=== PATIENT | female | born 1980 | race Caucasian/White ===

== ENCOUNTER 2019-04-03 08:25 | Emergency (ER) | payer SELFPAY ==
[2019-04-03 08:34] VITALS: BP 124/83; PULSE 99; RESP 18; TEMP 36.5; O2SAT 99; BMI 25.0
--- NOTE | 2019-04-03 08:45 | W.ED.ABDPA2 ---
HPI - Abdominal Pain General: Chief Complaint: Abdominal Pain Stated Complaint: abd pain, tooth pain Time Seen by Provider: 04/03/19 08:35 Source: patient Mode of arrival: ambulatory Limitations: no limitations History of Present Illness: HPI narrative: Patient comes in today for complaints of left lower molar pain for the last 2 to 3 days. And epigastric discomfort for the last 3 to 4 months. Patient appears well. Patient appears in mild pain. Patient states that she has had been recently diagnosed with HPV and needs a biopsy of her cervix. Patient reports that she has had dental problems for the last 4 years with some significant gum deterioration. Patient lacks the funds and insurance to get definitive care. Review of Systems General: Reports: 10 or more systems reviewed and unremarkable except in HPI and below ENMT: Reports: dental pain GI: Reports: abdominal pain PFSH ED PFSH: Statuses (acute, chronic, etc) shown below reflect problem list status as previously entered and may not be historically accurate Social History Smoking and tobacco status: current every day smoker Physical Exam Const: COMMON NORMALS: no apparent distress and oriented x3 GENERAL APPEARANCE: cooperative HENMT: COMMON NORMALS: normocephalic, external ears normal, EAC's normal, TM's normal bilaterally and external nose normal HEAD & SCALP: normal to inspection and normocephalic FACE & SINUS: normal facial exam NOSE: external nose normal GENERAL EAR: hearing not grossly impaired EXTERNAL EAR: Yes external ears normal EXTERNAL AUDITORY CANAL: EAC's normal TYMPANIC MEMBRANE: TM's normal bilaterally MOUTH: oral and palatal mucosa normal THROAT: posterior oropharynx normal Eye: COMMON NORMALS: PERRL and EOMs intact bilaterally PUPIL: Yes PERRL Neck/C-Spine: COMMON NORMALS: full ROM and no lymphadenopathy Lymph: LYMPHATIC: no lymphedema noted Chest: COMMONS NORMALS: inspection of chest normal and palpation of chest normal Resp: COMMON NORMALS: normal respiratory effort and clear to auscultation bilaterally AUSCULTATION: clear to auscultation bilaterally Cardio: COMMON NORMALS: regular rate and regular rhythm RATE: regular rate RHYTHM: regular rhythm GI: COMMON NORMALS: normal to inspection, nondistended, normoactive bowel sounds PALPATION: Yes tender (epigastric, mild, diffuse) : COMMON NORMALS: Yes no CVA tenderness BLADDER/KIDNEY EXAM: Yes no CVA tenderness Back/Pelvis: COMMON NORMALS: no CVA tenderness and thoracic and lumbar spine normal to inspection Extremity: COMMON NORMALS: normal to inspection GENERAL: No edema Neuro: COMMON NORMALS: oriented x3, moves all extremities and no focal motor deficits Psych: COMMON NORMALS: mental status grossly normal and cooperative Skin: COMMON NORMALS: no rashes or lesions noted GENERAL SKIN EXAM: no rashes or lesions noted Course Vital Signs: Vital signs: Vital Signs Temperature 97.7 F 04/03/19 08:34 Pulse Rate 99 04/03/19 08:34 Respiratory Rate 18 04/03/19 08:34 Blood Pressure 124/83 04/03/19 08:34 Pulse Oximetry 99 04/03/19 08:34 MDM - Abdominal Pain MDM Narrative: Medical decision making narrative: Patient comes in today with complaints of abdominal pain and dental pain. On exam patient has a small abscess to the second molar on the left lower jaw. Patient has poor dentition with significant recession of the gingiva. Decay is noted in the front lower teeth. Respirations are even lungs are clear to auscultation. Abdomen is soft no organomegaly and central epigastric tenderness is noted. Vital signs are stable. Differential diagnosis includes pancreatitis, cholecystitis, gastritis, gastroenteritis, dental infection, malingering, gingivitis. Laboratory values were normal. Ruling out cholecystitis and pancreatitis. Blood count was normal with early signs of significant anemia or leukocytosis. Reviewed exam with patient with recommendations for cessation of NSAIDs and treatment of dental infection. Patient reports understanding agreed with plan and need for follow-up. Lab Data: Labs: Lab Results 04/03/19 04/03/19 04/03/19 Range/Units 08:59 09:03 09:03 WBC 6.5 (4.0-10.0) 10^3/ uL RBC 5.14 (4.1-5.3) 10^6/u L Hgb 15.4 H (11.5-15.3) g/dL Hct 45.6 (37.0-47.0) % MCV 88.7 (81-99) fL MCH 30.0 (28.0-34.0) pg MCHC 33.8 (30.0-36.0) g/dL RDW 12.5 (12.1-15.1) % Plt Count 315 (130-400) 10^3/c mm MPV 9.3 (7.4-10.4) fL Neut % (Auto) 46.8 % Lymph % (Auto) 41.6 % Tate % (Auto) 7.1 % Eos % (Auto) 2.8 % Baso % (Auto) 1.4 % Neut # (Auto) 3.1 (1.8-7.7) 10^3/u L Lymph # (Auto) 2.7 (0.8-4.8) 10^3/u L Tate # (Auto) 0.5 (0.2-0.9) 10^3/u L Eos # (Auto) 0.2 (0.0-0.8) 10^3/u L Baso # (Auto) 0.1 (0.0-0.1) 10^3/u L Nucleated RBC % (a uto) 0 % Nucleated RBCs # 0.0 /100WBC Sodium 140 (136-145) mmol/L Potassium 4.0 (3.5-5.1) mmol/L Chloride 101 (98-107) mmol/L Carbon Dioxide 27 (22-29) mmol/L Anion Gap 16.0 (5-19) BUN 8 (6-20) mg/dL Creatinine 0.7 (0.5-0.9) mg/dL GFR Calculation 92.7 (90-130) mL/min Glucose 94 (74-109) mg/dL Calcium 10.7 H (8.6-10.0) mg/Dl Total Bilirubin 0.4 (0.15-1.2) mg/dL AST 12 (0-32) U/L ALT 10 (0-33) U/L Alkaline Phosphata se 87 (35-105) IU/L Total Protein 7.5 (6.6-8.7) g/dL Albumin 5.1 (3.5-5.2) g/dL Globulin 2.4 (1.3-4.6) g/dL Lipase 23 (13-60) U/L Urine Color Yellow (Yellow) Urine Appearance Sl hazy (CLEAR) Urine pH 7.0 (5-7) Ur Specific Gravit y 1.015 (1.005-1.030) Urine Protein Neg (Negative) Urine Glucose (UA) Norm (Normal) Urine Ketones Negative (Negative) Urine Occult Blood Neg (Negative) Urine Nitrate Negative (Negative) Urine Bilirubin 1+ H (NEGATIVE) Urine Urobilinogen Norm (Negative) mg/dL Ur Leukocyte Elba ase Trace H (Negative) Urine RBC None (0-2) /hpf Urine WBC 0-4 H (0-5) /hpf Ur Squamous Epith Cells 5-10 H (0-5) Urine Bacteria 2+ H (NONE) Urine Mucus 1+ Discharge Plan Discharge Patient Disposition: Home, Self-Care Clinical Impression: Abscess, dental, NSAID induced gastritis Condition: Stable Prescriptions: New omeprazole 40 mg capsule,delayed release(DR/EC) 40 mg PO DAILY Qty: 30 RF: 0 clindamycin HCl 150 mg capsule 450 mg PO BID 7 Days Qty: 42 RF: 0 tramadol 50 mg tablet 50 mg PO Q6H PRN (Reason: pain) Qty: 14 RF: 0 No Action ibuprofen 200 mg Tablet 800 mg PO Q4H PRN (Reason: Pain) RF: 0 Trelegy Ellipta 100-62.5-25 mcg Blister With Device 1 inh INHALATION DAILY RF: 0 Discharge Orders: Discharge Order (Routine); Ordered 04/03/19 Ordered By: Narciso Bernabe Referrals: Kathy Hwang MD [Family Provider] - Discharge Diet: Usual diet Discharge Activity: Increase activity as tolerated Patient Instructions: Gastritis (ED) Activity Restrictions/Additional Instructions: Drink plenty of fluids Use acetaminophen for further pain relief Limit the use of NSAIDS like ibuprofen and naproxen Follow-up with primary care Follow-up with Dentist for definitive care Case management for dental referral Coding Level of Care Code ED Sales Representative [employer] for Chg Fwd Exam Problem Focused
[2019-04-03 09:09] LABS: Basophils # 0.1 10^3/uL (0.0-0.1); Basophils % 1.4 %; Eosinophils # 0.2 10^3/uL (0.0-0.8); Eosinophils % 2.8 %; Hematocrit 45.6 % (37.0-47.0); Hemoglobin 15.4 g/dL (11.5-15.3); Lymphocytes # 2.7 10^3/uL (0.8-4.8); Lymphocytes % 41.6 %; Mean Corpuscular HGB Conc 33.8 g/dL (30.0-36.0); Mean Corpuscular Volume 88.7 fL (81-99); Mean Platelet Volume 9.3 fL (7.4-10.4); Monocytes # 0.5 10^3/uL (0.2-0.9); Monocytes % 7.1 %; Neutrophils # 3.1 10^3/uL (1.8-7.7); Neutrophils % 46.8 %; Nucleated Red Blood Cells % 0 %; Platelet Count 315 10^3/cmm (130-400); Red Blood Count 5.14 10^6/uL (4.1-5.3); Red Cell Distribution Width 12.5 % (12.1-15.1); White Blood Count 6.5 10^3/uL (4.0-10.0)
[2019-04-03 09:16] LABS: Bilirubin Urine 1+ (NEGATIVE); Blood Urine Neg (Negative); Glucose Urine UA Norm (Normal); Ketones Urine Negative (Negative); Leukocyte Esterase Urine Trace (Negative); Nitrate Urine Negative (Negative); Protein Urine Neg (Negative); Specific Gravity, Urine 1.015 (1.005-1.030); Urine Appearance SL Hazy (CLEAR); Urine Color Yellow (Yellow); Urobilinogen Urine Norm (Negative)
[2019-04-03 09:23] LABS: Add Urine Culture? No; Bacteria Urine 2+; Mucus Urine 1+; WBC Urine 0-4 /hpf (0-5)
[2019-04-03 09:28] LABS: Alanine Aminotransferase 10 U/L (0-33); Albumin Level 5.1 g/dL (3.5-5.2); Alkaline Phosphatase 87 IU/L (35-105); Aspartate Amino Transferase 12 U/L (0-32); Blood Urea Nitrogen 8 mg/dL (6-20); Calcium 10.7 mg/Dl (8.6-10.0); Carbon Dioxide 27 mmol/L (22-29); Chloride 101 mmol/L (98-107); Globulin 2.4 g/dL (1.3-4.6); Glomerular Filtration Rate 92.7 mL/min (90-130); Glucose 94 mg/dL (74-109); Lipase 23 U/L (13-60); Sodium 140 mmol/L (136-145); Total Bilirubin 0.4 mg/dL (0.15-1.2); Total Protein 7.5 g/dL (6.6-8.7)
[2019-04-03 09:51] VITALS: BP 120/80; PULSE 80; O2SAT 96
--- NOTE | 2019-04-04 11:35 | DCPLANNER ---
manager heart failure had message to speak with patient about a dental referral. manager heart failure called patient, unable to speak with patient at this time, a voicemail was left for patient to return welfare case worker phone call.
== END 2019-04-03 09:42 | disposition home or self-care (01) ==
PROVIDERS: Emergency Provider Nurse Practitioner Family; Family Provider Family Medicine
DX: K04.7 Periapical abscess without sinus (principal); K29.60 Other gastritis without bleeding; F17.210 Nicotine dependence, cigarettes, uncomplicated
CPT/HCPCS: 36415; 80053; 81001; 83690; 85025; 99282; A9270

== ENCOUNTER 2019-05-25 15:13 | Emergency (ER) | payer SELFPAY ==
[2019-05-25 15:21] VITALS: BP 121/75; PULSE 99; RESP 17; TEMP 36.6; O2SAT 97; BMI 25.6
--- NOTE | 2019-05-25 15:23 | ED_ITS ---
Entered by Donna Ramesh, acting as scribe for Trinity Hudson DO HPI - Fever General: Chief Complaint: Fever Stated Complaint: freezing, odd temps Time Seen by Provider: 05/25/19 15:22 Source: patient Mode of arrival: ambulatory Limitations: no limitations History of Present Illness: HPI Narrative: 38 yo f came to the er for freezing and odd temps. Onset was today. Pt states that she had a pap done and it came back positive so they have done a biopsy and that came back negative, pt was told not to have sex. Pt went out and had a lot to drink and had protected sex and she has been cramping since then. So pt would like to get stuff checked out. MD elicited complaint: other (freezing and low temps) Onset (ago): day(s) (last night) Exacerbating factors: nothing Relieving factors: nothing Associated symptoms: Reports no associated symptoms; Deny chills, chest pain or headache(s) Treatments prior to arrival fever: none Review of Systems General: Reports: other (negative unless marked) Const: Denies: fever, chills or fatigue ENMT: Denies: throat pain Card: Denies: chest pain or swelling of feet/ankles Resp: Denies: shortness of breath or productive cough GI: Reports: cramping : Denies: difficulty urinating Musc: Denies: back pain or extremity swelling Skin/Breast: Denies: rash Neuro: Denies: headache, numbness in extremities or weakness in extremities PFSH ED PFSH: Social History Smoking and tobacco status: former smoker Physical Exam Const: COMMON NORMALS: no apparent distress and oriented x3 GENERAL APPEARANCE: cooperative; not in distress HENMT: COMMON NORMALS: normocephalic HEAD & SCALP: normal to inspection and normocephalic MOUTH: oral and palatal mucosa normal and lip normal THROAT: posterior oropharynx normal and tonsils normal Neck/C-Spine: COMMON NORMALS: full ROM, no lymphadenopathy, supple and no meningeal signs GENERAL: Yes normal visual inspection and Yes trachea midline Chest: COMMONS NORMALS: inspection of chest normal Resp: COMMON NORMALS: normal respiratory effort and clear to auscultation bilaterally EFFORT & INSPECTION: Yes able to speak in complete sentences and No respiratory distress AUSCULTATION: clear to auscultation bilaterally, no rales, no rhonchi and no wheezes Cardio: COMMON NORMALS: regular rate, regular rhythm, S1 normal heart sound, S2 normal heart sound and no murmurs RATE: regular rate RHYTHM: regular rhythm HEART SOUNDS: S1 normal and S2 normal PERIPHERAL PULSES: radial pulses present and dorsalis pedis pulses present GI: COMMON NORMALS: normal to inspection, nondistended, normoactive bowel sounds, soft to palpation and non-tender INSPECTION: Yes normal to inspection AUSCULTATION: Yes normoactive bowel sounds PALPATION: Yes soft, No tender, No guarding and No rigid RECTAL EXAM: deferred : COMMON NORMALS: Yes no CVA tenderness, Yes external appearance normal, Yes appearance of the vagina normal, Yes appearance of the cervix normal, Yes bimanual exam normal and Yes adnexae non-tender BLADDER/KIDNEY EXAM: Yes no CVA tenderness SPECULUM EXAM - VAGINA: No foreign body in vagina, No vaginal bleeding and No tissue present in vagina BIMANUAL EXAM - VAGINA & UTERUS: Yes normal bimanual exam OB/EXTERNAL & SPECULUM: external exam normal and vaginal discharge (mild white); no foreign bodies, no herpetic lesions, no tissue noted in vagina, no vulvar tenderness and vaginal bleeding UTERUS PALPATION: No uterus tender Back/Pelvis: COMMON NORMALS: no CVA tenderness Extremity: COMMON NORMALS: normal to inspection, full ROM, normal capillary refill, no calf tenderness and no pedal edema Neuro: COMMON NORMALS: oriented x3, CN's II-XII intact bilaterally, moves all extremities and no focal motor deficits MENINGEAL SIGNS: Yes no meningeal signs Skin: COMMON NORMALS: no rashes or lesions noted GENERAL SKIN EXAM: no rashes or lesions noted Course Vital Signs: Vital signs: Vital Signs Temperature 97.8 F 05/25/19 15:21 Pulse Rate 99 05/25/19 15:21 Respiratory Rate 17 05/25/19 15:21 Blood Pressure 121/75 05/25/19 15:21 Pulse Oximetry 97 05/25/19 15:21 MDM - Fever MDM Narrative: Medical decision making narrative: pt may have had exposure to std's, pts pelvic exam is normal, except for mild white vaginal discharge, labs pending, Dr Fung states he will d/u and send her home Lab Data: Attestation: I reviewed the patient's lab results. Labs: Lab Results 05/25/19 05/25/19 Range/Units 15:37 15:37 HCG, Qual Negative (Negative) Urine Color Yellow (Yellow) Urine Appearance Clear (CLEAR) Urine pH 7 (5-7) Ur Specific Gravit y 1.005 (1.005-1.030) Urine Protein Neg (Negative) Urine Glucose (UA) Norm (Normal) Urine Ketones Negative (Negative) Urine Blood Neg (Negative) Urine Nitrate Negative (Negative) Urine Bilirubin Neg (NEGATIVE) Urine Urobilinogen Norm (Negative) mg/dL Ur Leukocyte Elba ase Negative (Negative) Discharge Plan Discharge Patient Disposition: Home, Self-Care Clinical Impression: Concern about STD in female without diagnosis Condition: Stable Prescriptions: No Action ibuprofen 200 mg Tablet 800 mg PO Q4H PRN (Reason: Pain) RF: 0 Trelegy Ellipta 100-62.5-25 mcg Blister With Device 1 inh INHALATION DAILY RF: 0 omeprazole 40 mg capsule,delayed release(DR/EC) 40 mg PO DAILY Qty: 30 RF: 0 tramadol 50 mg tablet 50 mg PO Q6H PRN (Reason: pain) Qty: 14 RF: 0 Referrals: Kathy Hwang MD [Family Provider] - 1-3 days Discharge Diet: Advance as tolerated Patient Instructions: Sexually Transmitted Diseases (ED), Safe Sex (ED) Activity Restrictions/Additional Instructions: return if worse, any problem, any change Coding Level of Care Code ED Hvac Commercial Salesperson for g Fwd Exam Comprehensive The documentation recorded by the Gadiel knutson Stephanie Lyn, accurately reflects the service I personally performed and the decisions made by Becca pickett Sonia M, DO May 25, 2019 15:13
[2019-05-25 15:59] LABS: Add Urine Microscopic? NO
[2019-05-25 16:09] LABS: Bilirubin Urine Neg (NEGATIVE); Blood Urine Neg (Negative); Glucose Urine UA Norm (Normal); Ketones Urine Negative (Negative); Leukocyte Esterase Urine Negative (Negative); Nitrate Urine Negative (Negative); Protein Urine Neg (Negative); Specific Gravity, Urine 1.005 (1.005-1.030); Urine Appearance Clear (CLEAR); Urine Color Yellow (Yellow); Urobilinogen Urine Norm (Negative); pH Urine 7 (5-7)
[2019-05-25 16:10] LABS: HCG Qualitative Urine. Negative (Negative)
[2019-05-25] MEDS: azithromycin 250 mg Tablet 1000 MG PO (16:42)
[2019-05-25] MEDS: cefTRIAXone 250 mg SDV 125 MG IM (16:43)
[2019-05-25] MEDS: metroNIDAZOLE 500 MG Tablet 2000 MG PO (16:43)
[2019-05-25 16:45] VITALS: BP 108/87; PULSE 87; RESP 18; TEMP 36.6; O2SAT 99
== END 2019-05-25 16:49 | disposition home or self-care (01) ==
PROVIDERS: Emergency Provider Emergency Medicine; Family Provider Family Medicine
DX: N89.8 Other specified noninflammatory disorders of vagina (principal); Z87.891 Personal history of nicotine dependence
CPT/HCPCS: 12345; 81003; 81025; 87210; 87491; 87591; 96372; 99283; 99284; A9270; J0696; Q0144

== ENCOUNTER 2019-05-30 14:31 | Outpatient (CLI) | payer SELFPAY ==
--- NOTE | 2019-05-30 14:15 | US_ITS ---
WS: [id number] PELVIC ULTRASOUND REASON FOR VISIT: ABNORMAL UTERINE BLEEDING TECHNIQUE: Grayscale and Doppler transabdominal and transvaginal pelvic ultrasound. FINDINGS: Transabdominal transvaginal ultrasound. Uterus measures 7.4 cm x 4.4 cm x 4.0 cm, right ovary measures 2.1 cm x 2.6 cm x 1.8 cm, and left ova ry measures 3.6 cm x 1.8 cm x 1.7 cm. Both ovaries show normal blood flow. The tubes were normal. US/US pelvic with transvaginal IMPRESSION: Normal-appearing pelvis and ovaries.
== END 2019-05-30 14:32 | disposition home or self-care (01) ==
LOC: US 14:34
PROVIDERS: Family Provider Family Medicine; PCP Family Medicine; Visit Provider Family Medicine
DX: N93.9 Abnormal uterine and vaginal bleeding, unspecified (principal)
CPT/HCPCS: 76830; 76856

== ENCOUNTER 2019-08-04 18:49 | Emergency (ER) | payer SELFPAY ==
[2019-08-04 19:06] VITALS: BP 121/84; PULSE 73; RESP 14; TEMP 36.5; O2SAT 98; BMI 25.7
--- NOTE | 2019-08-04 20:15 | ED_ITS ---
HPI - Dental/Oral General: Chief complaint: Dental/Oral Stated complaint: oral pain Time Seen by Provider: 08/04/19 20:09 History of Present Illness: HPI Narrative: Candace is a very nice 38-year-old female who comes in complaining of pain on the left lower side of her mouth. Her second to last molar has an obvious dental carry and the tooth is partially broken. She denies any facial swelling, fever, vomiting, difficulty talking, difficulty swallowing, or any other complaint. She has been trying Tylenol and Motrin [id number] but this is not helped her pain. She did take someone else's amoxicillin but has only taken 2 doses. Teeth map: 1. Dental luis Review of Systems General: Reports: 10 or more systems reviewed and unremarkable except in HPI and below PFSH ED PFSH: Medical History Asthma Surgical History H/O tubal ligation Social History Smoking and tobacco status: current every day smoker Female Reproductive History: Date of last menstrual period: 08/02/19 Physical Exam Const: COMMON NORMALS: no acute distress, patient oriented x3, no limitations, healthy appearing and well nourished EXAM LIMITATIONS: no altered mental status GENERAL APPEARANCE: cooperative, well kempt and well developed HENMT: COMMON NORMALS: normocephalic, atraumatic, hearing grossly normal bilaterally, external ears normal, EAC's normal, Normal external nose present and moist oral mucous membranes HEAD & SCALP: normal to inspection, normocephalic and atraumatic FACE & SINUS: normal facial exam and face symmetric NOSE: Normal external nose present and Normal nares present EXT ERNAL EAR: Yes external ears normal EXTERNAL AUDITORY CANAL: EAC's normal MOUTH: Normal oral and palatal mucosa present, lip normal and tongue normal TEETH & GINGIVA IMAGES: 1. Extensive dental carry with fractured tooth down to the root. No obvious associated dental abscess. Eye: COMMON NORMALS: Equal, round and reactive pupils present, EOMs intact bilaterally, conjunctivae normal and no scleral icterus GENERAL EYE: appearance normal, both eyes and all related structures ALIGNMENT: Yes alignment normal PERIORBITAL: periorbital findings normal EYELID: eyelids normal CONJUNCTIVA: Yes conjunctivae normal SCLERA: sclerae normal PUPIL: Yes Equal, round and reactive pupils present Neck/C-Spine: COMMON NORMALS: full ROM, no lymphadenopathy, supple, no meningeal signs and no JVD GENERAL: Yes normal visual inspection and Yes trachea midline CERVICAL SPINE: Yes cervical ROM normal Chest: COMMONS NORMALS: normal inspection of the chest and normal palpation of entire chest wall Resp: COMMON NORMALS: normal respiratory effort, No retractions, No use of accessory muscles and clear to auscultation bilaterally EFFORT & INSPECTION: Yes able to speak in complete sentences AUSCULTATION: clear to auscultation bilaterally, no crackles, no rales, no rhonchi and no wheezes Cardio: COMMON NORMALS: no JVD, regular rate, regular rhythm, S1 normal heart sound present, S2 normal heart sound present, No gallops present (Cardio), No clicks present (Cardio), No murmurs present (Cardio) and No rub (Cardio) RATE: regular rate RHYTHM: regular rhythm HEART SOUNDS: S1 normal heart sound present, S2 normal heart sound present, no click, no gallops, no murmurs and no rubs GI: COMMON NORMALS: Soft to palpation, non-tender, No hepatosplenomegaly present and no masses PALPATION: Yes Soft to palpation, No Tenderness to palpation present (GI), No Guarding due to palpation present (GI), No Rigid due to palpation, Yes No hepatosplenomegaly present, No Hernia present, No Palpable mass present and No Pulsatile mass present : COMMON NORMALS: Yes no CVA tenderness BLADDER/KIDNEY EXAM: Yes no CVA tenderness EXTERNAL FEMALE EXAM: No Hernia present Back/Pelvis: COMMON NORMALS: no CVA tenderness, thoracic and lumbar spine normal to inspection, no thoracic nor lumbar tenderness and thoraco-lumbar ROM normal Extremity: COMMON NORMALS: normal to inspection, full ROM, capillary refill normal, no joint enlargement, no clubbing, cyanosis or edema and no calf tenderness Neuro: COMMON NORMALS: patient oriented x3, CN's II-XII intact bilaterally, moves all extremities, no focal motor deficits and no sensory deficits noted MENINGEAL SIGNS: Yes no meningeal signs SPEECH: speech normal Psych: COMMON NORMALS: mental status grossly normal, Normal thought process present, cooperative, normal affect, speech normal and activity/motor behavior normal APPEARANCE: Yes well kempt SPEECH: Yes normal speech THOUGHT PROCESS: Normal thought process present Skin: COMMON NORMALS: no rashes or lesions noted, turgor normal, no jaundice, no petechiae and no mottling GENERAL SKIN EXAM: no rashes or lesions noted and turgor normal Course Vital Signs: Vital signs: Vital Signs Temperature 97.7 F 08/04/19 19:06 Pulse Rate 58 L 08/04/19 20:35 Respiratory Rate 14 08/04/19 20:35 Blood Pressure 122/88 08/04/19 20:35 Pulse Oximetry 98 08/04/19 20:35 MDM - Dental/Oral MDM Narrative: Medical decision making narrative: Candace is a nice 38-year-old female who comes in complaining of pain from cavity. There is no associated abscess at this time. There is no sign of Yeison's angina, airway compromise, swelling of the floor of the mouth or airway issue. Patient unders tands she will need to see a dentist definitively. I will start her on clindamycin and give her a dose of something here for pain. She understands the reasons to return including worsening infection, swelling of her face or she has any other concerns. Discharge Plan Discharge Patient Disposition: Home, Self-Care Clinical Impression: Toothache, Dental caries Condition: Stable Prescriptions: New Cleocin HCl 150 mg capsule 300 mg PO Q6H 10 Days Qty: 80 RF: 0 No Action ibuprofen 200 mg Tablet 800 mg PO BID PRN (Reason: Pain) RF: 0 Trelegy Ellipta 100-62.5-25 mcg Blister With Device 1 inh INHALATION DAILY RF: 0 Discharge Orders: Discharge Order (Routine); Ordered 08/04/19 Ordered By: Norma Johnson Referrals: Kathy Hwang MD [Primary Care Provider] - 1-3 days Discharge Diet: Advance as tolerated Discharge Activity: Increase activity as tolerated Patient Instructions: Dental Caries (ED), Toothache (ED) Activity Restrictions/Additional Instructions: Please return to the ER immediately for any of the signs or symptoms listed on your discharge instruction sheets, worsening/changing of your symptoms, you are not getting better as quickly as expected, or for ANY other cause or concerns. Be certain to follow-up with a dentist as soon as possible for definitive management of your cavity. Discharge Date/Time: 08/04/19 20:36 Coding Level of Care Code ED Electrical Engineering Technologist for Chg Fwd Exam Comprehensive
[2019-08-04] MEDS: HYDROcodone-acetaminophen 5-325 mg Tablet 1 TAB PO (20:32)
[2019-08-04] MEDS: clindamycin 150 mg Capsule 300 MG PO (20:32)
[2019-08-04 20:35] VITALS: BP 122/88; PULSE 58; RESP 14; O2SAT 98
== END 2019-08-04 20:36 | disposition home or self-care (01) ==
PROVIDERS: Emergency Provider Emergency Medicine; PCP Family Medicine
DX: K02.9 Dental caries, unspecified (principal); J45.909 Unspecified asthma, uncomplicated; F17.210 Nicotine dependence, cigarettes, uncomplicated
CPT/HCPCS: 12345; 99281; 99283

== ENCOUNTER 2019-08-23 17:35 | Emergency (ER) | payer OTHER, SELFPAY ==
[2019-08-23 17:44] VITALS: BP 118/81; PULSE 86; RESP 18; TEMP 37.7; O2SAT 97; BMI 24.6
--- NOTE | 2019-08-23 17:59 | ED_ITS ---
HPI - General Adult General: Chief complaint: General Medical Stated complaint: POSS COVID SYMPTOMS Time Seen by Provider: 08/23/19 17:49 Source: patient Mode of arrival: ambulatory Limitations: no limitations History of Present Illness: HPI narrative: Patient presents to be tested for COVID-19. The patient is asymptomatic but states that her daughter tested positive and she spends a lot of time with her daughter. The patient is a smoker and has chronic cough, her cough is unchanged. She denies a fever, denies change in taste or smell, denies any GI symptoms. She is here only to get tested Associated symptoms: Deny dyspnea, headache(s), nausea, rash, palpitations or vomiting Review of Systems General: Reports: 10 or more systems reviewed and unremarkable except in HPI and below Const: Denies: fever(s), chills or body aches Card: Denies: palpitations, irregular heart rhythm, edema or swelling of f eet/ankles Resp: Denies: dyspnea, productive cough or non-productive cough GI: Denies: abdominal pain, nausea or vomiting : Denies: flank pain, difficulty voiding, dysuria, urinary frequency, urinary urgency or urinary hesitancy Musc: Denies: neck pain, back pain or extremity swelling Skin/Breast: Denies: rash, pruritus or erythema Neuro: Denies: headache(s), numbness in extremities or weakness in extremities Endo: Denies: polyuria, polydipsia or tired all the time [facility] ED PFSH: Medical History (Updated 08/23/19 @ 18:51 by Jose Garza MD, [facility] – [place], [place]) Asthma Surgical History H/O tubal ligation Social History Smoking and tobacco status: current every day smoker Current gender identity: Female Female Reproductive History: Date of last menstrual period: 08/02/19 Physical Exam Const: COMMON NORMALS: no acute distress, average body habitus, patient oriented x3, no limitations, healthy appearing, alert and well nourished Neck/C-Spine: COMMON NORMALS: no meningeal signs and no JVD Resp: COMMON NORMALS: normal respiratory effort, No retractions, No use of accessory muscles, clear to auscultation bilaterally and percussion normal AUSCULTATION: clear to auscultation bilaterally PERCUSSION: percussion normal Cardio: COMMON NORMALS: no JVD, regular rate, regular rhythm, S1 normal heart sound present, S2 normal heart sound present, No gallops present (Cardio), No clicks present (Cardio), No murmurs present (Cardio), No rub (Cardio) and Peripheral pulses 2+ throughout RATE: regular rate RHYTHM: regular rhythm HEART SOUNDS: S1 normal heart sound present and S2 normal heart sound present PERIPHERAL PULSES: Peripheral pulses 2+ throughout GI: COMMON NORMALS: Normal to inspection, nondistended, normoactive bowel adrian nds present, Soft to palpation, non-tender, No hepatosplenomegaly present, no masses and no bruits PALPATION: Yes Soft to palpation and Yes No hepatosplenomegaly present : COMMON NORMALS: Yes no CVA tenderness BLADDER/KIDNEY EXAM: Yes no CVA tenderness Back/Pelvis: COMMON NORMALS: no CVA tenderness Extremity: COMMON NORMALS: normal to inspection, full ROM, capillary refill normal, no calf tenderness and no pedal edema Neuro: COMMON NORMALS: patient oriented x3 SENSORIUM/ORIENTATION: Yes alert MENINGEAL SIGNS: Yes no meningeal signs Course Vital Signs: Vital signs: Vital Signs Temperature 99.9 F H 08/23/19 17:44 Pulse Rate 77 08/23/19 19:05 Respiratory Rate 16 08/23/19 19:05 Blood Pressure 166/78 08/23/19 19:05 Pulse Oximetry 99 08/23/19 19:05 MDM - General Adult MDM Narrative: Medical decision making narrative: Patient who presented to get tested for COVID-19. She is asymptomatic. She was tested on discharged home, she will be contacted with the results. Medical Records: Attestation: I reviewed the patient's medical records. Discharge Plan Discharge Patient Disposition: Home, Self-Care Clinical Impression: Physically well but worried Condition: Stable Prescriptions: Continued buspirone 10 mg tablet 5 mg PO TID MDD 60 mg Qty: 60 RF: 1 escitalopram oxalate [Lexapro] 20 mg tablet 20 mg PO DAILY MDD 40 Qty: 30 RF: 1 clonazepam [Klonopin] 0.5 mg tablet 0.5 mg PO QID PRN (Reason: anxiety) Qty: 60 RF: 1 ibuprofen 200 mg Tablet 800 mg PO BID PRN (Reason: Pain) RF: 0 Trelegy Ellipta 100-62.5-25 mcg Blister With Device 1 inh INHALATION DAILY RF: 0 Discharge Orders: Discharge Order (Routine); Ordered 08/23/19 Ordered By: Jose Garza Referrals: Kathy Hwang MD [Primary Care Provider] - 4-7 days Activity Restrictions/Additional Instructions: You will be contacted with the results of the COVID-19 testing. Return for any new or worsening symptoms. Until you receive the results of your test, please self isolate. Discharge Date/Time: 08/23/19 19:08 Coding Level of Care Code ED [employer] for Cristobal Pickett
[2019-08-23 18:00] VITALS: RESP 18
--- NOTE | 2019-08-23 18:05 | PC.NURSE ---
Patient swabbed for COVID-19,swab sent to lab immediately after for testing.
[2019-08-23 19:05] VITALS: BP 166/78; PULSE 77; RESP 16; O2SAT 99
[2019-08-26 11:27] LABS: Quest SARS-CoV-2 RNA NOT DETECTED (NOT DETECTED)
--- NOTE | 2019-08-26 18:28 | PC.NURSE ---
1630 Pt was called and notified of negative COVID results
== END 2019-08-23 19:08 | disposition home or self-care (01) ==
PROVIDERS: Emergency Provider Family Medicine; PCP Family Medicine
DX: Z20.828 Contact with and (suspected) exposure to other viral communicable diseases (principal); J45.909 Unspecified asthma, uncomplicated; F17.210 Nicotine dependence, cigarettes, uncomplicated
CPT/HCPCS: 12345; 87635; 99281; 99283

== ENCOUNTER → 2019-11-19 12:22 | Outpatient (BNVA) | payer OTHER, SELFPAY | PROVIDERS: PCP Family Medicine; Visit Provider Nurse Practitioner Family | DX: Z20.828 Contact with and (suspected) exposure to other viral communicable diseases (principal); J06.9 Acute upper respiratory infection, unspecified | CPT/HCPCS: 87635 ==

== ENCOUNTER 2020-01-25 10:38 | Emergency (ER) | payer SELFPAY ==
[2020-01-25] VITALS (7 sets, daily range): BP systolic 101–138; BP diastolic 69–89; PULSE 60–91; RESP 18–22; TEMP 36.6; O2SAT 94–100; BMI 25.0
--- NOTE | 2020-01-25 10:39 | ECG_ITS ---
[facility] Test Date: 2020-01-25 Pat Name: Candace Gresham Department: Room: Gender: Female Nurse Head: : 1980 Requested By: Marquez Ramos Order Number: [id number] David MD: Jacinto Salas M.D. Measurements Intervals [place] Rate: 78 P: 59 [place]: 171 QRS: 73 QRSD: 88 T: 59 QT: 361 QTc: 414 Interpretive Statements SINUS RHYTHM POSSIBLE LEFT ATRIAL ENLARGEMENT [-0.1mV P WAVE IN V1/V2] No previous ECG available for comparison Electronically Signed On 01-25-2020 21:12:50 DATA MANAGEMENT ENGINEER by Jacinto Salas M.D. [id number]
--- NOTE | 2020-01-25 10:39 | XRR_ITS ---
PROCEDURE INFORMATION: Exam: XR Chest, 1 View Exam date and time: 01/25/2020 10:40 AM Age: 39 years old Clinical indication: Sternal or substernal pain; Patient HX: Pain x3 wks. ; Additional info: Cp TECHNIQUE: Imaging protocol: XR of the chest Views: 1 view. COMPARISON: CR Chest 2 views* [id number] 11/12/2018 12:39 PM FINDINGS: Lungs: Emphysematous change and interstitial prominence. Pleural space: No pleural effusion. Heart/Mediastinum: No cardiomegaly. Bones/joints: Unremarkable. XR/XR chest 1V portable [id number] IMPRESSION: Emphysematous change and interstitial prominence.
--- NOTE | 2020-01-25 10:51 | CTR_ITS ---
PROCEDURE INFORMATION: Exam: CT Neck With Contrast Exam date and time: 01/25/2020 11:11 AM Age: 39 years old Clinical indication: Neck pain; Additional info: Possible abscess TECHNIQUE: Imaging protocol: Computed tomography images of the neck with intravenous contrast. Radiation optimization: All CT scans at this facility use at least one of these dose optimization techniques: automated exposure control; mA and/or kV adjustment per patient size (includes targeted exams where dose is matched to clinical indication); or iterative reconstruction. Contrast material: OMNIPAQUE 300; Contrast volume: 75 ml; Contrast route: INTRAVENOUS (IV); COMPARISON: CT neck w con* [id number] 07/16/2014 4:22 PM RADIATION DOSE METRICS: Total DLP (mGy-cm): 664.47 FINDINGS: Paranasal sinuses: A cyst/polyp is present in the right maxillary sinus. Nasopharynx: Unremarkable. Dental: Left mandibular 1st molar 5 mm periapical abscess (series 602, image 39) with lateral cortical breakthrough (series 601, image 74). Oropharynx: Unremarkable. No significant tonsillar enlargement. Hypopharynx: Unremarkable. Larynx: Unremarkable. Normal epiglottis. Retropharyngeal space: Unremarkable. Submandibular/Parotid glands: Normal. Glands are normal in size. Thyroid: Normal. No enlarged or calcified nodules. Lymph nodes: 4.3 mm short axis lymph node superficial to the right parotid gland, stable. Right level 2 lymph node measuring 8.1 mm short axis, previously 7.2 mm. Left level 2 lymph node measuring 7.7 mm short axis, previously 9.1 mm. Right level 3 lymph node measuring 4.5 mm short axis, previously 3.5 mm. Trachea: Visualized trachea is unremarkable. Lungs: Unremarkable as visualized. Bones/joints: C5-6 degenerative disc disease with moderate spondylosis. Soft tissues: Mild paraseptal/centrilobular emphysema bilaterally. CT/CT neck w con* [id number] IMPRESSION: 1. Mild nonspecific lymphadenopathy. No soft tissue neck abscess identified. 2. Left mandibular 1st molar periapical abscess. 3. C5-6 spondylosis. Possible anterior cord impingement. Clinical correlation with the patient's specific symptomatology is recommended. 4. Pulmonary emphysema. Radiation Dose CTDIVOL = (mGy): DLP = 664.47 (mGy-cm)
[2020-01-25 11:18] LABS: Basophils # 0.1 10^3/uL (0.0-0.1); Basophils % 0.9 %; Eosinophils # 0.2 10^3/uL (0.0-0.8); Eosinophils % 2.1 %; Hematocrit 46.5 % (37.0-47.0); Hemoglobin 15.4 g/dL (11.5-15.3); Lymphocytes # 3.1 10^3/uL (0.8-4.8); Lymphocytes % 41.5 %; Mean Corpuscular HGB Conc 33.1 g/dL (30.0-36.0); Mean Corpuscular Hemoglobin 30.6 pg (28.0-34.0); Mean Corpuscular Volume 92.4 fL (81-99); Mean Platelet Volume 9.5 fL (7.4-10.4); Monocytes # 0.5 10^3/uL (0.2-0.9); Neutrophils # 3.65 10^3/uL (1.8-7.7); Neutrophils % 48.4 %; Nucleated Red Blood Cells % 0 %; Platelet Count 317 10^3/cmm (130-400); Red Blood Count 5.03 10^6/uL (4.1-5.3); Red Cell Distribution Width 12.8 % (12.1-15.1); White Blood Count 7.6 10^3/uL (4.0-10.0)
[2020-01-25 11:33] LABS: Alanine Aminotransferase 12 U/L (0-33); Albumin Level 4.8 g/dL (3.5-5.2); Alkaline Phosphatase 81 IU/L (35-105); Anion Gap 13.8 (5-19); Aspartate Amino Transferase 12 U/L (0-32); Blood Urea Nitrogen 9 mg/dL (6-20); Calcium 9.5 mg/dL (8.5-10.5); Carbon Dioxide 27 mmol/L (22-29); Chloride 103 mmol/L (98-107); Globulin 2.5 g/dL (1.3-4.6); Glomerular Filtration Rate 110.2 mL/min (90-130); Glucose 85 mg/dL (65-115); Osmolality Calculated 288 mOsm/kg (285-295); Potassium 3.8 mmol/L (3.5-5.1); Sodium 140 mmol/L (136-145); Total Bilirubin 0.3 mg/dL (0.15-1.2); Total Protein 7.3 g/dL (6.6-8.7)
[2020-01-25 11:35] LABS: Troponin(5th) Baseline 6 ng/L (0-10)
[2020-01-25] MEDS: iohexol 300 mg/mL 100 mL Btl IV (12:09)
--- NOTE | 2020-01-25 12:39 | ECG_ITS ---
[facility] Test Date: 2020-01-25 Pat Name: Candace Gresham Department: Room: Gender: Female [employer] Pump Operator: : 1980 Requested By: Marquez Ramos Order Number: [id number] David MD: Jacinto Salas M.D. Measurements Intervals [place] Rate: 56 P: 42 MD: 186 QRS: 70 QRSD: 83 T: 49 QT: 419 QTc: 406 Interpretive Statements SINUS BRADYCARDIA Compared to ECG 01/25/2020 10:45:16 Sinus rhythm no longer present Electronically Signed On 01-25-2020 21:23:21 ROLL FILLER by Jacinto Salas M.D. [id number]
[2020-01-25] MEDS: morphine 4 mg/mL SDV 1 mL IVP (12:59)
--- NOTE | 2020-01-25 13:27 | ED_ITS ---
HPI - Chest Pain General: Chief Complaint: Chest Pain Stated Complaint: LEFT CHEST PAIN Time Seen by Provider: 01/25/20 10:41 Source: patient Mode of arrival: ambulatory Limitations: no limitations History of Present Illness: HPI narrative: 39 yo female patient presents to ER with left sided chest pain that started this am. Pt states she pulled an infected toother herself about 3 weeks ago and has had mouth pain and neck pain and now has gone into her chest. Pt denies any fever. Pt denies any SOB. Pt denies any abd pain n/v/d. Associated symptoms: Deny abdominal pain, diaphoresis, dyspnea, fever(s), nausea, palpitations, syncope or vomiting Review of Systems Const: Denies: fever(s), chills, body aches, change in appetite, change in weight, fatigue, malaise or diaphoresis Eyes: Denies: change in vision, blurry vision, blind spots, photophobia, eye discomfort, eye discharge, eye redness, floaters or seeing flashes ENMT: Reports: mouth pain and dental pain; Denies: throat pain, uvular edema, enlarged tonsils, odynophagia, hoarseness, swelling of lips/tongue, oral sores, bleeding gums, dry mouth, ear or mastoid pain, ear discharge, change in hearing, tinnitus, disequilibrium, nasal discharge, nasal congestion, post nasal drip or sinus pain Card: Reports: chest pain; Denies: palpitations, irregular heart rhythm, edema, swelling of feet/ankles, lightheadedness, syncope, pre-syncope, dyspnea on exertion, orthopnea, leg pain with exertion or acrocyanosis Resp: Denies: dyspnea, productive cough, non-productive cough, wheezing, str idor, pain on inspiration, change in phlegm color, hemoptysis or chest congestion GI: Denies: abdominal pain, nausea, vomiting, hematemesis, dysphagia, diarrhea, constipation, GI cramping, change in bowel habits or rectal pain : Denies: flank pain, difficulty voiding, dysuria, urinary frequency, urinary urgency, urinary hesitancy or hematuria Musc: Denies: neck pain, back pain, extremity pain, extremity swelling, joint pain, joint swelling, joint redness, joint warmth or deformity Skin/Breast: Denies: rash, pruritus, erythema, sores, new lesions, changes in skin color or dry skin Neuro: Denies: headache(s), numbness in extremities, weakness in extremities, sensory changes, lack of coordination, difficulty walking, frequent falls, dizziness, vertigo, confusion, behavioral changes, Slurred speech present, difficulty communicating thoughts or seizure-like activity Psych: Denies: anxiety, depression, suicidal ideation or homicidal ideation Endo: Denies: polyuria, polydipsia, tired all the time, cold intolerance, excessive sweating, flushing, hot flashes or heat intolerance Mil/Lymph: Denies: easy bruising, easy bleeding, petechiae, purpura, enlarged lymph nodes or tender lymph nodes All/Imm: Denies: urticaria, throat swelling, tongue swelling, facial swelling, acute wheezing or itchy eyes PFSH ED PFSH: Medical History (Updated 01/25/20 @ 14:14 by Aretha Rodríguez) Asthma Surgical History H/O tubal ligation Social History Smoking and tobacco status: current every day smoker Current gender identity: Female Female Reproductive History: Date of last menstrual period: 08/02/19 Physical Exam Const: COMMON NORMALS: no acute distress, patient oriented x3, healthy appearing, alert and well nourished GENERAL APPEARANCE: cooperative, comfortable, well kempt and well developed; not ill appearing ORIENTATION/CONSCIOUSNESS: Yes awake, Yes oriented to pe rson, Yes oriented to place and Yes oriented to time HENMT: COMMON NORMALS: normocephalic, atraumatic, hearing grossly normal bilaterally, external ears normal, EAC's normal, TM's normal bilaterally, Normal external nose present, Normal nasal mucous membranes and turbinates present and moist oral mucous membranes HEAD & SCALP: normal to inspection, normocephalic and atraumatic FACE & SINUS: normal facial exam, sinuses nontender, face symmetric and Facial tenderness on exam of face and sinuses on the left; no edema NOSE: Normal external nose present, Normal nares present, Normal nasal mucous membranes and turbinates present, No nasal discharge present and Abnormal external nose present EXTERNAL EAR: Yes external ears normal and Yes mastoids normal EXTERNAL AUDITORY CANAL: EAC's normal TYMPANIC MEMBRANE: TM's normal bilaterally MOUTH: Normal oral and palatal mucosa present, lip normal, tongue normal and Normal salivary glands and ducts present TEETH & GINGIVA: Yes abnormal tooth and associated gingiva THROAT: posterior oropharynx normal; no uvular edema Eye: COMMON NORMALS: Equal, round and reactive pupils present, EOMs intact bilaterally, conjunctivae normal, no scleral icterus and no papilledema GENERAL EYE: appearance normal, both eyes and all related structures EYELID: eyelids normal CONJUNCTIVA: Yes conjunctivae normal SCLERA: sclerae normal CORNEA: Yes corneas normal PUPIL: Yes Equal, round and reactive pupils present DIRECT OPHTHALMOSCOPY: Yes no papilledema Neck/C-Spine: COMMON NORMALS: full ROM, no lymphadenopathy, supple, no meningeal signs, no JVD and Thyroid normal GENERAL: Yes normal visual inspection and Yes trachea midline THYROID: Thyroid normal CERVICAL SPINE: Yes cervical ROM normal Lymph: LYMPHATIC: no lymphadenopathy noted and no lymphedema noted Chest: COMMONS NORMALS: normal inspection of the chest and normal palpation of entire chest wall Resp: COMMON NORMALS: normal respiratory effort, No retractions, No use of accessory muscles and clear to auscultation bilaterally EFFORT & INSPECTION: Yes able to speak in complete sentences and Yes symmetric chest movement AUSCULTATION: clear to auscultation bilaterally Cardio: COMMON NORMALS: no JVD, regular rate and regular rhythm RATE: regular rate RHYTHM: regular rhythm GI: COMMON NORMALS: Normal to inspection, nondistended, normoactive bowel sounds present, Soft to palpation, non-tender, No hepatosplenomegaly present, no masses and no bruits INSPECTION: Yes normal to inspection AUSCULTATION: Yes normoactive bowel sounds PALPATION: Yes Soft to palpation and Yes No hepatosplenomegaly present PERCUSSION: normal to percussion RECTAL EXAM: deferred : COMMON NORMALS: Yes no CVA tenderness, Yes normal external appearance, Yes normal appearance of the vagina, Yes normal appearance of the cervix, Yes normal bimanual exam, Yes No adnexal tenderness and Yes no masses BLADDER/KIDNEY EXAM: Yes no CVA tenderness BIMANUAL EXAM - VAGINA & UTERUS: Yes normal bimanual exam Back/Pelvis: COMMON NORMALS: no CVA tenderness, thoracic and lumbar spine normal to inspection, no thoracic nor lumbar tenderness, thoraco-lumbar ROM normal and straight leg raise negative bilaterally THORACIC SPINE/UPPER BACK: Yes normal to inspection LUMBAR SPINE/LOWER BACK: Yes normal to inspection Extremity: COMMON NORMALS: normal to inspection, full ROM and capillary refill normal GENERAL: Yes normal exam except as noted Neuro: COMMON NORMALS: patient oriented x3, CN's II-XII intact bilaterally, moves all extremities, no focal motor deficits, no sensory deficits noted, deep tendon reflexes 2+ bilaterally and gait normal SENSORIUM/ORIENTATION: Yes alert, Yes oriented to person, Yes oriented to place and Yes oriented to time MENINGEAL SIGNS: Yes no meningeal signs CRANIAL NERVES: Yes CN normal except as noted SPEECH: speech normal GAIT: Yes Normal gait present SENSORY EXAM: Yes extremities MOTOR EXAM: 5/5 motor strength present throughout Psych: COMMON NORMALS: mental status grossly normal, Normal thought process present, cooperative, normal affect, speech normal, activity/motor behavior normal, denies hallucinations, denies homicidal ideation and denies suicidal ideation APPEARANCE: Yes grossly normal and Yes well kempt ATTITUDE: Yes calm ACTIVITY/MOTOR BEHAVIOR: Yes appropriate eye contact SPEECH: Yes normal speech THOUGHT PROCESS: Normal thought process present THOUGHT CONTENT: Yes Normal thought content present ATTENTION/CONCENTRATION: Yes attention grossly intact MEMORY/COGNITION: Yes memory grossly intact INSIGHT: Good insight present (Psych) JUDGEMENT: Good judgement present (Psych) Skin: COMMON NORMALS: no rashes or lesions noted, no wounds, turgor normal, no jaundice, no petechiae and no mottling GENERAL SKIN EXAM: no rashes or lesions noted and turgor normal Course Vital Signs: Vital signs: Vital Signs Temperature 97.9 F 01/25/20 10:40 Pulse Rate 91 01/25/20 10:48 Respiratory Rate 18 01/25/20 12:59 Blood Pressure 114/89 01/25/20 10:48 Pulse Oximetry 94 01/25/20 12:59 MDM - Chest Pain MDM Narrative: Medical decision making narrative: Pt is well appearing non toxic and in no acute distress. Pts EKG shows sinus vickey rate of [address] elevation or depression noted. Trop is negative this making cardiac ischemia unlikely. Pts pain is reproducible. 39 yo female patient presents to ER with left sided chest pain that started this am. Pt states she pulled an infected toother herself about 3 weeks ago and has had mouth pain and neck pain and now has gone into her chest. Pt denies any fever. Pt denies any SOB. Pt denies any abd pain n/v/d. Given patients physical exam findings, I did CT neck with contrast [facility] reveals Ordering Provider/Ordering MD: Aretha Rodríguez NP Date of Service: 01/25/20 Procedure(s): CT neck w con* [id number] Accession Number(s): [id number] Report Number: [id number] PROCEDURE INFORMATION: Exam: CT Neck With Contrast Exam date and time: 01/25/2020 11:11 AM Age: 39 years old Clinical indication: Neck pain; Additional info: Possible abscess TECHNIQUE: Imaging protocol: Computed tomography images of the neck with intravenous contrast. Radiation optimization: All CT scans at this facility use at least one of these dose optimization techniques: automated exposure control; mA and/or kV adjustment per patient size (includes targeted exams where dose is matched to clinical indication); or iterative reconstruction. Contrast material: OMNIPAQUE 300; Contrast volume: 75 ml; Contrast route: INTRAVENOUS (IV); COMPARISON: CT neck w con* [id number] 07/16/2014 4:22 PM RADIATION DOSE METRICS: Total DLP (mGy-cm): 664.47 FINDINGS: Paranasal sinuses: A cyst/polyp is present in the right maxillary sinus. Nasopharynx: Unremarkable. Dental: Left mandibular 1st molar 5 mm periapical abscess (series 602, image 39) with lateral cortical breakthrough (series 601, image 74). Oropharynx: Unremarkable. No significant tonsillar enlargement. Hypopharynx: Unremarkable. Larynx: Unremarkable. Normal epiglottis. Retropharyngeal space: Unremarkable. Submandibular/Parotid glands: Normal. Glands are normal in size. Thyroid: Normal. No enlarged or calcified nodules. Lymph nodes: 4.3 mm short axis lymph node superficial to the right parotid gland, stable. Right level 2 lymph node measuring 8.1 mm short axis, previously 7.2 mm. Left level 2 lymph node measuring 7.7 mm short axis, previously 9.1 mm. Right level 3 lymph node measuring 4.5 mm short axis, previously 3.5 mm. Trachea: Visualized trachea is unremarkable. Lungs: Unremarkable as visualized. Bones/joints: C5-6 degenerative disc disease with moderate spondylosis. Soft tissues: Mild paraseptal/centrilobular emphysema bilaterally. CT/CT neck w con* [id number] IMPRESSION: 1. Mild nonspecific lymphadenopathy. No soft tissue neck abscess identified. 2. Left mandibular 1st molar periapical abscess. 3. C5-6 spondylosis. Possible anterior cord impingement. Clinical correlation with the patient's specific symptomatology is recommended. 4. Pulmonary emphysema. Pt did not have any mastoid tenderness. There was no evidence of Ludwigs angina. There is no obvious observable abscess that I can see to attempt incision and drainage. I will place patient on antibiotics and have her follow up with [facility] for possible drainage of abscess Lab Data: Labs: Lab Results 01/25/20 01/25/20 01/25/20 Range/Units 10:55 10:55 10:55 WBC 7.6 (4.0-10.0) 10^3/ uL RBC 5.03 (4.1-5.3) 10^6/u L Hgb 15.4 H (11.5-15.3) g/dL Hct 46.5 (37.0-47.0) % MCV 92.4 (81-99) fL MCH 30.6 (28.0-34.0) pg MCHC 33.1 (30.0-36.0) g/dL RDW 12.8 (12.1-15.1) % Plt Count 317 (130-400) 10^3/c mm MPV 9.5 (7.4-10.4) fL Neut % (Auto) 48.4 % Lymph % (Auto) 41.5 % [place] % (Auto) 7.0 % Eos % (Auto) 2.1 % Baso % (Auto) 0.9 % Neut # (Auto) 3.65 (1.8-7.7) 10^3/u L Lymph # (Auto) 3.1 (0.8-4.8) 10^3/u L [place] # (Auto) 0.5 (0.2-0.9) 10^3/u L Eos # (Auto) 0.2 (0.0-0.8) 10^3/u L Baso # (Auto) 0.1 (0.0-0.1) 10^3/u L Nucleated RBC % (a uto) 0 % Nucleated RBCs # 0.0 /100WBC Sodium 140 (136-145) mmol/L Potassium 3.8 (3.5-5.1) mmol/L Chloride 103 (98-107) mmol/L Carbon Dioxide 27 (22-29) mmol/L Anion Gap 13.8 (5-19) BUN 9 (6-20) mg/dL Creatinine 0.6 (0.5-0.9) mg/dL GFR Calculation 110.2 (90-130) mL/min Glucose 85 (65-115) mg/dL Calculated Osmolal ity 288 (285-295) mOsm/k g Calcium 9.5 (8.5-10.5) mg/dL Total Bilirubin 0.3 (0.15-1.2) mg/dL AST 12 (0-32) U/L ALT 12 (0-33) U/L Alkaline Phosphata se 81 (35-105) IU/L Troponin T Baselin e 6 (0-10) ng/L Troponin T 120 Min [place] (0-10) ng/L Delta Troponin T (0-10) ABS# Total Protein 7.3 (6.6-8.7) g/dL Albumin 4.8 (3.5-5.2) g/dL Globulin 2.5 (1.3-4.6) g/dL Urine Color (Yellow) Urine Appearance (CLEAR) Urine pH (5-7) Ur Specific Gravit y (1.005-1.030) Urine Protein (Negative) Urine Glucose (UA) (Normal) Urine Ketones (Negative) Urine Blood (Negative) Urine Nitrate (Negative) Urine Bilirubin (Negative) Urine Urobilinogen (Negative) mg/dL Ur Leukocyte [place] a[place] (Negative) Urine Opiates Scre en (Negative) ng/mL Ur Barbiturates Sc reen (Negative) ng/mL Ur Phencyclidine S crn (Negative) ng/mL Ur Amphetamines Sc reen (Negative) ng/mL U Benzodiazepines Scrn (Negative) ng/mL Urine Cocaine Scre en (Negative) ng/mL U Marijuana (THC) Screen (Negative) ng/mL 01/25/20 01/25/20 01/25/20 Range/Units 12:10 12:37 13:00 WBC (4.0-10.0) 10^3/ uL RBC (4.1-5.3) 10^6/u L Hgb (11.5-15.3) g/dL Hct (37.0-47.0) % MCV (81-99) fL MCH (28.0-34.0) pg MCHC (30.0-36.0) g/dL RDW (12.1-15.1) % Plt Count (130-400) 10^3/c mm MPV (7.4-10.4) fL Neut % (Auto) % Lymph % (Auto) % [place] % (Auto) % Eos % (Auto) % Baso % (Auto) % Neut # (Auto) (1.8-7.7) 10^3/u L Lymph # (Auto) (0.8-4.8) 10^3/u L [place] # (Auto) (0.2-0.9) 10^3/u L Eos # (Auto) (0.0-0.8) 10^3/u L Baso # (Auto) (0.0-0.1) 10^3/u L Nucleated RBC % (a uto) % Nucleated RBCs # /100WBC Sodium (136-145) mmol/L Potassium (3.5-5.1) mmol/L Chloride (98-107) mmol/L Carbon Dioxide (22-29) mmol/L Anion Gap (5-19) BUN (6-20) mg/dL Creatinine (0.5-0.9) mg/dL GFR Calculation (90-130) mL/min Glucose (65-115) mg/dL Calculated Osmolal ity (285-295) mOsm/k g Calcium (8.5-10.5) mg/dL Total Bilirubin (0.15-1.2) mg/dL AST (0-32) U/L ALT (0-33) U/L Alkaline Phosphata se (35-105) IU/L Troponin T Baselin e (0-10) ng/L Troponin T 120 Min [place] 6.00 (0-10) ng/L Delta Troponin T 0 (0-10) ABS# Total Protein (6.6-8.7) g/dL Albumin (3.5-5.2) g/dL Globulin (1.3-4.6) g/dL Urine Color Straw (Yellow) Urine Appearance Clear (CLEAR) Urine pH 7 (5-7) Ur Specific Gravit y 1.010 (1.005-1.030) Urine Protein Neg (Negative) Urine Glucose (UA) Norm (Normal) Urine Ketones Negative (Negative) Urine Blood Neg (Negative) Urine Nitrate Negative (Negative) Urine Bilirubin Neg (Negative) Urine Urobilinogen Norm (Negative) mg/dL Ur Leukocyte [place] Negative (Negative) Urine Opiates Scre en Negative (Negative) ng/mL Ur Barbiturates Sc reen Negative (Negative) ng/mL Ur Phencyclidine S crn Negative (Negative) ng/mL Ur Amphetamines Sc reen Negative (Negative) ng/mL U Benzodiazepines Scrn Negative (Negative) ng/mL Urine Cocaine Scre en Negative (Negative) ng/mL U Marijuana (THC) Screen Positive H (Negative) ng/mL Discharge Plan Discharge Patient Disposition: Home Clinical Impression: Abscess Condition: Stable Prescriptions: New penicillin V potassium 500 mg tablet 500 mg PO Q8H 10 Days Qty: 30 RF: 0 No Action Trelegy Ellipta 100-62.5-25 mcg Blister With Device 1 inh INHALATION DAILY RF: 0 Discharge Orders: Discharge Order (Routine); Ordered 01/25/20 Ordered By: Aretha Rodríguez Discharge Diet: Advance as tolerated Discharge Activity: Resume usual activity Activity Restrictions/Additional Instructions: Please take antibiotics as prescribed Please follow up with [facility] - Fruit Canner will call you with referral Please follow home care instructions Please return to ER with any worsening of symtoms. Coding Level of Care Code ED [employer] Chemist for Cristobal Fwtyrone Exam Comprehensive
[2020-01-25 13:28] LABS: Add Urine Microscopic? NO; Bilirubin Urine Neg (Negative); Blood Urine Neg (Negative); Glucose Urine UA Norm (Normal); Ketones Urine Negative (Negative); Leukocyte Esterase Urine Negative (Negative); Nitrate Urine Negative (Negative); Protein Urine Neg (Negative); Urine Appearance Clear (CLEAR); Urine Color Straw (Yellow); Urobilinogen Urine Norm (Negative); pH Urine 7 (5-7)
[2020-01-25 13:30] LABS: Amphetamines Screen Urine Negative (Negative); Barbiturates Screen Urine Negative (Negative); Benzodiazepines Screen Urine Negative (Negative); Cocaine Screen Urine Negative (Negative); Opiate Screen Urine Negative (Negative); PCP Screen Urine Negative (Negative); THC Screen Urine Positive (Negative)
[2020-01-25 13:34] LABS: Troponin 5 2HR Delta 0 ABS# (0-10)
--- NOTE | 2020-01-25 14:34 | W.ED.CHESTPA ---
HPI - Chest Pain General: Chief Complaint: Chest Pain Stated Complaint: LEFT CHEST PAIN Time Seen by Provider: 01/25/20 10:41 Source: patient Mode of arrival: ambulatory Limitations: no limitations PFSH ED PFSH: Medical History (Updated 01/25/20 @ 14:14 by Aretha Rodríguez) Asthma Surgical History H/O tubal ligation Social History Smoking and tobacco status: current every day smoker Current gender identity: Female Female Reproductive History: Date of last menstrual period: 08/02/19 Course Vital Signs: Vital signs: Vital Signs Temperature 97.9 F 01/25/20 10:40 Pulse Rate 60 01/25/20 14:51 Respiratory Rate 20 H 01/25/20 14:51 Blood Pressure 101/69 01/25/20 14:51 Pulse Oximetry 97 01/25/20 14:51 MDM - Chest Pain Lab Data: Labs: Lab Results 01/25/20 01/25/20 01/25/20 Range/Units 10:55 10:55 10:55 WBC 7.6 (4.0-10.0) 10^3/ uL RBC 5.03 (4.1-5.3) 10^6/u L Hgb 15.4 H (11.5-15.3) g/dL Hct 46.5 (37.0-47.0) % MCV 92.4 (81-99) fL MCH 30.6 (28.0-34.0) pg MCHC 33.1 (30.0-36.0) g/dL RDW 12.8 (12.1-15.1) % Plt Count 317 (130-400) 10^3/c mm MPV 9.5 (7.4-10.4) fL Neut % (Auto) 48.4 % Lymph % (Auto) 41.5 % [place] % (Auto) 7.0 % Eos % (Auto) 2.1 % Baso % (Auto) 0.9 % Neut # (Auto) 3.65 (1.8-7.7) 10^3/u L Lymph # (Auto) 3.1 (0.8-4.8) 10^3/u L [place] # (Auto) 0.5 (0.2-0.9) 10^3/u L Eos # (Auto) 0.2 (0.0-0.8) 10^3/u L Baso # (Auto) 0.1 (0.0-0.1) 10^3/u L Nucleated RBC % (a uto) 0 % Nucleated RBCs # 0.0 /100WBC Sodium 140 (136-145) mmol/L Potassium 3.8 (3.5-5.1) mmol/L Chloride 103 (98-107) mmol/L Carbon Dioxide 27 (22-29) mmol/L Anion Gap 13.8 (5-19) BUN 9 (6-20) mg/dL Creatinine 0.6 (0.5-0.9) mg/dL GFR Calculation 110.2 (90-130) mL/min Glucose 85 (65-115) mg/dL Calculated Osmolal ity 288 (285-295) mOsm/k g Calcium 9.5 (8.5-10.5) mg/dL Total Bilirubin 0.3 (0.15-1.2) mg/dL AST 12 (0-32) U/L ALT 12 (0-33) U/L Alkaline Phosphata se 81 (35-105) IU/L Troponin T Baselin e 6 (0-10) ng/L Troponin T 120 Min [place] (0-10) ng/L Delta Troponin T (0-10) ABS# Total Protein 7.3 (6.6-8.7) g/dL Albumin 4.8 (3.5-5.2) g/dL Globulin 2.5 (1.3-4.6) g/dL Urine Color (Yellow) Urine Appearance (CLEAR) Urine pH (5-7) Ur Specific Gravit y (1.005-1.030) Urine Protein (Negative) Urine Glucose (UA) (Normal) Urine Ketones (Negative) Urine Blood (Negative) Urine Nitrate (Negative) Urine Bilirubin (Negative) Urine Urobilinogen (Negative) mg/dL Ur Leukocyte [place]ba ase (Negative) Urine Opiates Scre en (Negative) ng/mL Ur Barbiturates Sc reen (Negative) ng/mL Ur Phencyclidine S crn (Negative) ng/mL Ur Amphetamines Sc reen (Negative) ng/mL U Benzodiazepines Scrn (Negative) ng/mL Urine Cocaine Scre en (Negative) ng/mL U Marijuana (THC) Screen (Negative) ng/mL 01/25/20 01/25/20 01/25/20 Range/Units 12:10 12:37 13:00 WBC (4.0-10.0) 10^3/ uL RBC (4.1-5.3) 10^6/u L Hgb (11.5-15.3) g/dL Hct (37.0-47.0) % MCV (81-99) fL MCH (28.0-34.0) pg MCHC (30.0-36.0) g/dL RDW (12.1-15.1) % Plt Count (130-400) 10^3/c mm MPV (7.4-10.4) fL Neut % (Auto) % Lymph % (Auto) % [place] % (Auto) % Eos % (Auto) % Baso % (Auto) % Neut # (Auto) (1.8-7.7) 10^3/u L Lymph # (Auto) (0.8-4.8) 10^3/u L [place] # (Auto) (0.2-0.9) 10^3/u L Eos # (Auto) (0.0-0.8) 10^3/u L Baso # (Auto) (0.0-0.1) 10^3/u L Nucleated RBC % (a uto) % Nucleated RBCs # /100WBC Sodium (136-145) mmol/L Potassium (3.5-5.1) mmol/L Chloride (98-107) mmol/L Carbon Dioxide (22-29) mmol/L Anion Gap (5-19) BUN (6-20) mg/dL Creatinine (0.5-0.9) mg/dL GFR Calculation (90-130) mL/min Glucose (65-115) mg/dL Calculated Osmolal ity (285-295) mOsm/k g Calcium (8.5-10.5) mg/dL Total Bilirubin (0.15-1.2) mg/dL AST (0-32) U/L ALT (0-33) U/L Alkaline Phosphata se (35-105) IU/L Troponin T Baselin e (0-10) ng/L Troponin T 120 Min [place] 6.00 (0-10) ng/L Delta Troponin T 0 (0-10) ABS# Total Protein (6.6-8.7) g/dL Albumin (3.5-5.2) g/dL Globulin (1.3-4.6) g/dL Urine Color Straw (Yellow) Urine Appearance Clear (CLEAR) Urine pH 7 (5-7) Ur Specific Gravit y 1.010 (1.005-1.030) Urine Protein Neg (Negative) Urine Glucose (UA) Norm (Normal) Urine Ketones Negative (Negative) Urine Blood Neg (Negative) Urine Nitrate Negative (Negative) Urine Bilirubin Neg (Negative) Urine Urobilinogen Norm (Negative) mg/dL Ur Leukocyte [place] Negative (Negative) Urine Opiates Scre en Negative (Negative) ng/mL Ur Barbiturates Sc reen Negative (Negative) ng/mL Ur Phencyclidine S crn Negative (Negative) ng/mL Ur Amphetamines Sc reen Negative (Negative) ng/mL U Benzodiazepines Scrn Negative (Negative) ng/mL Urine Cocaine Scre en Negative (Negative) ng/mL U Marijuana (THC) Screen Positive H (Negative) ng/mL Discharge Plan Discharge Patient Disposition: Home Clinical Impression: Abscess Condition: Stable Prescriptions: New penicillin V potassium 500 mg tablet 500 mg PO Q8H 10 Days Qty: 30 RF: 0 No Action Trelegy Ellipta 100-62.5-25 mcg Blister With Device 1 inh INHALATION DAILY RF: 0 Discharge Orders: Discharge Order (Routine); Ordered 01/25/20 Ordered By: Aretha Rodríguez Discharge Diet: Advance as tolerated Discharge Activity: Resume usual activity Activity Restrictions/Additional Instructions: Please take antibiotics as prescribed Please follow up with [facility] - Sheet Metal Duct Worker Supervisor will call you with referral Please follow home care instructions Please return to ER with any worsening of symtoms. Coding Level of Care Code ED Charter Boat Operator for Cristobal Pickett
--- NOTE | 2020-01-26 14:14 | DCPLANNER ---
manager fire had message to schedule a follow up appointment for patient with [facility] for a dental abscess. manager fire called [facility] in [place], faxed patients information to the clinic. Clinic will call patient with appointment information.
--- NOTE | 2020-02-12 12:10 | DCPLANNER ---
cardroom manager called [facility] to confirm if a follow up appointment had been scheduled for patient. cardroom manager was told that the clinic did receive the referral, clinic has reached out to patient and left a message for patient to call clinic to schedule a follow up appointment. Patient has not called clinic to schedule a follow up appointment at this time.
== END 2020-01-25 14:45 | disposition home or self-care (01) ==
PROVIDERS: Emergency Medicine; Emergency Provider Registered Nurse
DX: K04.7 Periapical abscess without sinus (principal); F17.210 Nicotine dependence, cigarettes, uncomplicated
CPT/HCPCS: 12345; 70491; 71045; 80053; 80306; 81003; 84484; 85025; 93005; 96374; 96375; 99282; 99283; J2270; Q9967

== ENCOUNTER 2020-09-28 15:40 | Emergency (ER) | payer MEDICAID, SELFPAY ==
[2020-09-28 15:47] VITALS: BP 111/65; PULSE 90; RESP 18; TEMP 36.9; O2SAT 98; BMI 25.9
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
[2020-09-28] MEDS: HYDROcodone-acetaminophen 7.5-325 mg Tablet 1 TAB PO (16:12)
--- NOTE | 2020-09-28 16:58 | PC.NURSE ---
4 inch sona wrap applied to right forearm
[2020-09-28 16:59] VITALS: BP 113/74; PULSE 68; RESP 16; O2SAT 97
== END 2020-09-28 17:00 | disposition home or self-care (01) ==
PROVIDERS: Emergency Provider Physician Assistant
DX: S53.401A Unspecified sprain of right elbow, initial encounter (principal); S63.501A Unspecified sprain of right wrist, initial encounter; K08.89 Other specified disorders of teeth and supporting structures; F17.200 Nicotine dependence, unspecified, uncomplicated; X58.XXXA Exposure to other specified factors, initial encounter
CPT/HCPCS: 73080; 73110; 99283

== ENCOUNTER 2021-01-24 06:16 | Emergency (ER) | payer MEDICAID, SELFPAY ==
[2021-01-24 06:23] VITALS: BP 124/86; PULSE 89; RESP 16; TEMP 36.2; O2SAT 95; BMI 26.6
--- NOTE | 2021-01-24 07:13 | W.ED.DENTAL ---
Documented by User: MARCO Olivares 01/24/21 08:38 HPI - Dental/Oral General: Chief complaint: Dental/Oral Stated complaint: TOOTHACHE ON L SIDE Time Seen by Provider: 01/24/21 06:26 Source: patient Mode of arrival: ambulatory Limitations: no limitations History of Present Illness: HPI Narrative: Patient is a 40-year-old female who presents to ED today with two separate complaints. First of all she is complaining of left lower dental pain. She states she has had pain over the past week or so. No recent dental trauma. She reportedly has poor dentition. She states she has not seen a dentist in years. She is reporting some mild swelling to the left mandibular region. No trouble swallowing or controlling secretions. No fevers or neck pain. Patient also has a separate complaint of abdominal pain that is been present over the past 3 weeks. She states pain is intermittent. She is concerned because she has not had a menstrual cycle in 3 months. Concerned that maybe she is going through perimenopause. Patient is status post tubal ligation. She denies any urinary symptoms. Normal bowel habits. MD Complaint: tooth pain Context: history of dental caries Associated symptoms: Denies ear or mastoid pain, fever(s) or odynophagia Treatment prior to arrival: none Review of Systems Const: Denies: fever(s), chills, body aches, fatigue or malaise Eyes: Denies: change in vision ENMT: Reports: dental pain; Denies: throat pain, odynophagia, ear or mastoid pain, nasal discharge, nasal congestion or epistaxis Card: Denies: chest pain or palpitations Resp: Denies: dyspnea GI: Reports: abdominal pain; Denies: nausea, vomiting, diarrhea, change in bowel habits or change in stool character : Denies: flank pain or dysuria Musc: Denies: neck pain, back pain, extremity pain or joint pain Skin/Breast: Denies: rash Neuro: Denies: headache(s) or dizziness [facility] ED PFSH: Medical History (Updated 01/24/21 @ 08:12 by MARCO Olivares) Asthma Surgical History H/O tubal ligation Social History Smoking and tobacco status: current every day smoker Current gender identity: Female Female Reproductive History: Date of last menstrual period: 08/02/19 Physical Exam Const: COMMON NORMALS: no acute distress, patient oriented x3, no limitations and alert GENERAL APPEARANCE: cooperative ORIENTATION/CONSCIOUSNESS: Yes awake, Yes oriented to person, Yes oriented to place and Yes oriented to time HENMT: COMMON NORMALS: normocephalic and atraumatic HEAD & SCALP: normal to inspection, normocephalic and atraumatic TEETH & GINGIVA: Yes caries and Yes poor dentition THROAT: posterior oropharynx normal, tonsils normal and uvula midline Neck/C-Spine: COMMON NORMALS: full ROM, no lymphadenopathy and no meningeal signs Resp: COMMON NORMALS: normal respiratory effort and clear to auscultation bilaterally AUSCULTATION: clear to auscultation bilaterally Cardio: COMMON NORMALS: regular rate and regular rhythm RATE: regular rate RHYTHM: regular rhythm GI: COMMON NORMALS: Normal to inspection, nondistended, normoactive bowel sounds present, Soft to palpation, No hepatosplenomegaly present and no masses INSPECTION: Yes normal to inspection PALPATION: Yes Soft to palpation, Yes Tenderness to palpation present (GI) (mild tenderness to mid/lower abdomen; non-surgical exam) and Yes No hepatosplenomegaly present Extremity: COMMON NORMALS: normal to inspection Neuro: COMMON NORMALS: patient oriented x3 SENSORIUM/ORIENTATION: Yes alert, Yes oriented to person, Yes oriented to place and Yes oriented to time MENINGEAL SIGNS: Yes no meningeal signs Skin: COMMON NORMALS: no rashes or lesions noted GENERAL SKIN EXAM: no rashes or lesions noted Course Vital Signs: Vital signs: Vital Signs Temperature 97.1 F L 01/24/21 06:23 Pulse Rate 74 01/24/21 07:33 Respiratory Rate 14 01/24/21 07:33 Blood Pressure 109/79 01/24/21 07:33 Pulse Oximetry 98 01/24/21 07:33 MDM - Dental/Oral MDM Narrative: Medical decision making narrative: Patient here with complaints of dental pain and intermittent abdominal pains as well as amenorrhea for the past 3 months. She clinically appears no acute distress. Her vital signs are stable. Labs are unremarkable. UA contaminated with 15-25 squamous cells. She has no complaints of dysuria, urgency, or frequency. negative. We will go ahead and place on Keflex which should cover her dental infection as well as a possible UTI although I have a low suspicion for this. We will have case management speak to her about financial institution branch manager paperwork and getting her set up with the women's health appointment to further evaluate primary versus secondary causes for her amenorrhea. Return to ED precautions given. Lab Data: Labs: Lab Results 01/24/21 01/24/21 01/24/21 07:31 07:31 07:31 WBC 9.6 10^3/uL 10^3/ uL (4.0-10.0) RBC 5.29 10^6/uL 10^6 /uL (4.1-5.3) Hgb 16.3 g/dL H g/dL (11.5-15.3) Hct 48.8 % H % (37.0-47.0) MCV 92.2 fl fl (81-99) MCH 30.8 pg pg (28.0-34.0) MCHC 33.4 g/dL g/dL (30.0-36.0) RDW 12.9 % % (12.1-15.1) Plt Count 307 10^3/cmm 10^3 /cmm (130-400) MPV 9.6 fL fL (7.4-10.4) Neut % (Auto) 67.1 % % Lymph % (Auto) 26.6 % % Cameron % (Auto) 4.2 % % Eos % (Auto) 1.1 % % Baso % (Auto) 0.7 % % Neut # (Auto) 6.46 10^3/uL 10^3 /uL (1.8-7.7) Lymph # (Auto) 2.6 10^3/uL 10^3/ uL (0.8-4.8) Cameron # (Auto) 0.4 10^3/uL 10^3/ uL (0.2-0.9) Eos # (Auto) 0.1 10^3/uL 10^3/ uL (0.0-0.8) Baso # (Auto) 0.1 10^3/uL 10^3/ uL (0.0-0.1) Nucleated RBC % (a uto) 0 % % Nucleated RBCs # 0.0 /100WBC /100W BC Sodium 138 mmol/L mmol/L (136-145) Potassium 4.0 mmol/L mmol/L (3.5-5.1) Chloride 102 mmol/L mmol/L (98-107) Carbon Dioxide 26 mmol/L mmol/L (22-29) Anion Gap 14.0 (5-19) BUN 7 mg/dL mg/dL (6-20) Creatinine 0.6 mg/dL mg/dL (0.5-0.9) GFR Calculation 109.6 mL/min mL/m in (90-130) Glucose 92 mg/dL mg/dL (65-115) Calculated Osmolal ity 284 mOsm/kg L mOs m/kg (285-295) Calcium 8.9 mg/dL mg/dL (8.5-10.5) Total Bilirubin 0.3 mg/dL mg/dL (0.15-1.2) AST 12 U/L U/L (0-32) ALT 9 U/L U/L (0-33) Alkaline Phosphata se 90 IU/L IU/L (35-105) Total Protein 7.3 g/dL g/dL (6.6-8.7) Albumin 4.4 g/dL g/dL (3.5-5.2) Globulin 2.9 g/dL g/dL (1.3-4.6) HCG, Qual Negative (Negative) Urine Color Urine Appearance Urine pH Ur Specific Gravit y Urine Protein Urine Glucose (UA) Urine Ketones Urine Blood Urine Nitrate Urine Bilirubin Urine Urobilinogen Ur Leukocyte Elba ase Urine RBC Urine WBC Ur Squamous Epith Cells Amorphous Sediment Urine Bacteria 01/24/21 07:31 WBC RBC Hgb Hct MCV MCH MCHC RDW Plt Count MPV Neut % (Auto) Lymph % (Auto) Cameron % (Auto) Eos % (Auto) Baso % (Auto) Neut # (Auto) Lymph # (Auto) Cameron # (Auto) Eos # (Auto) Baso # (Auto) Nucleated RBC % (a uto) Nucleated RBCs # Sodium Potassium Chloride Carbon Dioxide Anion Gap BUN Creatinine GFR Calculation Glucose Calculated Osmolal ity Calcium Total Bilirubin AST ALT Alkaline Phosphata se Total Protein Albumin Globulin HCG, Qual Urine Color Yellow (Yellow) Urine Appearance Sl hazy (CLEAR) Urine pH 8 H (5-7) Ur Specific Gravit y 1.010 (1.005-1.030) Urine Protein Neg (Negative) Urine Glucose (UA) Norm (Normal) Urine Ketones Negative (Negative) Urine Blood Neg (Negative) Urine Nitrate Negative (Negative) Urine Bilirubin Neg (Negative) Urine Urobilinogen Norm mg/dL mg/dL (Negative) Ur Leukocyte Elba ase 2+ H (Negative) Urine RBC None /hpf /hpf (0-2) Urine WBC 5-10 /hpf H /hpf (0-5) Ur Squamous Epith Cells 15-25 /hpf H /hpf (0-5) Amorphous Sediment Not Reportable Urine Bacteria 1+ /hpf H /hpf (NONE) Discharge Plan Discharge Patient Disposition: Home Clinical Impression: Pain, dental, Amenorrhea Condition: Stable Prescriptions: New cephalexin 500 mg capsule 500 mg PO Q6H 7 Days Qty: 28 RF: 0 No Action Celebrex 100 mg capsule 100 mg PO BID PRN (Reason: pain) Qty: 20 RF: 0 Trelegy Ellipta 100-62.5-25 mcg Blister With Device 1 inh INHALATION DAILY RF: 0 Discharge Orders: Discharge ED (Routine); Ordered 01/24/21 Ordered By: Latoya Rangel Patient Instructions: Dental Caries (Cavities), Toothache (ED) Stand Alone Forms: Work/School Release Coding Level of Care Code ED Windshield Repair Technician for Chg Fwd Exam Comprehensive Documented by User: Desmond Fung DO 01/24/21 08:55 HPI - Dental/Oral General: Chief complaint: Dental/Oral Stated complaint: TOOTHACHE ON L SIDE Time Seen by Provider: 01/24/21 06:26 PFSH ED PFSH: Medical History (Updated 01/24/21 @ 08:12 by MARCO Olivares) Asthma Surgical History H/O tubal ligation Social History Smoking and tobacco status: current every day smoker Current gender identity: Female Course Vital Signs: Vital signs: Vital Signs Temperature 97.1 F L 01/24/21 06:23 Pulse Rate 74 01/24/21 07:33 Respiratory Rate 14 01/24/21 07:33 Blood Pressure 109/79 01/24/21 07:33 Pulse Oximetry 98 01/24/21 07:33 MDM - Dental/Oral MDM Narrative: Medical decision making narrative: Chart reviewed and patient discussed with midlevel. Agree with assessment and plan. Lab Data: Labs: Lab Results 01/24/21 01/24/21 01/24/21 07:31 07:31 07:31 WBC 9.6 10^3/uL 10^3/ uL (4.0-10.0) RBC 5.29 10^6/uL 10^6 /uL (4.1-5.3) Hgb 16.3 g/dL H g/dL (11.5-15.3) Hct 48.8 % H % (37.0-47.0) MCV 92.2 fl fl (81-99) MCH 30.8 pg pg (28.0-34.0) MCHC 33.4 g/dL g/dL (30.0-36.0) RDW 12.9 % % (12.1-15.1) Plt Count 307 10^3/cmm 10^3 /cmm (130-400) MPV 9.6 fL fL (7.4-10.4) Neut % (Auto) 67.1 % % Lymph % (Auto) 26.6 % % Cameron % (Auto) 4.2 % % Eos % (Auto) 1.1 % % Baso % (Auto) 0.7 % % Neut # (Auto) 6.46 10^3/uL 10^3 /uL (1.8-7.7) Lymph # (Auto) 2.6 10^3/uL 10^3/ uL (0.8-4.8) Cameron # (Auto) 0.4 10^3/uL 10^3/ uL (0.2-0.9) Eos # (Auto) 0.1 10^3/uL 10^3/ uL (0.0-0.8) Baso # (Auto) 0.1 10^3/uL 10^3/ uL (0.0-0.1) Nucleated RBC % (a uto) 0 % % Nucleated RBCs # 0.0 /100WBC /100W BC Sodium 138 mmol/L mmol/L (136-145) Potassium 4.0 mmol/L mmol/L (3.5-5.1) Chloride 102 mmol/L mmol/L (98-107) Carbon Dioxide 26 mmol/L mmol/L (22-29) Anion Gap 14.0 (5-19) BUN 7 mg/dL mg/dL (6-20) Creatinine 0.6 mg/dL mg/dL (0.5-0.9) GFR Calculation 109.6 mL/min mL/m in (90-130) Glucose 92 mg/dL mg/dL (65-115) Calculated Osmolal ity 284 mOsm/kg L mOs m/kg (285-295) Calcium 8.9 mg/dL mg/dL (8.5-10.5) Total Bilirubin 0.3 mg/dL mg/dL (0.15-1.2) AST 12 U/L U/L (0-32) ALT 9 U/L U/L (0-33) Alkaline Phosphata se 90 IU/L IU/L (35-105) Total Protein 7.3 g/dL g/dL (6.6-8.7) Albumin 4.4 g/dL g/dL (3.5-5.2) Globulin 2.9 g/dL g/dL (1.3-4.6) HCG, Qual Negative (Negative) Urine Color Urine Appearance Urine pH Ur Specific Gravit y Urine Protein Urine Glucose (UA) Urine Ketones Urine Blood Urine Nitrate Urine Bilirubin Urine Urobilinogen Ur Leukocyte Elba ase Urine RBC Urine WBC Ur Squamous Epith Cells Amorphous Sediment Urine Bacteria 01/24/21 07:31 WBC RBC Hgb Hct MCV MCH MCHC RDW Plt Count MPV Neut % (Auto) Lymph % (Auto) Cameron % (Auto) Eos % (Auto) Baso % (Auto) Neut # (Auto) Lymph # (Auto) Cameron # (Auto) Eos # (Auto) Baso # (Auto) Nucleated RBC % (a uto) Nucleated RBCs # Sodium Potassium Chloride Carbon Dioxide Anion Gap BUN Creatinine GFR Calculation Glucose Calculated Osmolal ity Calcium Total Bilirubin AST ALT Alkaline Phosphata se Total Protein Albumin Globulin HCG, Qual Urine Color Yellow (Yellow) Urine Appearance Sl hazy (CLEAR) Urine pH 8 H (5-7) Ur Specific Gravit y 1.010 (1.005-1.030) Urine Protein Neg (Negative) Urine Glucose (UA) Norm (Normal) Urine Ketones Negative (Negative) Urine Blood Neg (Negative) Urine Nitrate Negative (Negative) Urine Bilirubin Neg (Negative) Urine Urobilinogen Norm mg/dL mg/dL (Negative) Ur Leukocyte Elba ase 2+ H (Negative) Urine RBC None /hpf /hpf (0-2) Urine WBC 5-10 /hpf H /hpf (0-5) Ur Squamous Epith Cells 15-25 /hpf H /hpf (0-5) Amorphous Sediment Not Reportable Urine Bacteria 1+ /hpf H /hpf (NONE) Discharge Plan Discharge Patient Disposition: Home Clinical Impression: Pain, dental, Amenorrhea Condition: Stable Prescriptions: New cephalexin 500 mg capsule 500 mg PO Q6H 7 Days Qty: 28 RF: 0 No Action Celebrex 100 mg capsule 100 mg PO BID PRN (Reason: pain) Qty: 20 RF: 0 Trelegy Ellipta 100-62.5-25 mcg Blister With Device 1 inh INHALATION DAILY RF: 0 Discharge Orders: Discharge ED (Routine); Ordered 01/24/21 Ordered By: Latoya Rangel Patient Instructions: Dental Caries (Cavities), Toothache (ED) Stand Alone Forms: Work/School Release Coding Level of Care Code ED Windshield Repair Technician for Kirtg Fwd Exam Comprehensive
[2021-01-24 07:33] VITALS: BP 109/79; PULSE 74; RESP 14; O2SAT 98
[2021-01-24 07:50] LABS: Basophils # 0.1 10^3/uL (0.0-0.1); Basophils % 0.7 %; Eosinophils # 0.1 10^3/uL (0.0-0.8); Eosinophils % 1.1 %; Hematocrit 48.8 % (37.0-47.0); Hemoglobin 16.3 g/dL (11.5-15.3); Lymphocytes # 2.6 10^3/uL (0.8-4.8); Lymphocytes % 26.6 %; Mean Corpuscular HGB Conc 33.4 g/dL (30.0-36.0); Mean Corpuscular Hemoglobin 30.8 pg (28.0-34.0); Mean Corpuscular Volume 92.2 fl (81-99); Mean Platelet Volume 9.6 fL (7.4-10.4); Monocytes # 0.4 10^3/uL (0.2-0.9); Monocytes % 4.2 %; Neutrophils # 6.46 10^3/uL (1.8-7.7); Neutrophils % 67.1 %; Nucleated Red Blood Cells % 0 %; Platelet Count 307 10^3/cmm (130-400); Red Blood Count 5.29 10^6/uL (4.1-5.3); Red Cell Distribution Width 12.9 % (12.1-15.1); White Blood Count 9.6 10^3/uL (4.0-10.0)
[2021-01-24 08:00] LABS: Add Urine Culture? No; Add Urine Microscopic? YES; Bacteria Urine 1+ /hpf; Bilirubin Urine Neg (Negative); Blood Urine Neg (Negative); Glucose Urine UA Norm (Normal); Ketones Urine Negative (Negative); Leukocyte Esterase Urine 2+ (Negative); Nitrate Urine Negative (Negative); Protein Urine Neg (Negative); Squamous Epithelial Cell Urine 15-25 /hpf (0-5); Urine Appearance SL Hazy (CLEAR); Urine Color Yellow (Yellow); Urobilinogen Urine Norm (Negative); pH Urine 8 (5-7)
[2021-01-24 08:02] LABS: Alanine Aminotransferase 9 U/L (0-33); Albumin Level 4.4 g/dL (3.5-5.2); Aspartate Amino Transferase 12 U/L (0-32); Blood Urea Nitrogen 7 mg/dL (6-20); Calcium 8.9 mg/dL (8.5-10.5); Carbon Dioxide 26 mmol/L (22-29); Chloride 102 mmol/L (98-107); Glomerular Filtration Rate 109.6 mL/min (90-130); Glucose 92 mg/dL (65-115); Osmolality Calculated 284 mOsm/kg (285-295); Sodium 138 mmol/L (136-145); Total Bilirubin 0.3 mg/dL (0.15-1.2); Total Protein 7.3 g/dL (6.6-8.7)
[2021-01-24 08:03] LABS: Alkaline Phosphatase 90 IU/L (35-105); Globulin 2.9 g/dL (1.3-4.6)
[2021-01-24 08:05] LABS: HCG, Serum Qual Negative (Negative)
--- NOTE | 2021-01-24 11:57 | DCPLANNER ---
manager commercial had message to schedule a follow up appointment for patient with [facility]. manager commercial called the [facility], spoke with Elisha, gave clinic patients information. manager commercial was told that patients information would be printed and reviewed. Clinic will call patient with appointment information.
--- NOTE | 2021-02-24 13:43 | DCPLANNER ---
manager package called Renaldo at [facility] to confirm that an appointment had been scheduled for patient. manager package was told that clinic was unable to reach patient by phone to schedule an appointment. Clinic sent a letter to patient asking patient to call clinic to schedule a follow up appointment.
== END 2021-01-24 08:31 | disposition home or self-care (01) ==
PROVIDERS: Emergency Provider Physician Assistant
DX: K08.89 Other specified disorders of teeth and supporting structures (principal); N91.2 Amenorrhea, unspecified; F17.210 Nicotine dependence, cigarettes, uncomplicated
CPT/HCPCS: 80053; 81001; 84703; 85025; 99281

== ENCOUNTER 2021-06-01 05:51 | Emergency (ER) | payer BC, MEDICAID, SELFPAY ==
[2021-06-01 05:59] VITALS: BP 125/88; PULSE 76; RESP 16; TEMP 36.7; O2SAT 99; BMI 26.8
--- NOTE | 2021-06-01 06:07 | W.ED.FEMALGU ---
HPI - Female Genitourinary General: Chief complaint: Urogenital-Female Stated complaint: UTI, toothpain Time Seen by Provider: 06/01/21 06:06 Source: patient Mode of arrival: ambulatory Limitations: no limitations History of Present Illness: 40-year-old female who presents to the emergency room with complaint of dysuria urgency and frequency for the last several days she took a home UA test which tested positive for cystitis. Additionally she has a tender painful left mandibular first molar. Is not had any drainage she has significant dental caries. She denies a fever sweats or chills she does have a little bit of left flank pain. No vomiting or diarrhea. MD elicited complaint: dysuria, UTI and other (Dental carry) Onset (ago): day(s) Location of symptoms: flank (Left) Severity: mild Female Urogenital Radiation: L Flank Quality of pain: cramping Consistency: intermittent Vaginal discharge: none Vaginal bleeding: none Urinary symptoms: Dysuria, Flank Pain, Frequency and Urgency Exacerbating factors: urination Relieving factors: none Associated symptoms: Deny abdominal pain, short of breath, fevers/chills, headache(s), nausea, rash, seizures, syncope, vaginal bleeding, vaginal discharge or weakness Treatment prior to arrival: OTC urinary analgesics Possible : postmenopausal Date of Last Menstrual Period: 08/02/19 Review of Systems Const: Denies: fever(s), chills, body aches, change in appetite, fatigue or malaise ENMT: Reports: dental pain; Denies: throat pain, ear or mastoid pain, nasal discharge or nasal congestion Card: Denies: syncope Resp: Denies: dyspnea, productive cough or non-productive cough GI: Denies: abdominal pain or nausea : Reports: flank pain, difficulty voiding, dysuria, urinary frequency and urinary urgency; Denies: vaginal discharge Skin/Breast: Denies: rash or pruritus Neuro: Denies: headache(s) PFSH ED PFSH: Medical History Asthma Surgical History H/O tubal ligation Social History Smoking and tobacco status: current every day smoker Current gender identity: Female Female Reproductive History: Date of last menstrual period: 08/02/19 Physical Exam Const: COMMON NORMALS: no acute distress GENERAL APPEARANCE: cooperative and comfortable ORIENTATION/CONSCIOUSNESS: Yes awake, Yes oriented to person, Yes oriented to place and Yes oriented to time HENMT: COMMON NORMALS: normocephalic, atraumatic and hearing grossly normal bilaterally HEAD & SCALP: normocephalic and atraumatic MOUTH: Normal oral and palatal mucosa present and tongue normal TEETH & GINGIVA: Yes abnormal tooth and associated gingiva lower left first molar tender, with associated gingival edema and other (Dental carry) and Yes poor dentition Neck/C-Spine: COMMON NORMALS: no JVD Resp: COMMON NORMALS: normal respiratory effort, No retractions, No use of accessory muscles and clear to auscultation bilaterally AUSCULTATION: clear to auscultation bilaterally Cardio: COMMON NORMALS: no JVD, regular rate, regular rhythm and No murmurs present (Cardio) RATE: regular rate RHYTHM: regular rhythm GI: COMMON NORMALS: Soft to palpation and No hepatosplenomegaly present AUSCULTATION: Yes normoactive bowel sounds PALPATION: Yes Soft to palpation, No Tenderness to palpation present (GI), No Guarding due to palpation present (GI) and Yes No hepatosplenomegaly present : SPECULUM EXAM - VAGINA: No vaginal bleeding OB/EXTERNAL & SPECULUM: No vaginal bleeding Extremity: COMMON NORMALS: normal to inspection, capillary refill normal, no clubbing, cyanosis or edema, no calf tenderness and no pedal edema Neuro: SENSORIUM/ORIENTATION: Yes oriented to person, Yes oriented to place and Yes oriented to time Skin: COMMON NORMALS: no rashes or lesions noted GENERAL SKIN EXAM: no rashes or lesions noted Course Vital Signs: Vital signs: Vital Signs Temperature 98.1 F 06/01/21 05:59 Pulse Rate 76 06/01/21 05:59 Respiratory Rate 16 06/01/21 05:59 Blood Pressure 125/88 06/01/21 05:59 Pulse Oximetry 99 06/01/21 05:59 MDM - Female Medical Decision Making Based on her symptoms and UA we will go and start on Augmentin that should cover the cystitis as well as her dental carry. Encourage her to follow-up with her dentist as soon as she is able. Medical Records I reviewed the patient's medical records. Lab Data I reviewed the patient's lab results. : 06/01/21 06:45 06/01/21 06:45 Laboratory Results WBC 8.4 10^3/uL (4.0-10.0) 06/01/21 06:45 RBC 4.63 10^6/uL (4.1-5.3) 06/01/21 06:45 Hgb 14.2 g/dL (11.5-15.3) 06/01/21 06:45 Hct 42.9 % (37.0-47.0) 06/01/21 06:45 MCV 92.7 fl (81-99) 06/01/21 06:45 MCH 30.7 pg (28.0-34.0) 06/01/21 06:45 MCHC 33.1 g/dL (30.0-36.0) 06/01/21 06:45 RDW 13.2 % (12.1-15.1) 06/01/21 06:45 Plt Count 306 10^3/cmm (130-400) 06/01/21 06:45 MPV 9.2 fL (7.4-10.4) 06/01/21 06:45 Neut % (Auto) 48.7 % 06/01/21 06:45 Lymph % (Auto) 40.5 % 06/01/21 06:45 [place] % (Auto) 6.5 % 06/01/21 06:45 Eos % (Auto) 3.0 % 06/01/21 06:45 Baso % (Auto) 1.1 % 06/01/21 06:45 Neut # (Auto) 4.10 10^3/uL (1.8-7.7) 06/01/21 06:45 Lymph # (Auto) 3.4 10^3/uL (0.8-4.8) 06/01/21 06:45 [place] # (Auto) 0.6 10^3/uL (0.2-0.9) 06/01/21 06:45 Eos # (Auto) 0.3 10^3/uL (0.0-0.8) 06/01/21 06:45 Baso # (Auto) 0.1 10^3/uL (0.0-0.1) 06/01/21 06:45 Nucleated RBC % (auto) 0 % 06/01/21 06:45 Nucleated RBCs # 0.0 /100WBC 06/01/21 06:45 Sodium 137 mmol/L (136-145) 06/01/21 06:45 Potassium 4.0 mmol/L (3.5-5.1) 06/01/21 06:45 Chloride 104 mmol/L (98-107) 06/01/21 06:45 Carbon Dioxide 24 mmol/L (22-29) 06/01/21 06:45 Anion Gap 13.0 (5-19) 06/01/21 06:45 BUN 8 mg/dL (6-20) 06/01/21 06:45 Creatinine 0.5 mg/dL (0.5-0.9) 06/01/21 06:45 GFR Calculation 135.3 mL/min (90-130) H 06/01/21 06:45 Glucose 95 mg/dL (65-115) 06/01/21 06:45 Calculated Osmolality 282 mOsm/kg (285-295) L 06/01/21 06:45 Calcium 8.9 mg/dL (8.5-10.5) 06/01/21 06:45 Total Bilirubin 0.2 mg/dL (0.15-1.2) 06/01/21 06:45 AST 9 U/L (0-32) 06/01/21 06:45 ALT 8 U/L (0-33) 06/01/21 06:45 Alkaline Phosphatase 83 IU/L (35-105) 06/01/21 06:45 Total Protein 6.7 g/dL (6.6-8.7) 06/01/21 06:45 Albumin 3.8 g/dL (3.5-5.2) 06/01/21 06:45 Globulin 2.9 g/dL (1.3-4.6) 06/01/21 06:45 Urine Color Yellow (Yellow) 06/01/21 06:05 Urine Appearance Cloudy (CLEAR) 06/01/21 06:05 Urine pH 5 (5-7) 06/01/21 06:05 Ur Specific [place] 1.025 (1.005-1.030) 06/01/21 06:05 Urine Protein Neg (Negative) 06/01/21 06:05 Urine Glucose (UA) Norm (Normal) 06/01/21 06:05 Urine Ketones 1+ (Negative) H 06/01/21 06:05 Urine Blood Neg (Negative) 06/01/21 06:05 Urine Nitrate Negative (Negative) 06/01/21 06:05 Urine Bilirubin Neg (Negative) 06/01/21 06:05 Urine Urobilinogen Norm mg/dL (Negative) 06/01/21 06:05 Ur Leukocyte Esterase 2+ (Negative) H 06/01/21 06:05 Urine RBC None /hpf (0-2) 06/01/21 06:05 Urine WBC 10-15 /hpf (0-5) H 06/01/21 06:05 Ur Squamous Epith Cells 40-55 /hpf (0-5) H 06/01/21 06:05 Calcium Oxalate Crystal 15-25 /hpf H 06/01/21 06:05 Amorphous Sediment Not Reportable 06/01/21 06:05 Urine Bacteria 2+ /hpf (NONE) H 06/01/21 06:05 Urine Mucus 1+ /hpf 06/01/21 06:05 Urine Trichomonas 2+ /hpf H 06/01/21 06:05 Discharge Plan Discharge Patient Disposition: Home Clinical Impression: Urinary tract infection, Dental caries Condition: Stable Prescriptions: New Augmentin 875-125 mg tablet 1 tab PO BID Qty: 20 0RF No Action Celebrex 100 mg capsule 100 mg PO BID PRN (Reason: pain) Qty: 20 0RF Trelegy Ellipta 100-62.5-25 mcg Blister With Device 1 inh INHALATION DAILY 0RF Discharge Orders: Discharge ED (Routine); Ordered 06/01/21 Ordered By: Desmond Fung Discharge Diet: Usual diet Discharge Activity: Resume usual activity Patient Instructions: Opioid Safety Activity Restrictions/Additional Instructions: Follow-up with a dentist as soon as you are able. Stand Alone Forms: Work/School Release Coding Level of Care Code ED Psychology Intern for Cristobal Pickett
[2021-06-01 06:57] LABS: Add Urine Microscopic? YES; Bilirubin Urine Neg (Negative); Blood Urine Neg (Negative); Glucose Urine UA Norm (Normal); Ketones Urine 1+ (Negative); Leukocyte Esterase Urine 2+ (Negative); Nitrate Urine Negative (Negative); Protein Urine Neg (Negative); Specific Gravity, Urine 1.025 (1.005-1.030); Urine Appearance Cloudy (CLEAR); Urine Color Yellow (Yellow); Urobilinogen Urine Norm (Negative); pH Urine 5 (5-7)
[2021-06-01 06:57] LABS: Basophils # 0.1 10^3/uL (0.0-0.1); Basophils % 1.1 %; Eosinophils # 0.3 10^3/uL (0.0-0.8); Hematocrit 42.9 % (37.0-47.0); Hemoglobin 14.2 g/dL (11.5-15.3); Lymphocytes # 3.4 10^3/uL (0.8-4.8); Lymphocytes % 40.5 %; Mean Corpuscular HGB Conc 33.1 g/dL (30.0-36.0); Mean Corpuscular Hemoglobin 30.7 pg (28.0-34.0); Mean Corpuscular Volume 92.7 fl (81-99); Mean Platelet Volume 9.2 fL (7.4-10.4); Monocytes # 0.6 10^3/uL (0.2-0.9); Monocytes % 6.5 %; Neutrophils % 48.7 %; Nucleated Red Blood Cells % 0 %; Platelet Count 306 10^3/cmm (130-400); Red Blood Count 4.63 10^6/uL (4.1-5.3); Red Cell Distribution Width 13.2 % (12.1-15.1); White Blood Count 8.4 10^3/uL (4.0-10.0)
[2021-06-01 07:17] LABS: Alanine Aminotransferase 8 U/L (0-33); Albumin Level 3.8 g/dL (3.5-5.2); Alkaline Phosphatase 83 IU/L (35-105); Aspartate Amino Transferase 9 U/L (0-32); Blood Urea Nitrogen 8 mg/dL (6-20); Calcium 8.9 mg/dL (8.5-10.5); Carbon Dioxide 24 mmol/L (22-29); Chloride 104 mmol/L (98-107); Creatinine Clr Calc Pharmacy 146.7265; Globulin 2.9 g/dL (1.3-4.6); Glomerular Filtration Rate 135.3 mL/min (90-130); Glucose 95 mg/dL (65-115); Osmolality Calculated 282 mOsm/kg (285-295); Sodium 137 mmol/L (136-145); Total Bilirubin 0.2 mg/dL (0.15-1.2); Total Protein 6.7 g/dL (6.6-8.7)
[2021-06-01 07:34] LABS: Bacteria Urine 2+ /hpf; Calcium Oxalate Crystals Urine 15-25 /hpf; Mucus Urine 1+ /hpf; Squamous Epithelial Cell Urine 40-55 /hpf (0-5)
[2021-06-01 07:35] LABS: Add Urine Culture? No; Trichomonas Urine 2+ /hpf
== END 2021-06-01 07:58 | disposition home or self-care (01) ==
PROVIDERS: Emergency Provider Family Medicine
DX: N39.0 Urinary tract infection, site not specified (principal); K02.9 Dental caries, unspecified; F17.210 Nicotine dependence, cigarettes, uncomplicated
CPT/HCPCS: 80053; 81001; 85025; 99282

== ENCOUNTER 2021-10-07 20:14 | Emergency (ER) | payer BC, MEDICAID, SELFPAY ==
[2021-10-07 20:41] VITALS: BP 126/85; PULSE 65; RESP 18; TEMP 36.6; O2SAT 98; BMI 24.9
--- NOTE | 2021-10-07 22:10 | ED_ITS ---
HPI - General Adult General: Chief complaint: General Medical Stated complaint: numbness in bilateral legs and arms Time Seen by Provider: 10/07/21 21:28 Source: patient Mode of arrival: ambulatory Limitations: no limitations History of Present Illness: Patient is a 40-year-old female who presents to ED today with multiple medical complaints. First of all she is complaining of bilateral intermittent hand paresthesias x weeks. She does admit these seem to be worse at night when her hands are bent . 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 She also has a complaint of muscle cramps mainly affecting her bilateral lower extremities but will sometimes affect muscles in her arms. She again attributes this to factory work and possibly being dehydrated. Patient has a complaint of amenorrhea over the past 12 months. She states she has been evaluated by women's health for this and told she was going through menopause . She is not sure when her mother entered menopause. She is having some intermittent pelvic pains that have been present for several months. She does not believe she has had any form of evaluation for these discomforts or any form of imaging. No vaginal lesions, discharge, or odor. Onset (ago): week(s) (various chronicity based on complaint) Associated symptoms: Deny chest pain, dyspnea, headache(s), malaise, nausea, rash, palpitations, syncope or vomiting Review of Systems Const: Denies: fever(s), chills, body aches, fatigue or malaise Eyes: Denies: change in vision or blurry vision Card: Denies: chest pain, palpitations, irregular heart rhythm, edema, lightheadedness, syncope, pre-syncope or dyspnea on exertion Resp: Denies: dyspnea, productive cough or pain on inspiration GI: Denies: abdominal pain, nausea, vomiting, heartburn or diarrhea : Reports: amenorrhea (x 12 months) and pelvic pain; Denies: flank pain, difficulty voiding, dysuria, urinary frequency, genital lesions, vaginal odor, vaginal bleeding or vaginal discharge Musc: Reports: muscle cramps; Denies: neck pain, back pain, extremity pain, extremity swelling, joint pain, joint swelling, joint redness or joint warmth Skin/Breast: Denies: rash Neuro: Reports: numbness in extremities (bilateral hands); Denies: headache(s), lack of coordination, difficulty walking or dizziness [facility] ED PFSH: Medical History Asthma Surgical History H/O tubal ligation Social History Smoking and tobacco status: current every day smoker Current gender identity: Female Female Reproductive History: Date of last menstrual period: 08/02/19 Physical Exam Const: COMMON NORMALS: no acute distress, patient oriented x3, no limitations, alert and well nourished ORIENTATION/CONSCIOUSNESS: Yes awake, Yes oriented to person, Yes oriented to place and Yes oriented to time HENMT: COMMON NORMALS: normocephalic and atraumatic HEAD & SCALP: normal to inspection, normocephalic and atraumatic FACE & SINUS: normal facial exam Neck/C-Spine: COMMON NORMALS: full ROM, no lymphadenopathy and no meningeal signs Resp: COMMON NORMALS: normal respiratory effort and clear to auscultation bilaterally AUSCULTATION: clear to auscultation bilaterally Cardio: COMMON NORMALS: regular rate and regular rhythm RATE: regular rate RHYTHM: regular rhythm GI: COMMON NORMALS: Normal to inspection, nondistended, normoactive bowel sounds present, Soft to palpation, No hepatosplenomegaly present and no masses INSPECTION: Yes normal to inspection AUSCULTATION: Yes normoactive bowel sounds PALPATION: Yes Soft to palpation, Yes Tenderness to palpation present (GI) (mild; lower pelvis), No Guarding due to palpation present (GI), No Rigid due to palpation and Yes No hepatosplenomegaly present : COMMON NORMALS: Yes no CVA tenderness BLADDER/KIDNEY EXAM: Yes no CVA tenderness Back/Pelvis: COMMON NORMALS: no CVA tenderness, thoracic and lumbar spine normal to inspection, no thoracic nor lumbar tenderness and thoraco-lumbar ROM normal Extremity: COMMON NORMALS: normal to inspection, full ROM, capillary refill normal, no joint enlargement, no clubbing, cyanosis or edema and no pedal edema GENERAL: Yes normal exam except as noted RIGHT UPPER EXTREMITY: Yes hand & digits LEFT UPPER EXTREMITY: Yes hand & digits OTHER: bilateral UE extremity exam benign apart from positive Phalen's testing; she had negative Tinel's; no swelling, color/temp changes noted; strength 5/5 bilaterally Neuro: ULICES COMA SCALE: document [facility] findings [place] coma scale eye opening: Spontaneous [place] coma scale verbal response: Orientated [place] coma scale motor response: Obey commands [place] coma scale total score: 15 COMMON NORMALS: patient oriented x3, moves all extremities, no focal motor deficits, no sensory deficits noted and gait normal SENSORIUM/ORIENTATION: Yes alert, Yes oriented to person, Yes oriented to place and Yes oriented to time MENINGEAL SIGNS: Yes no meningeal signs Skin: COMMON NORMALS: no rashes or lesions noted GENERAL SKIN EXAM: no rashes or lesions noted Course Vital Signs: Vital signs: Vital Signs Temperature 97.9 F 10/07/21 20:41 Pulse Rate 55 L 10/07/21 23:54 Respiratory Rate 17 10/07/21 23:54 Blood Pressure 108/71 10/07/21 23:54 Pulse Oximetry 97 10/07/21 23:54 Oxygen Delivery Me thod 10/07/21 20:41 MDM - General Adult Medical Decision Making Patient here for multiple medical complaints. The paresthesias to her hands certainly sound like this could be related to some carpal tunnel. She does have a positive Phalen's test here. She states symptoms seem to be worse at night when her hands are bent . Patient's lab work is benign. I do not have any explanation regarding her muscle cramps. Discussed hydration if she is going to be working long hours in a factory. We also discussed possible magnesium supplementation to help with cramps. She can follow-up with PCP in regards to this. Patient states she is now went 12 months without a period she technically is menopausal. She did complain of some hot and cold flashes. She is also having some intermittent lower pelvic pains. These do not seem to be acute in nature and I think she could follow-up with PCP regarding this. They can follow-up with women's health if they felt necessary. I told her at some point I would like her to have a pelvic ultrasound for further evaluation of her pain. Patient agrees to this plan. She is stable from an ED standpoint. Return to ED precautions given. Lab Data : 10/07/21 22:20 10/07/21 22:50 Laboratory Results WBC 9.8 10^3/uL (4.0-10.0) 10/07/21 22:20 RBC 4.67 10^6/uL (4.1-5.3) 10/07/21 22:20 Hgb 14.7 g/dL (11.5-15.3) 10/07/21 22:20 Hct 43.7 % (37.0-47.0) 10/07/21 22:20 MCV 93.6 fl (81-99) 10/07/21 22:20 MCH 31.5 pg (28.0-34.0) 10/07/21 22:20 MCHC 33.6 g/dL (30.0-36.0) 10/07/21 22:20 RDW 14.8 % (12.1-15.1) 10/07/21 22:20 Plt Count 304 10^3/cmm (130-400) 10/07/21 22:20 MPV 9.9 fL (7.4-10.4) 10/07/21 22:20 Neut % (Auto) 43.7 % 10/07/21 22:20 Lymph % (Auto) 45.5 % 10/07/21 22:20 [place] % (Auto) 6.9 % 10/07/21 22:20 Eos % (Auto) 2.7 % 10/07/21 22:20 Baso % (Auto) 1.1 % 10/07/21 22:20 Neut # (Auto) 4.27 10^3/uL (1.8-7.7) 10/07/21 22:20 Lymph # (Auto) 4.4 10^3/uL (0.8-4.8) 10/07/21 22:20 [place] # (Auto) 0.7 10^3/uL (0.2-0.9) 10/07/21 22:20 Eos # (Auto) 0.3 10^3/uL (0.0-0.8) 10/07/21 22:20 Baso # (Auto) 0.1 10^3/uL (0.0-0.1) 10/07/21 22:20 Nucleated RBC % (auto) 0 % 10/07/21 22:20 Nucleated RBCs # 0.0 /100WBC 10/07/21 22:20 Sodium 138 mmol/L (136-145) 10/07/21 22:50 Potassium 3.8 mmol/L (3.5-5.1) 10/07/21 22:50 Chloride 103 mmol/L (98-107) 10/07/21 22:50 Carbon Dioxide 25 mmol/L (22-29) 10/07/21 22:50 Anion Gap 13.8 (5-19) 10/07/21 22:50 BUN 8 mg/dL (6-20) 10/07/21 22:50 Creatinine 0.5 mg/dL (0.5-0.9) 10/07/21 22:50 GFR Calculation 135.3 mL/min (90-130) H 10/07/21 22:50 Glucose 100 mg/dL (65-115) 10/07/21 22:50 Calculated Osmolality 284 mOsm/kg (285-295) L 10/07/21 22:50 Calcium 9.1 mg/dL (8.5-10.5) 10/07/21 22:50 Total Bilirubin 0.3 mg/dL (0.15-1.2) 10/07/21 22:50 AST 10 U/L (0-32) 10/07/21 22:50 ALT 9 U/L (0-33) 10/07/21 22:50 Alkaline Phosphatase 83 IU/L (35-105) 10/07/21 22:50 Total Protein 6.7 g/dL (6.6-8.7) 10/07/21 22:50 Albumin 4.1 g/dL (3.5-5.2) 10/07/21 22:50 Globulin 2.6 g/dL (1.3-4.6) 10/07/21 22:50 TSH 2.88 uIU/mL (0.27-4.20) 10/07/21 22:50 HCG, Qual Negative (Negative) 10/07/21 22:50 Urine Color Yellow (Yellow) 10/07/21 22:20 Urine Appearance Clear (CLEAR) 10/07/21 22:20 Urine pH 7 (5-7) 10/07/21 22:20 Ur Specific [place] 1.010 (1.005-1.030) 10/07/21 22:20 Urine Protein Neg (Negative) 10/07/21 22:20 Urine Glucose (UA) Norm (Normal) 10/07/21 22:20 Urine Ketones Negative (Negative) 10/07/21 22:20 Urine Blood Neg (Negative) 10/07/21 22:20 Urine Nitrate Negative (Negative) 10/07/21 22:20 Urine Bilirubin Neg (Negative) 10/07/21 22:20 Urine Urobilinogen Neg mg/dL (Negative) 10/07/21 22:20 Ur Leukocyte Esterase Negative (Negative) 10/07/21 22:20 Discharge Plan Discharge Patient Disposition: Home Clinical Impression: Menopause, Muscle cramps, Paresthesia of both hands Condition: Stable Prescriptions: No Action Celebrex 100 mg capsule 100 mg PO BID PRN (Reason: pain) Qty: 20 0RF Trelegy Ellipta 100-62.5-25 mcg Blister With Device 1 inh INHALATION DAILY Augmentin 875-125 mg tablet 1 tab PO BID Qty: 20 0RF Discharge Orders: Discharge ED (Routine); Ordered 10/07/21 Ordered By: Latoya Rangel Coding Level of Care Code ED Editor Publications for Chg Fwd Exam Comprehensive
[2021-10-07 22:30] LABS: Basophils # 0.1 10^3/uL (0.0-0.1); Basophils % 1.1 %; Eosinophils # 0.3 10^3/uL (0.0-0.8); Eosinophils % 2.7 %; Hematocrit 43.7 % (37.0-47.0); Hemoglobin 14.7 g/dL (11.5-15.3); Lymphocytes # 4.4 10^3/uL (0.8-4.8); Lymphocytes % 45.5 %; Mean Corpuscular HGB Conc 33.6 g/dL (30.0-36.0); Mean Corpuscular Hemoglobin 31.5 pg (28.0-34.0); Mean Corpuscular Volume 93.6 fl (81-99); Mean Platelet Volume 9.9 fL (7.4-10.4); Monocytes # 0.7 10^3/uL (0.2-0.9); Monocytes % 6.9 %; Neutrophils # 4.27 10^3/uL (1.8-7.7); Neutrophils % 43.7 %; Nucleated Red Blood Cells % 0 %; Platelet Count 304 10^3/cmm (130-400); Red Blood Count 4.67 10^6/uL (4.1-5.3); Red Cell Distribution Width 14.8 % (12.1-15.1); White Blood Count 9.8 10^3/uL (4.0-10.0)
[2021-10-07 22:44] LABS: Add Urine Microscopic? NO; Charge for UA Resulting for Rev
[2021-10-07 22:54] LABS: Bilirubin Urine Neg (Negative); Blood Urine Neg (Negative); Glucose Urine UA Norm (Normal); Ketones Urine Negative (Negative); Leukocyte Esterase Urine Negative (Negative); Nitrate Urine Negative (Negative); Protein Urine Neg (Negative); Urine Appearance Clear (CLEAR); Urine Color Yellow (Yellow); Urobilinogen Urine Neg (Negative); pH Urine 7 (5-7)
[2021-10-07 23:15] LABS: HCG, Serum Qual Negative (Negative)
[2021-10-07 23:30] LABS: Alanine Aminotransferase 9 U/L (0-33); Albumin Level 4.1 g/dL (3.5-5.2); Alkaline Phosphatase 83 IU/L (35-105); Anion Gap 13.8 (5-19); Aspartate Amino Transferase 10 U/L (0-32); Blood Urea Nitrogen 8 mg/dL (6-20); Calcium 9.1 mg/dL (8.5-10.5); Carbon Dioxide 25 mmol/L (22-29); Chloride 103 mmol/L (98-107); Globulin 2.6 g/dL (1.3-4.6); Glomerular Filtration Rate 135.3 mL/min (90-130); Glucose 100 mg/dL (65-115); Osmolality Calculated 284 mOsm/kg (285-295); Potassium 3.8 mmol/L (3.5-5.1); Sodium 138 mmol/L (136-145); Thyroid Stimulating Hormone 2.88 uIU/mL (0.27-4.20); Total Bilirubin 0.3 mg/dL (0.15-1.2); Total Protein 6.7 g/dL (6.6-8.7)
[2021-10-07 23:54] VITALS: BP 108/71; PULSE 55; RESP 17; O2SAT 97
--- NOTE | 2021-10-11 10:49 | DCPLANNER ---
assistant property manager had message to speak with patient about getting established with a primary care physician. assistant property manager called the two numbers that case management coordinator had [phone] and [phone] - unable to speak with patient and unable to leave a voicemail due to phone no longer being in service.
== END 2021-10-07 23:55 | disposition home or self-care (01) ==
PROVIDERS: Emergency Provider Physician Assistant
DX: R20.2 Paresthesia of skin (principal); R25.2 Cramp and spasm; Z78.0 Asymptomatic menopausal state; F17.210 Nicotine dependence, cigarettes, uncomplicated
CPT/HCPCS: 80053; 81003; 84443; 84703; 85025; 99283

== ENCOUNTER 2021-10-19 06:43 | Emergency (ER) | payer OTHER, BC, MEDICAID, SELFPAY ==
[2021-10-19 07:00] VITALS: BP 98/69; PULSE 76; RESP 14; TEMP 36.8; O2SAT 97; BMI 25.0
--- NOTE | 2021-10-19 07:11 | PC.NURSE ---
6 days ago pt fell about 5 ft landing on her back, she thought it would get better but it has gotten worse, she lifts alot at work and says everytime she bends over to lift something it hurts, any movement of her back makes it hurt worse, rates pain at 9 now
--- NOTE | 2021-10-19 07:18 | XRR_ITS ---
PROCEDURE INFORMATION: Exam: XR Lumbosacral Spine Exam date and time: 10/19/2021 7:35 AM Age: 40 years old Clinical indication: Pain and injury or trauma; Fall; Blunt trauma (contusions or hematomas); Low back pain; Additional info: Fall with back pain TECHNIQUE: Imaging protocol: Radiologic exam of the lumbosacral spine. Views: 2 or 3 views. Total images: 29 COMPARISON: US pelvic with transvaginal 05/30/2019 2:55 PM FINDINGS: Bones/joints: Vertebral body heights are maintained. Mild disc space height loss at L5/S1. No acute fracture nor subluxation. No osseous erosion nor periosteal reaction. No evidence of spondylolysis nor spondylolisthesis. Soft tissues: Postsurgical changes noted in the right pelvis. XR/XR lumbar spine 2-3V* [id number] IMPRESSION: 1. Mild disc space height loss at L5/S1. 2. No acute osseous pathology.
--- NOTE | 2021-10-19 07:19 | W.ED.BACK ---
HPI - Back Pain/Injury General: Chief Complaint: Back Pain/Injury Stated Complaint: Lower back injury Time Seen by Provider: 10/19/21 07:09 History of Present Illness: Patient is a 40-year-old female comes in the ED with back pain. Patient says approximately 5 days ago she was on a porch that was approximately 5 feet in the air and fell off landing on grass. She denies any loss of consciousness or head injury. Since that fall she has had lower back pain. She rates the back pain at 10 out of 10. If she is at rest or sitting in certain positions her pain improves. Certain movements of her torso and core can cause worsening pain. Pain starts in the lower back and radiates into her hips bilaterally. Denies any pain radiating into the legs. Denies any bladder or bowel incontinence, pelvic anesthesia or weakness in the legs. She has been taking ibuprofen and Aleve to help with pain. Associated symptoms: Deny abdominal pain, chills, dysuria, fatigue, fever(s), hematuria, nausea or vomiting Review of Systems Const: Denies: fever(s), chills or fatigue Eyes: Denies: change in vision or eye discomfort ENMT: Denies: throat pain, odynophagia, nasal discharge or nasal congestion Card: Denies: chest pain, palpitations, edema, swelling of feet/ankles, dyspnea on exertion or orthopnea Resp: Denies: dyspnea, productive cough or non-productive cough GI: Denies: abdominal pain, nausea, vomiting, diarrhea, constipation or hematochezia : Denies: flank pain, dysuria or hematuria Musc: Reports: back pain; Denies: neck pain or extremity swelling Skin/Breast: Denies: rash or new lesions Neuro: Denies: headache(s), numbness in extremities or weakness in extremities [facility] ED PFSH: Medical History (Updated 10/19/21 @ 08:56 by MARCO Augustin) Asthma Surgical History H/O tubal ligation Social History Smoking and tobacco status: current every day smoker Current gender identity: Female Female Reproductive History: Date of last menstrual period: 08/02/19 Physical Exam Const: COMMON NORMALS: patient oriented x3 and alert GENERAL APPEARANCE: cooperative HENMT: COMMON NORMALS: normocephalic HEAD & SCALP: normocephalic MOUTH: Normal oral and palatal mucosa present THROAT: posterior oropharynx normal and uvula midline Neck/C-Spine: COMMON NORMALS: supple GENERAL: Yes normal visual inspection Resp: COMMON NORMALS: normal respiratory effort, No retractions, No use of accessory muscles and clear to auscultation bilaterally AUSCULTATION: clear to auscultation bilaterally Cardio: COMMON NORMALS: regular rate, regular rhythm, S1 normal heart sound present, S2 normal heart sound present, No gallops present (Cardio), No clicks present (Cardio), No murmurs present (Cardio) and Peripheral pulses 2+ throughout RATE: regular rate RHYTHM: regular rhythm HEART SOUNDS: S1 normal heart sound present and S2 normal heart sound present PERIPHERAL PULSES: Peripheral pulses 2+ throughout GI: COMMON NORMALS: Normal to inspection, nondistended, normoactive bowel sounds present, Soft to palpation, non-tender and no masses PALPATION: Yes Soft to palpation : COMMON NORMALS: Yes no CVA tenderness BLADDER/KIDNEY EXAM: Yes no CVA tenderness Back/Pelvis: COMMON NORMALS: no CVA tenderness LUMBAR SPINE/LOWER BACK: Yes normal to inspection, No lumbar spinal tenderness and Yes paraspinal muscle tenderness Lumbar paraspinal muscle tenderness: bilateral Extremity: COMMON NORMALS: normal to inspection Neuro: COMMON NORMALS: patient oriented x3 SENSORIUM/ORIENTATION: Yes alert GAIT: Yes Normal gait present Skin: GENERAL SKIN EXAM: dry skin Course Vital Signs: Vital signs: Vital Signs Temperature 98.3 F 10/19/21 07:00 Pulse Rate 72 10/19/21 09:09 Respiratory Rate 14 10/19/21 09:09 Blood Pressure 106/71 10/19/21 09:09 Pulse Oximetry 98 10/19/21 09:09 Oxygen Delivery Me thod 10/19/21 08:50 MDM - Back Pain/Injury Medical Decision Making Patient is a 40-year-old female comes to the ED with back pain. Patient had a fall approximately 4 days ago that started her back pain. Denies any cauda equina symptoms. Pain is located in the lumbar region of back bilaterally. Pain does not radiate down into the legs. Vitals are stable. Exam shows some bilateral paraspinal muscle tenderness of the lumbar spine. No lumbar spinal tenderness noted. Rest of exam is benign. X-ray of lumbar spine showed no acute findings. Patient was given dose of Toradol, Decadron and Norflex while here in the ED. She is then given a tablet of hydrocodone to help with pain as well. Patient discharged home with a prescription for Celebrex, muscle relaxer and steroid. Told to follow-up with PCP in the next week for reevaluation. Return to ED precautions given. Patient understood and agreed with plan. Labs Radiology Impressions Lumbar Spine X-Ray 10/19/21 07:18 IMPRESSION: 1. Mild disc space height loss at L5/S1. 2. No acute osseous pathology. Discharge Plan Discharge Patient Disposition: Home Clinical Impression: Lumbar back pain Condition: Stable Prescriptions: New Celebrex 100 mg capsule 100 mg PO BID PRN (Reason: pain) Qty: 30 0RF cyclobenzaprine 7.5 mg tablet 7.5 mg PO BID PRN (Reason: muscle spasm) Qty: 20 0RF Medrol (Theo) 4 mg tablets,dose pack See Rx Instructions .ROUTE .COMPLEX Qty: 21 0RF Rx Instructions: orally per package directions No Action Celebrex 100 mg capsule 100 mg PO BID PRN (Reason: pain) Qty: 20 0RF Trelegy Ellipta 100-62.5-25 mcg Blister With Device 1 inh INHALATION DAILY Augmentin 875-125 mg tablet 1 tab PO BID Qty: 20 0RF Discharge Orders: Discharge ED (Routine); Ordered 10/19/21 Ordered By: Gera Adame Discharge Diet: Regular Discharge Activity: Increase activity as tolerated Patient Instructions: Acute Low Back Pain (ED), Back Pain (ED) Activity Restrictions/Additional Instructions: Follow-up with medical provider as directed in the next 5 to 7 days reevaluation. Take medications as prescribed. Return to the ER or your medical provider if condition worsens. Please read and understand discharge instructions. Thank you for choosing [facility] for your healthcare needs today. Please realize this is an emergency room and that we are providing you with a medical screening exam and this may not be complete and all inclusive of all the testing and or work up that you may need to determine your ailment or severity of your illness. It is very important that you follow up as instructed or that you return to the Emergency Department should you have concerns or if your condition changes or worsens in any way. Stand Alone Forms: Work/School Release Coding Level of Care Code ED Copy Room Technician for Chg Fwd Exam Comprehensive
[2021-10-19] MEDS: ketorolac 60 mg/2 mL INJ IM (07:29)
[2021-10-19] MEDS: dexamethasone 10 mg/mL INJ IM (07:29)
[2021-10-19] MEDS: orphenadrine 30 mg/mL Inj 2 mL 60 MG IM (07:30)
[2021-10-19 08:50] VITALS: BP 106/71; PULSE 72; RESP 14; O2SAT 98
[2021-10-19] MEDS: HYDROcodone-acetaminophen 7.5-325 mg Tablet 1 TAB PO (09:02)
[2021-10-19 09:09] VITALS: BP 106/71; PULSE 72; RESP 14; O2SAT 98
== END 2021-10-19 09:12 | disposition home or self-care (01) ==
PROVIDERS: Emergency Provider Physician Assistant
DX: M54.50 Low back pain, unspecified (principal); F17.210 Nicotine dependence, cigarettes, uncomplicated
CPT/HCPCS: 72100; 96372; 99284; J1100; J1885; J2360

== ENCOUNTER 2022-05-02 01:49 | Emergency (ER) | payer BC, MEDICAID, SELFPAY ==
[2022-05-02 01:53] VITALS: BP 113/83; PULSE 79; RESP 18; TEMP 36.6; O2SAT 98; BMI 25.0
--- NOTE | 2022-05-02 02:10 | XRR_ITS ---
PROCEDURE INFORMATION: Exam: XR Left Foot Exam date and time: 05/02/2022 2:18 AM Age: 41 years old Clinical indication: Injury or trauma; Other: Blunt trauma; Toes; Patient HX: Stubbed left great toe against a shelf at home. Redness to toe. ; Additional info: Hit big toe on shelf TECHNIQUE: Imaging protocol: Radiologic exam of the Left foot. Views: 3 or more views. COMPARISON: No relevant prior studies available. FINDINGS: Bones/joints: No acute fracture or malalignment. Mild 1st MTP joint degenerative changes. Soft tissues: Normal. XR/XR foot LT min 3V* [id number] IMPRESSION: No acute fracture or malalignment.
--- NOTE | 2022-05-02 02:21 | W.ED.EXTPRO ---
HPI - Extremity Problem General: Chief complaint: Extremity Injury, Lower Stated complaint: Left Foot Injury Time Seen by Provider: 05/02/22 02:10 History of Present Illness: Patient is a 41-year-old female who comes to the ED with left foot injury. Injury occurred just prior to arrival. She states that she got out of bed and took a couple steps in her left great toe hit one of her shelves. She now has pain, erythema and some swelling of left great toe. She rates the pain currently 8 out of 10 and says it is a throbbing type pain. Denies any other injuries. Associated symptoms: Deny chest pain, fever(s) or rash Review of Systems Const: Denies: fever(s), chills or fatigue Eyes: Denies: change in vision or eye discomfort ENMT: Denies: throat pain, odynophagia, nasal discharge or nasal congestion Card: Denies: chest pain, palpitations, edema, swelling of feet/ankles, dyspnea on exertion or orthopnea Resp: Denies: dyspnea, productive cough or non-productive cough GI: Denies: abdominal pain, nausea, vomiting, diarrhea, constipation or hematochezia : Denies: flank pain, dysuria or hematuria Musc: Reports: extremity pain (Left great toe pain ) and extremity swelling (Left great toe swelling); Denies: neck pain or back pain Skin/Breast: Denies: rash or new lesions Neuro: Denies: headache(s), numbness in extremities or weakness in extremities PFS ED PFSH: Medical History Asthma Surgical History H/O tubal ligation Social History Smoking and tobacco status: current every day smoker Current gender identity: Female Physical Exam Const: COMMON NORMALS: no acute distress, patient oriented x3, healthy appearing and alert GENERAL APPEARANCE: cooperative and comfortable HENMT: COMMON NORMALS: normocephalic HEAD & SCALP: normocephalic MOUTH: Normal oral and palatal mucosa present THROAT: posterior oropharynx normal and uvula midline Neck/C-Spine: COMMON NORMALS: supple GENERAL: Yes normal visual inspection Resp: COMMON NORMALS: normal respiratory effort, No retractions, No use of accessory muscles and clear to auscultation bilaterally AUSCULTATION: clear to auscultation bilaterally Cardio: COMMON NORMALS: regular rate, regular rhythm, S1 normal heart sound present, S2 normal heart sound present, No gallops present (Cardio), No clicks present (Cardio), No murmurs present (Cardio) and Peripheral pulses 2+ throughout RATE: regular rate RHYTHM: regular rhythm HEART SOUNDS: S1 normal heart sound present and S2 normal heart sound present PERIPHERAL PULSES: Peripheral pulses 2+ throughout GI: COMMON NORMALS: Normal to inspection, nondistended, normoactive bowel sounds present, Soft to palpation, non-tender and no masses PALPATION: Yes Soft to palpation : COMMON NORMALS: Yes no CVA tenderness BLADDER/KIDNEY EXAM: Yes no CVA tenderness Back/Pelvis: COMMON NORMALS: no CVA tenderness Extremity: NARRATIVE EXTREMITY EXAM: Left foot?great toe erythema, swelling and tenderness noted. No bleeding or wounds seen. Neurovascular intact distally. No subungual hematoma noted. Neuro: COMMON NORMALS: patient oriented x3 SENSORIUM/ORIENTATION: Yes alert GAIT: Yes Normal gait present Skin: GENERAL SKIN EXAM: dry skin Course Vital Signs: Vital signs: Vital Signs Temperature 98 F 05/02/22 01:53 Pulse Rate 79 05/02/22 01:53 Respiratory Rate 18 05/02/22 01:53 Blood Pressure 113/83 05/02/22 01:53 Pulse Oximetry 98 05/02/22 01:53 Oxygen Delivery Me thod 05/02/22 01:53 MDM - Extremity (Nontraumatic) Medical Decision Making Patient is a 41-year-old female comes to the ED with left great toe injury. Patient stubbed left foot/great toe on shelf in room. Vitals are stable. Patient appears nontoxic and in no acute distress. Left foot?great toe erythema, swelling and tenderness noted. No bleeding or wounds seen. Neurovascular intact distally. No subungual hematoma noted. X-ray of left great toe shows possible hairline fracture of distal phalanx. Patient was diagnosed with left distal phalanx great toe fracture. She was put in a stiff soled postsurgical shoe and toe was sharon taped. She is discharged home with a prescription for couple hydrocodone for acute pain. Told to rest, ice and elevate foot. Follow-up with PCP within the next 10 days for reevaluation. Patient understood and agreed with plan. Discharge Plan Discharge Patient Disposition: Home Clinical Impression: Fracture of distal phalanx of great toe Qualifiers: Encounter type: initial encounter Fracture type: closed Fracture alignment: nondisplaced Laterality: left Qualified Code(s): S92.425A - Nondisplaced fracture of distal phalanx of left great toe, initial encounter for closed fracture Condition: Stable Prescriptions: No Action Celebrex 100 mg capsule 100 mg PO BID PRN (Reason: pain) Qty: 20 0RF Trelegy Ellipta 100-62.5-25 mcg Blister With Device 1 inh INHALATION DAILY Augmentin 875-125 mg tablet 1 tab PO BID Qty: 20 0RF Celebrex 100 mg capsule 100 mg PO BID PRN (Reason: pain) Qty: 30 0RF cyclobenzaprine 7.5 mg tablet 7.5 mg PO BID PRN (Reason: muscle spasm) Qty: 20 0RF Medrol (Theo) 4 mg tablets,dose pack See Rx Instructions .ROUTE .COMPLEX Qty: 21 0RF Rx Instructions: orally per package directions Discharge Orders: Discharge ED (Routine); Ordered 05/02/22 Ordered By: Gera Adame Discharge Diet: Regular Discharge Activity: Increase activity as tolerated Patient Instructions: Toe Fracture (ED), Opioid Safety Activity Restrictions/Additional Instructions: Follow-up with medical provider as directed in the next 7 to 10 days for reevaluation. Sharon tape toe and wear stiff sole shoe. Can rest ice and elevate as well to help with symptoms. Take medications as prescribed. Return to the ER or your medical provider if condition worsens. Please read and understand discharge instructions. Thank you for choosing [facility] for your healthcare needs today. Please realize this is an emergency room and that we are providing you with a medical screening exam and this may not be complete and all inclusive of all the testing and or work up that you may need to determine your ailment or severity of your illness. It is very important that you follow up as instructed or that you return to the Emergency Department should you have concerns or if your condition changes or worsens in any way. Coding Level of Care Code ED Division Order Technician for Cristobal Pickett
[2022-05-02] MEDS: HYDROcodone-acetaminophen 7.5-325 mg Tablet 1 TAB PO (02:26)
== END 2022-05-02 02:52 | disposition home or self-care (01) ==
PROVIDERS: Emergency Provider Physician Assistant
DX: S92.425A Nondisplaced fracture of distal phalanx of left great toe, initial encounter for closed fracture (principal); F17.210 Nicotine dependence, cigarettes, uncomplicated; W22.03XA Walked into furniture, initial encounter
CPT/HCPCS: 73630; 99283

== ENCOUNTER 2022-06-09 14:01 | Emergency (ER) | payer BC, MEDICAID, SELFPAY ==
[2022-06-09 14:15] VITALS: BP 113/72; PULSE 90; RESP 18; TEMP 36.4; O2SAT 98; BMI 25.7
--- NOTE | 2022-06-09 15:04 | ED_ITS ---
HPI - Back Pain/Injury General: Chief Complaint: Back Pain/Injury Stated Complaint: abd pain Time Seen by Provider: 06/09/22 14:58 History of Present Illness: Patient is a 41-year-old female comes to the ED with back pain. Symptoms started approximately 5 to 6 months ago. 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 Mid back pain was more manageable months ago but over the past 2 weeks its becoming more constant. Pain is localized right in the mid back region. She rates the pain currently an 8 out of 10. Lifting, bending or movement of torso makes mid back pain worse. Denies any dysuria, hematuria or vaginal bleeding. Patient states that she has not had a menstrual period in approximately 2 years. Endorses having a little bit of nausea when the pain is bad but denies any episodes of emesis. Denies any fevers, abdominal pain, bowel symptoms. Associated symptoms: Deny abdominal pain, chills, dysuria, fatigue, fever(s), hematuria, nausea or vomiting Review of Systems Const: Denies: fever(s), chills or fatigue Eyes: Denies: change in vision or eye discomfort ENMT: Denies: throat pain, odynophagia, nasal discharge or nasal congestion Card: Denies: chest pain, palpitations, edema, swelling of feet/ankles, dyspnea on exertion or orthopnea Resp: Denies: dyspnea, productive cough or non-productive cough GI: Denies: abdominal pain, nausea, vomiting, diarrhea, constipation or hematochezia : Denies: flank pain, dysuria or hematuria Musc: Reports: back pain; Denies: neck pain or extremity swelling Skin/Breast: Denies: rash or new lesions Neuro: Denies: headache(s), numbness in extremities or weakness in extremities PFSH ED PFSH: Medical History Asthma Surgical History H/O tubal ligation Social History Smoking and tobacco status: current every day smoker Current gender identity: Female Physical Exam Const: COMMON NORMALS: no acute distress, patient oriented x3 and alert HENMT: COMMON NORMALS: normocephalic HEAD & SCALP: normocephalic MOUTH: Normal oral and palatal mucosa present THROAT: posterior oropharynx normal and uvula midline Neck/C-Spine: COMMON NORMALS: supple GENERAL: Yes normal visual inspection Resp: COMMON NORMALS: normal respiratory effort, No retractions, No use of accessory muscles and clear to auscultation bilaterally AUSCULTATION: clear to auscultation bilaterally Cardio: COMMON NORMALS: regular rate, regular rhythm, S1 normal heart sound present, S2 normal heart sound present, No gallops present (Cardio), No clicks present (Cardio), No murmurs present (Cardio) and Peripheral pulses 2+ th roughout RATE: regular rate RHYTHM: regular rhythm HEART SOUNDS: S1 normal heart sound present and S2 normal heart sound present PERIPHERAL PULSES: Peripheral pulses 2+ throughout GI: COMMON NORMALS: Normal to inspection, nondistended, normoactive bowel sounds present, Soft to palpation, non-tender and no masses PALPATION: Yes Soft to palpation : COMMON NORMALS: Yes no CVA tenderness BLADDER/KIDNEY EXAM: Yes no CVA tenderness Back/Pelvis: COMMON NORMALS: no CVA tenderness THORACIC SPINE/UPPER BACK: Yes pain with ROM and Yes paraspinal muscle tenderness Thoracic paraspinal muscle tenderness: bilateral Extremity: COMMON NORMALS: normal to inspection Neuro: COMMON NORMALS: patient oriented x3 SENSORIUM/ORIENTATION: Yes alert GAIT: Yes Normal gait present Skin: GENERAL SKIN EXAM: dry skin Course Vital Signs: Vital signs: Vital Signs Temperature 97.6 F 06/09/22 14:15 Pulse Rate 90 06/09/22 14:15 Respiratory Rate 18 06/09/22 14:15 Blood Pressure 113/72 06/09/22 14:15 Pulse Oximetry 98 06/09/22 14:15 Oxygen Delivery Me thod 06/09/22 14:15 MDM - Back Pain/Injury Medical Decision Making Patient is a 41-year-old female comes to the ED with mid back pain. Symptoms been going on for several months now and have progressed and got worse. Pain w orsens with movement. Vitals are stable. Exam of patient shows thoracic paraspinal muscle tenderness bilaterally and rest of exam is benign. She appears nontoxic in no acute distress. All blood work and UA were unremarkable. Patient was given dose of Toradol and muscle relaxer here in the ED. She was diagnosed with back pain and discharged home with a prescription for an NSAID and a muscle relaxer. Told to follow-up with PCP in the next week for reevaluation. Return to ED precautions given. Patient understood agree with plan Labs I reviewed the patient's lab results. 06/09/22 14:54 06/09/22 14:54 Laboratory Results WBC 9.2 10^3/uL (4.0-10.0) 06/09/22 14:54 RBC 4.84 10^6/uL (4.1-5.3) 06/09/22 14:54 Hgb 15.1 g/dL (11.5-15.3) 06/09/22 14:54 Hct 44.9 % (37.0-47.0) 06/09/22 14:54 MCV 92.8 fl (81-99) 06/09/22 14:54 MCH 31.2 pg (28.0-34.0) 06/09/22 14:54 MCHC 33.6 g/dL (30.0-36.0) 06/09/22 14:54 RDW 13.2 % (12.1-15.1) 06/09/22 14:54 Plt Count 318 10^3/cmm (130-400) 06/09/22 14:54 MPV 9.2 fL (7.4-10.4) 06/09/22 14:54 Neut % (Auto) 48.0 % 06/09/22 14:54 Lymph % (Auto) 43.0 % 06/09/22 14:54 [place] % (Auto) 6.0 % 06/09/22 14:54 Eos % (Auto) 1.6 % 06/09/22 14:54 Baso % (Auto) 1.2 % 06/09/22 14:54 Neut # (Auto) 4.42 10^3/uL (1.8-7.7) 06/09/22 14:54 Lymph # (Auto) 4.0 10^3/uL (0.8-4.8) 06/09/22 14:54 [place] # (Auto) 0.6 10^3/uL (0.2-0.9) 06/09/22 14:54 Eos # (Auto) 0.2 10^3/uL (0.0-0.8) 06/09/22 14:54 Baso # (Auto) 0.1 10^3/uL (0.0-0.1) 06/09/22 14:54 Nucleated RBC % (auto) 0 % 06/09/22 14:54 Nucleated RBCs # 0.0 /100WBC 06/09/22 14:54 Sodium 138 mmol/L (136-145) 06/09/22 14:54 Potassium 3.9 mmol/L (3.5-5.1) 06/09/22 14:54 Chloride 102 mmol/L (98-107) 06/09/22 14:54 Carbon Dioxide 25 mmol/L (22-29) 06/09/22 14:54 Anion Gap 14.9 (5-19) 06/09/22 14:54 BUN 10 mg/dL (6-20) 06/09/22 14:54 Creatinine 0.6 mg/dL (0.5-0.9) 06/09/22 14:54 GFR Calculation 109.1 mL/min (90-130) 06/09/22 14:54 Glucose 79 mg/dL (65-115) 06/09/22 14:54 Calculated Osmolality 284 mOsm/kg (285-295) L 06/09/22 14:54 Calcium 9.5 mg/dL (8.5-10.5) 06/09/22 14:54 Total Bilirubin 0.4 mg/dL (0.15-1.2) 06/09/22 14:54 AST 16 U/L (0-32) 06/09/22 14:54 ALT 12 U/L (0-33) 06/09/22 14:54 Alkaline Phosphatase 85 U/L (35-105) 06/09/22 14:54 Total Protein 7.5 g/dL (6.6-8.7) 06/09/22 14:54 Albumin 4.4 g/dL (3.5-5.2) 06/09/22 14:54 Globulin 3.1 g/dL (1.3-4.6) 06/09/22 14:54 Lipase 46 U/L (13-60) 06/09/22 14:54 HCG, Qual Negative (Negative) 06/09/22 14:54 Urine Color Yellow (Yellow) 06/09/22 14:57 Urine Appearance Hazy (CLEAR) A 06/09/22 14:57 Urine pH 8 (5-7) H 06/09/22 14:57 Ur Specific [place] 1.020 (1.005-1.030) 06/09/22 14:57 Urine Protein Neg (Negative) 06/09/22 14:57 Urine Glucose (UA) Norm (Normal) 06/09/22 14:57 Urine Ketones Negative (Negative) 06/09/22 14:57 Urine Blood Neg (Negative) 06/09/22 14:57 Urine Nitrate Negative (Negative) 06/09/22 14:57 Urine Bilirubin Neg (Negative) 06/09/22 14:57 Prot Sulfosalicylic Acd Negative (Negative) 06/09/22 14:57 Urine Urobilinogen Norm mg/dL (Negative) 06/09/22 14:57 Ur Leukocyte Esterase Negative (Negative) 06/09/22 14:57 Urine RBC Rare /hpf (0-2) 06/09/22 14:57 Urine WBC Rare /hpf (0-5) 06/09/22 14:57 Ur Squamous Epith Cells 0-4 /hpf (0-5) H 06/09/22 14:57 Amorphous Sediment 1+ /hpf 06/09/22 14:57 Urine Bacteria Trace /hpf (NONE) 06/09/22 14:57 Discharge Plan Discharge Patient Disposition: Home Clinical Impression: Back pain Qualifiers: Back pain location: thoracic back pain Chronicity: unspecified Back pain laterality: bilateral Qualified Code(s): M54.6 - Pain in thoracic spine Condition: Stable Prescriptions: New cyclobenzaprine 10 mg tablet 10 mg PO BID PRN (Reason: muscle spasm) Qty: 20 0RF ibuprofen 800 mg tablet 800 mg PO Q8H PRN (Reason: pain) Qty: 30 0RF No Action Celebrex 100 mg capsule 100 mg PO BID PRN (Reason: pain) Qty: 20 0RF Trelegy Ellipta 100-62.5-25 mcg Blister With Device 1 inh INHALATION DAILY Augmentin 875-125 mg tablet 1 tab PO BID Qty: 20 0RF Celebrex 100 mg capsule 100 mg PO BID PRN (Reason: pain) Qty: 30 0RF cyclobenzaprine 7.5 mg tablet 7.5 mg PO BID PRN (Reason: muscle spasm) Qty: 20 0RF Medrol (Theo) 4 mg tablets,dose pack See Rx Instructions .ROUTE .COMPLEX Qty: 21 0RF Rx Instructions: orally per package directions Discharge Orders: Discharge ED (Routine); Ordered 06/09/22 Ordered By: Gera Adame Discharge Diet: Regular Discharge Activity: Increase activity as tolerated Patient Instructions: Back Pain (ED) Activity Restrictions/Additional Instructions: Follow-up with medical provider as directed in the next 5 to 7 days for reevaluation. Take medications as prescribed. Return to the ER or your medical provider if condition worsens. Please read and understand discharge instructions. Thank you for choosing [facility] for your healthcare needs today. Please realize this is an emergency room and that we are providing you with a medical screening exam and this may not be complete and all inclusive of all the testing and or work up that you may need to determine your ailment or severity of your illness. It is very important that you follow up as instructed or that you return to the Emergency Department should you have concerns or if your condition changes or worsens in any way. Stand Alone Forms: Work/School Release Coding Level of Care Code ED Police Communications Dispatcher for Cristobal Pickett
[2022-06-09 15:16] LABS: Basophils # 0.1 10^3/uL (0.0-0.1); Basophils % 1.2 %; Eosinophils # 0.2 10^3/uL (0.0-0.8); Eosinophils % 1.6 %; Hematocrit 44.9 % (37.0-47.0); Hemoglobin 15.1 g/dL (11.5-15.3); Mean Corpuscular HGB Conc 33.6 g/dL (30.0-36.0); Mean Corpuscular Hemoglobin 31.2 pg (28.0-34.0); Mean Corpuscular Volume 92.8 fl (81-99); Mean Platelet Volume 9.2 fL (7.4-10.4); Monocytes # 0.6 10^3/uL (0.2-0.9); Neutrophils # 4.42 10^3/uL (1.8-7.7); Nucleated Red Blood Cells % 0 %; Platelet Count 318 10^3/cmm (130-400); Red Blood Count 4.84 10^6/uL (4.1-5.3); Red Cell Distribution Width 13.2 % (12.1-15.1); White Blood Count 9.2 10^3/uL (4.0-10.0)
[2022-06-09 15:28] LABS: Add Urine Microscopic? YES; Amorphous Sediment Urine 1+ /hpf; Bacteria Urine TRACE /hpf; Bilirubin Urine Neg (Negative); Blood Urine Neg (Negative); Glucose Urine UA Norm (Normal); Ketones Urine Negative (Negative); Leukocyte Esterase Urine Negative (Negative); Nitrate Urine Negative (Negative); Protein Urine Neg (Negative); RBC Urine RARE /hpf (0-2); Squamous Epithelial Cell Urine 0-4 /hpf (0-5); Sulfosalicylic Acid Urine Negative (Negative); Urine Appearance Hazy (CLEAR); Urine Color Yellow (Yellow); Urobilinogen Urine Norm (Negative); WBC Urine RARE /hpf (0-5); pH Urine 8 (5-7)
[2022-06-09 15:41] LABS: Alanine Aminotransferase 12 U/L (0-33); Albumin Level 4.4 g/dL (3.5-5.2); Alkaline Phosphatase 85 U/L (35-105); Anion Gap 14.9 (5-19); Aspartate Amino Transferase 16 U/L (0-32); Blood Urea Nitrogen 10 mg/dL (6-20); Calcium 9.5 mg/dL (8.5-10.5); Carbon Dioxide 25 mmol/L (22-29); Chloride 102 mmol/L (98-107); Creatinine Clr Calc Pharmacy 118.9471; Globulin 3.1 g/dL (1.3-4.6); Glomerular Filtration Rate 109.1 mL/min (90-130); Glucose 79 mg/dL (65-115); Lipase 46 U/L (13-60); Osmolality Calculated 284 mOsm/kg (285-295); Potassium 3.9 mmol/L (3.5-5.1); Sodium 138 mmol/L (136-145); Total Bilirubin 0.4 mg/dL (0.15-1.2); Total Protein 7.5 g/dL (6.6-8.7)
[2022-06-09 15:46] LABS: HCG, Serum Qual Negative (Negative)
[2022-06-09] MEDS: orphenadrine 30 mg/mL Inj 2 mL 60 MG IM (15:57)
[2022-06-09] MEDS: ketorolac 60 mg/2 mL INJ IM (15:58)
--- NOTE | 2022-06-20 14:02 | DCPLANNER ---
digital marketing project manager called patient due to no primary care physician - no answer at this time
== END 2022-06-09 16:35 | disposition home or self-care (01) ==
PROVIDERS: Emergency Medicine; Emergency Provider Physician Assistant
DX: M54.6 Pain in thoracic spine (principal); F17.210 Nicotine dependence, cigarettes, uncomplicated
CPT/HCPCS: 36415; 80053; 81001; 83690; 84703; 85025; 96372; 99284; J1885; J2360

== ENCOUNTER 2022-09-01 14:38 | Emergency (ER) | payer BC, MEDICAID, SELFPAY ==
--- NOTE | 2022-09-01 14:42 | XRR_ITS ---
PROCEDURE INFORMATION: Exam: XR Right Hand Exam date and time: 09/01/2022 3:47 PM Age: 41 years old Clinical indication: Injury or trauma; Blunt trauma (contusions or hematomas); Hand; Right; Patient HX: PT has pain at R 1st mcp joint after fall; Additional info: Fall with pain TECHNIQUE: Imaging protocol: Radiologic exam of the right hand. Views: 3 or more views. COMPARISON: No relevant prior studies available. FINDINGS: Bones/joints: Normal. Soft tissues: Normal. XR/XR hand RT min 3V* [id number] IMPRESSION: No acute findings.
[2022-09-01 14:50] VITALS: BP 121/84; PULSE 86; RESP 18; TEMP 36.7; O2SAT 98; BMI 25.0
--- NOTE | 2022-09-01 16:15 | ED_ITS ---
HPI - Extremity Problem General: Chief complaint: Extremity Injury, Upper Stated complaint: fall, right hand thumb pain Time Seen by Provider: 09/01/22 15:47 History of Present Illness: Patient presents ER complaining of left hand pain. Patient said she fell last night try to cut herself. Is unsure if she had pain immediately but definitely when she woke up this morning she had pain. 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 Patient said the pain is 7 out of 10 with movement and is better with not movement but is still there. Patient not have this pain before the fall. Review of Systems General: Reports: 10 or more systems reviewed and unremarkable except in HPI and below PFSH ED PFSH: Medical History (Updated 09/01/22 @ 16:59 by Johan Manzanares DO) Asthma Surgical History H/O tubal ligation Social History Smoking and tobacco status: current every day smoker Current gender identity: Female Physical Exam Const: COMMON NORMALS: no acute distress, average body habitus, patient oriented x3, no limitations, healthy appearing, alert and well nourished Neck/C-Spine: COMMON NORMALS: full ROM, no lymphadenopathy, supple, no meningeal signs, no JVD and Thyroid normal THYROID: Thyroid normal Chest: COMMONS NORMALS: normal inspection of the chest and normal palpation of entire chest wall Resp: COMMON NORMALS: normal respiratory effort, No retractions, No use of accessory muscles and clear to auscultation bilaterally AUSCULTATION: clear to auscultation bilaterally Cardio: COMMON NORMALS: no JVD, regular rate, regular rhythm, S1 normal heart sound present, S2 normal heart sound present, No gallops present (Cardio), No clicks present (Cardio), No murmurs present (Cardio) and No rub (Cardio) RATE: regular rate RHYTHM: regular rhythm HEART SOUNDS: S1 normal heart sound present and S2 normal heart sound present GI: COMMON NORMALS: Normal to inspection, nondistended, normoactive bowel sounds present, Soft to palpation, non-tender, No hepatosplenomegaly present and no masses PALPATION: Yes Soft to palpation and Yes No hepatosplenomegaly present Extremity: NARRATIVE EXTREMITY EXAM: Tenderness with palpation limited range of motion and swelling over left thumb region. No obvious crepitus. Neuro: COMMON NORMALS: patient oriented x3 SENSORIUM/ORIENTATION: Yes alert MENINGEAL SIGNS: Yes no meningeal signs Course Vital Signs: Vital signs: Vital Signs Temperature 98.0 F 09/01/22 14:50 Pulse Rate 86 09/01/22 14:50 Respiratory Rate 18 09/01/22 14:50 Blood Pressure 121/84 09/01/22 14:50 Pulse Oximetry 98 09/01/22 14:50 Oxygen Delivery Me thod Room Air 09/01/22 14:50 MDM - Extremity (Nontraumatic) Medical Decision Making Patient presents to the ER with complaints of hand pain status post fall last night. Patient's right hand is swollen in the thumb region tender to palpate. X-ray was obtained which showed no acute findings. Patient be discharged home with diagnosis of hand pain and instructed to follow-up with her PCP in approximately 1 week as needed. Patient can continue to take [id number] Tylenol and Motrin as needed for pain. Medical Records I reviewed the patient's medical records. Lab Data I reviewed the patient's lab results. Radiology Impressions Hand X-Ray 09/01/22 14:42 IMPRESSION: No acute findings. Discharge Plan Discharge Patient Disposition: Home Clinical Impression: Hand pain Qualifiers: Laterality: unspecified laterality Qualified Code(s): M79.643 - Pain in unspecified hand Condition: Stable Prescriptions: No Action ibuprofen 200 mg Capsule 400 mg PO Q6H PRN (Reason: Pain) Discharge Orders: Discharge ED (Routine); Ordered 09/01/22 Ordered By: Johan Manzanares Patient Instructions: Hand Sprain (ED) Activity Restrictions/Additional Instructions: Please continue to take [id number] Tylenol ibuprofen as directed as needed for pain. Please follow-up with your family practice doctor within next 1 week or sooner as needed. Coding Level of Care Code ED Student Driving Instructor for Cristobal Pickett
== END 2022-09-01 17:27 | disposition home or self-care (01) ==
PROVIDERS: Emergency Provider Emergency Medicine
DX: M79.641 Pain in right hand (principal)
CPT/HCPCS: 73130; 99283

== ENCOUNTER 2022-11-16 15:20 | Emergency (ER) | payer BC, MEDICAID, SELFPAY ==
[2022-11-16 15:35] VITALS: BP 112/79; PULSE 84; RESP 15; TEMP 36.6; O2SAT 98; BMI 25.7
--- NOTE | 2022-11-16 16:54 | ED_ITS ---
HPI - Dental/Oral General: Chief complaint: Dental/Oral Stated complaint: dental pain Time Seen by Provider: 11/16/22 16:38 Source: patient Mode of arrival: ambulatory History of Present Illness: 42-year-old female who presents emergency room with a complaint of dental pain and swelling. No drainage no fevers sweats or chills. MD Complaint: tooth pain Onset (ago): day(s) Duration: constant Severity: moderate Relieving factors: nothing Exacerbating factors: chewing and cold Context: history of dental caries Associated symptoms: Reports ear or mastoid pain; Denies fever(s), gum swelling, odynophagia, sore throat or tongue swelling Treatment prior to arrival: topical analgesic Review of Systems Const: Denies: fever(s) ENMT: Reports: ear or mastoid pain; Denies: odynophagia Card: Denies: chest pain, edema, dyspnea on exertion or orthopnea Resp: Denies: dyspnea, productive cough or non-productive cough GI: Denies: abdominal pain, nausea, vomiting, hematemesis, coffee ground emesis, diarrhea, constipation, bloating, hematochezia or melena : Denies: flank pain, difficulty voiding, dysuria, urinary frequency or urinary urgency Skin/Breast: Denies: rash or pruritus All/Imm: Denies: tongue swelling PFSH ED PFSH: Medical History Asthma Surgical History H/O tubal ligation Social History Smoking and tobacco status: current every day smoker Current gender identity: Female Physical Exam Const: GENERAL APPEARANCE: cooperative and comfortable ORIENTATION/CONSCIOUSNESS: Yes awake, Yes oriented to person, Yes oriented to place and Yes oriented to time HENMT: COMMON NORMALS: normocephalic, atraumatic and hearing grossly normal bilaterally HEAD & SCALP: normocephalic and atraumatic OTHER: Left mandibular dental pain no active drainage. No lymphadenopathy no swelling in the submandibular space Resp: COMMON NORMALS: normal respiratory effort, No retractions, No use of accessory muscles and clear to auscultation bilaterally AUSCULTATION: clear to auscultation bilaterally Cardio: COMMON NORMALS: regular rate, regular rhythm and No murmurs present (Cardio) RATE: regular rate RHYTHM: regular rhythm GI: COMMON NORMALS: Soft to palpation and No hepatosplenomegaly present AUSCULTATION: Yes normoactive bowel sounds PALPATION: Yes Soft to palpation, No Tenderness to palpation present (GI), No Guarding due to palpation present (GI) and Yes No hepatosplenomegaly present Extremity: COMMON NORMALS: normal to inspection, capillary refill normal, no clubbing, cyanosis or edema, no calf tenderness and no pedal edema Neuro: SENSORIUM/ORIENTATION: Yes oriented to person, Yes oriented to place and Yes oriented to time Skin: COMMON NORMALS: no rashes or lesions noted GENERAL SKIN EXAM: no rashes or lesions noted Course Vital Signs: Vital signs: Vital Signs Temperature 97.8 F 11/16/22 15:35 Pulse Rate 84 11/16/22 15:35 Respiratory Rate 15 11/16/22 15:35 Blood Pressure 112/79 11/16/22 15:35 Pulse Oximetry 98 11/16/22 15:35 Oxygen Delivery Me thod Room Air 11/16/22 15:35 MDM - Dental/Oral Medical Decision Making Start oral antibiotics diclofenac as needed for pain avoid extremes of temperature and food or liquids recheck with dentist as soon as able. Medical Records I reviewed the patient's medical records. Lab Data Laboratory Results POC Glucose 93 mg/dL (70-110) 11/16/22 17:02 Discharge Plan Discharge Patient Disposition: Home Clinical Impression: Gingival abscess Condition: Stable Prescriptions: New amoxicillin-pot clavulanate 875-125 mg tablet 1 tab PO BID Qty: 20 0RF diclofenac sodium 75 mg tablet,delayed release (DR/EC) 75 mg PO Q12H PRN (Reason: pain) Qty: 20 0RF Discontinued ibuprofen 200 mg Capsule 400 mg PO Q6H PRN (Reason: Pain) Discharge Orders: Discharge ED (Routine); Ordered 11/16/22 Ordered By: Desmond Fung Discharge Diet: Usual diet Discharge Activity: Resume usual activity Patient Instructions: Dental Abscess (ED), Opioid Safety, Pain Management Coding Level of Care Code ED Parking Meter Installer for Cristobal Pickett
[2022-11-16 17:06] LABS: Glucose Point of Care 93 mg/dL (70-110)
--- NOTE | 2022-11-17 13:10 | DCPLANNER ---
media manager called patient due to no primary care physician. media manager spoke with patient, she stated that she would like help in getting a primary care physician. media manager called [facility], gave clinic patients information. A follow up appointment was scheduled for Thursday, December 08, 2022 at 9:[address] Moon. media manager gave patient the appointment information.
== END 2022-11-16 17:14 | disposition home or self-care (01) ==
PROVIDERS: Emergency Provider Family Medicine
DX: K05.20 Aggressive periodontitis, unspecified (principal); F17.210 Nicotine dependence, cigarettes, uncomplicated
CPT/HCPCS: 36416; 82962; 99283

== ENCOUNTER 2023-01-11 10:02 | Emergency (ER) | payer BC, MEDICAID, SELFPAY ==
[2023-01-11 10:07] VITALS: BP 117/73; PULSE 95; RESP 16; TEMP 36.5; O2SAT 96; BMI 26.6
--- NOTE | 2023-01-11 10:18 | W.ED.EXTPRO ---
HPI - Extremity Problem General: Chief complaint: Extremity Injury, Lower Stated complaint: fall, tailbone pain Time Seen by Provider: 01/11/23 10:10 History of Present Illness: 42-year-old female presents emergency department with complaints of pain to her coccyx area. She states she was at a friend's house when she was walking down the stairs when she slipped and fell because of her friend's dogs. She states her friends dogs stepped on her and scratched her back after she fell and hurt her buttocks. She states her pain is a 6 out of 10 worse if she sits on it. She denies numbness or tingling to the extremity. She denies loss of bowel or bladder or incontinence of bowel or bladder. She denies additional back or neck pain. She denies loss of consciousness. She states she is able to ambulate without difficulty it just hurts worse when she sits. She states her pain is described as a dull aching throbbing pain she states this happened approximately 15 minutes prior to arrival Review of Systems General: Reports: 10 or more systems reviewed and unremarkable except in HPI and below Musc: Reports: back pain PFSH ED PFSH: Medical History (Updated 01/11/23 @ 11:21 by Tyson Dsouza MD) Asthma Surgical History H/O tubal ligation Social History Smoking and tobacco/nicotine status: current every day tobacco/nicotine user Current gender identity: Female Physical Exam Const: COMMON NORMALS: no acute distress, patient oriented x3 and alert HENMT: COMMON NORMALS: normocephalic, atraumatic and moist oral mucous membranes HEAD & SCALP: normocephalic and atraumatic Eye: COMMON NORMALS: Equal, round and reactive pupils present and EOMs intact bilaterally PUPIL: Yes Equal, round and reactive pupils present Neck/C-Spine: COMMON NORMALS: full ROM, no lymphadenopathy, supple and no meningeal signs Resp: COMMON NORMALS: normal respiratory effort, No retractions and clear to auscultation bilaterally AUSCULTATION: clear to auscultation bilaterally Cardio: COMMON NORMALS: regular rate, regular rhythm, S1 normal heart sound present, S2 normal heart sound present and Peripheral pulses 2+ throughout RATE: regular rate RHYTHM: regular rhythm HEART SOUNDS: S1 normal heart sound present and S2 normal heart sound present PERIPHERAL PULSES: Peripheral pulses 2+ throughout GI: COMMON NORMALS: Normal to inspection, nondistended, normoactive bowel sounds present, Soft to palpation and non-tender PALPATION: Yes Soft to palpation Back/Pelvis: PELVIS: Yes buttock abnormal (Quarter sized area of bruising to the superior left gluteal cleft area) Buttock abnormal laterality: left, Yes no pain with lateral compression and Yes tenderness over symphysis pubis SACROILIAC JOINTS: Yes SI joints normal SACRUM: tenderness Extremity: COMMON NORMALS: normal to inspection, full ROM and capillary refill normal Neuro: COMMON NORMALS: patient oriented x3, CN's II-XII intact bilaterally and moves all extremities SENSORIUM/ORIENTATION: Yes alert MENINGEAL SIGNS: Yes no meningeal signs Psych: COMMON NORMALS: mental status grossly normal, Normal thought process present and cooperative THOUGHT PROCESS: Normal thought process present Skin: TRAUMA: other (Contusion with ecchymosis to the left gluteus) Course Vital Signs: Vital signs: Vital Signs Temperature 97.7 F 01/11/23 10:07 Pulse Rate 95 01/11/23 10:07 Respiratory Rate 16 01/11/23 10:07 Blood Pressure 117/73 01/11/23 10:07 Pulse Oximetry 96 01/11/23 10:07 Oxygen Delivery Me thod Room Air 01/11/23 10:07 MDM - Extremity (Nontraumatic) Medical Decision Making Physical exam completed and documented. I will obtain radiographic film to evaluate for coccygeal fracture. I will provide her pain medication as well as muscle relaxer and a written prescription for both at the time of discharge. Lab Data Radiology Impressions Sacrum and Coccyx X-Ray 01/11/23 10:34 IMPRESSION: Nondisplaced fracture through the distal sacrum. All radiology interpretation(s) finalized by discharge ED provider radiology interpretation(s): [address] [place] [address] XRay Report Signed COMPARISON: CR XR lumbar spine 2-3V* [id number] 10/19/2021 7:35 AM FINDINGS: Bones/joints: The sacroiliac joints are grossly symmetric. The sacrum is partially obscured by overlying bowel gas/stool. There is a nondisplaced fracture through the distal sacrum. Soft tissues: Mild posterior soft tissue swelling. Intraperitoneal space: Surgical clips in the right pelvis. XR/XR sacrum coccyx min 2V [id number] IMPRESSION: Nondisplaced fracture through the distal sacrum. ? Discharge Plan Discharge Patient Disposition: Home Clinical Impression: Fracture of sacrum, Fall Condition: Stable Prescriptions: New hydrocodone-acetaminophen 5-325 mg tablet 1 tab PO Q6H Qty: 20 0RF cyclobenzaprine 10 mg tablet 10 mg PO Q8H Qty: 20 0RF Discharge Orders: Discharge ED (Routine); Ordered 01/11/23 Ordered By: Tyson Dsouza Discharge Diet: Advance as tolerated Discharge Activity: Resume usual activity Patient Instructions: Opioid Safety, Pain Management Coding Level of Care Code ED Mail Distribution Scheme Examiner for Cristobal Pickett
--- NOTE | 2023-01-11 10:34 | XRR_ITS ---
PROCEDURE INFORMATION: Exam: XR Sacrum and Coccyx, 2 or More Views Exam date and time: 01/11/2023 10:41 AM Age: 42 years old Clinical indication: Injury or trauma; Fall; Blunt trauma (contusions or hematomas) TECHNIQUE: Imaging protocol: XR of the sacrum and coccyx, 2 or more views. COMPARISON: CR XR lumbar spine 2-3V* [id number] 10/19/2021 7:35 AM FINDINGS: Bones/joints: The sacroiliac joints are grossly symmetric. The sacrum is partially obscured by overlying bowel gas/stool. There is a nondisplaced fracture through the distal sacrum. Soft tissues: Mild posterior soft tissue swelling. Intraperitoneal space: Surgical clips in the right pelvis. XR/XR sacrum coccyx min 2V [id number] IMPRESSION: Nondisplaced fracture through the distal sacrum.
[2023-01-11] MEDS: cyclobenzaprine 10 mg Tablet PO (10:43)
[2023-01-11] MEDS: ketorolac 60 mg/2 mL INJ IM (10:43)
== END 2023-01-11 12:30 | disposition home or self-care (01) ==
PROVIDERS: Emergency Provider Internal Medicine
DX: S32.10XA Unspecified fracture of sacrum, initial encounter for closed fracture (principal); Z72.0 Tobacco use; W19.XXXA Unspecified fall, initial encounter
CPT/HCPCS: 72220; 96372; 99284; J1885

== ENCOUNTER 2023-04-10 18:29 | Emergency (ER) | payer MEDICAID, SELFPAY ==
[2023-04-10 18:35] VITALS: BP 157/110; PULSE 81; RESP 18; TEMP 36.7; O2SAT 100
--- NOTE | 2023-04-10 18:41 | XRR_ITS ---
PROCEDURE INFORMATION: Exam: XR Chest Exam date and time: 04/10/2023 6:44 PM Age: 42 years old Clinical indication: Pain; Chest pressure; Additional info: Chest pain TECHNIQUE: Imaging protocol: Radiologic exam of the chest. Views: 1 view. COMPARISON: CR XR chest 1V portable [id number] 01/25/2020 10:48 AM FINDINGS: Lungs: Hyperinflated lungs. No consolidation. Pleural spaces: Unremarkable. No pleural effusion. No pneumothorax. Heart/Mediastinum: Unremarkable. No cardiomegaly. Bones/joints: Unremarkable. XR/XR chest 1V portable [id number] IMPRESSION: No acute findings.
--- NOTE | 2023-04-10 18:41 | ECG_ITS ---
[facility] Test Date: 2023-04-10 Pat Name: Candace Gresham Department: Room: Gender: Female Marketing Operations Assistant: : 1980 Requested By: Johan Manzanares Order Number: [id number] David MD: Javire Dillon M.D. Measurements Intervals [place] Rate: 78 P: 60 [place]: 165 QRS: 68 QRSD: 86 T: 49 QT: 364 QTc: 415 Interpretive Statements SINUS RHYTHM POSSIBLE LEFT ATRIAL ENLARGEMENT [-0.1mV P-WAVE IN V1/V2] Compared to ECG 01/25/2020 13:33:56 Sinus bradycardia no longer present Electronically Signed On 04-11-2023 18:33:04 FAMILY INTERVENTION SPECIALIST by Javier Dillon M.D. [id number]
[2023-04-10 18:58] LABS: Basophils # 0.1 10^3/uL (0.0-0.1); Basophils % 1.2 %; Eosinophils # 0.3 10^3/uL (0.0-0.8); Eosinophils % 3.4 %; Hematocrit 40.5 % (36-47); Lymphocytes % 46.3 %; Mean Corpuscular HGB Conc 34.1 g/dL (30-55); Mean Corpuscular Hemoglobin 31.4 pg (27-33); Mean Platelet Volume 8.9 fL (7.4-10.4); Monocytes # 0.7 10^3/uL (0.2-0.9); Monocytes % 7.8 %; Neutrophils # 3.53 10^3/uL (1.8-7.7); Neutrophils % 41.2 %; Nucleated Red Blood Cells % 0 %; Platelet Count 329 10^3/cmm (157-399); Red Cell Distribution Width 13.1 % (12.1-15.1); White Blood Count 8.56 10^3/uL (3.29-11.43)
--- NOTE | 2023-04-10 19:07 | W.ED.CHESTPA ---
HPI - Chest Pain General: Chief Complaint: Chest Pain Stated Complaint: chest pain panic left shoulder and neck Time Seen by Provider: 04/10/23 18:34 History of Present Illness: Patient presents to the ER with complaints of sharp stabbing left chest pain that radiates up into her neck and her left shoulder blade. Patient said that taking big deep breath makes this worse. Patient was just sitting when it started she does not remember overexerting or traumatizing her left chest. Patient does not have any cardiac history. Patient does have anxiety and she believes anxiety is making it worse. Patient says this makes her little short of breath but denies any diaphoresis or nausea vomiting. Patient is never had pain like this before. Review of Systems General: Reports: 10 or more systems reviewed and unremarkable except in HPI and below PFSH ED PFSH: Medical History (Updated 04/10/23 @ 21:01 by Johan Manzanares DO) Asthma Surgical History H/O tubal ligation Social History Smoking and tobacco/nicotine status: current every day tobacco/nicotine user Current gender identity: Female Physical Exam Const: COMMON NORMALS: no acute distress, average body habitus, patient oriented x3, no limitations, healthy appearing, alert and well nourished HENMT: COMMON NORMALS: normocephalic, atraumatic, hearing grossly normal bilaterally, external ears normal, Normal external nose present, moist oral mucous membranes and oropharynx normal HEAD & SCALP: normocephalic and atraumatic NOSE: Normal external nose present EXTERNAL EAR: Yes external ears normal Neck/C-Spine: COMMON NORMALS: full ROM, no lymphadenopathy, supple, no meningeal signs, no JVD and Thyroid normal THYROID: Thyroid normal Chest: COMMONS NORMALS: normal inspection of the chest; negative for normal palpation of entire chest wall (Palpation of left chest wall reproduces pain) Resp: COMMON NORMALS: normal respiratory effort, No retractions, No use of accessory muscles and clear to auscultation bilaterally AUSCULTATION: clear to auscultation bilaterally Cardio: COMMON NORMALS: no JVD, regular rate, regular rhythm, S1 normal heart sound present, S2 normal heart sound present, No gallops present (Cardio), No clicks present (Cardio), No murmurs present (Cardio) and No rub (Cardio) RATE: regular rate RHYTHM: regular rhythm HEART SOUNDS: S1 normal heart sound present and S2 normal heart sound present GI: COMMON NORMALS: Normal to inspection, nondistended, normoactive bowel sounds present, Soft to palpation, non-tender, No hepatosplenomegaly present and no masses PALPATION: Yes Soft to palpation and Yes No hepatosplenomegaly present Neuro: COMMON NORMALS: patient oriented x3 SENSORIUM/ORIENTATION: Yes alert MENINGEAL SIGNS: Yes no meningeal signs Course Vital Signs: Vital signs: Vital Signs Temperature 98.0 F 04/10/23 18:35 Pulse Rate 82 04/10/23 21:07 Respiratory Rate 26 H 04/10/23 21:07 Blood Pressure 129/80 04/10/23 21:07 Pulse Oximetry 96 04/10/23 21:07 Oxygen Delivery Me thod Room Air 04/10/23 20:24 MDM - Chest Pain Medical Decision Making Patient presents to the ER and was worked up in a typical cardiac fashion with serial EKGs, serial enzymes, chest x-ray, all of which showed no acute coronary cause of her chest pain. Patient was given 30 mg Toradol IV which helped with the pain. Pain was reproducible with palpation of the left chest wall. Is thought this is noncardiac in nature and it is more chest wall pain. Patient be discharged home. To follow-up with her family practice physician within next 7 to 10 days for further evaluation and treatment. Differential Diagnosis Unlikely acute massive pulmonary embolism, acute respiratory failure, acute myocardial infarction, cardiac arrest or sudden cardiac Medical Records I reviewed the patient's medical records. Lab Data I reviewed the patient's lab results. 04/10/23 18:52 04/10/23 18:52 Radiology Impressions Chest X-Ray 04/10/23 18:41 IMPRESSION: No acute findings. Laboratory Results WBC 8.56 10^3/uL (3.29-11.43) 04/10/23 18:52 RBC 4.40 10^6/uL (3.85-5.65) 04/10/23 18:52 Hgb 13.80 g/dL (11.27-16.99) 04/10/23 18:52 Hct 40.5 % (36-47) 04/10/23 18:52 MCV 92.0 fl (85-98) 04/10/23 18:52 MCH 31.4 pg (27-33) 04/10/23 18:52 MCHC 34.1 g/dL (30-55) 04/10/23 18:52 RDW 13.1 % (12.1-15.1) 04/10/23 18:52 Plt Count 329 10^3/cmm (157-399) 04/10/23 18:52 MPV 8.9 fL (7.4-10.4) 04/10/23 18:52 Neut % (Auto) 41.2 % 04/10/23 18:52 Lymph % (Auto) 46.3 % 04/10/23 18:52 [place] % (Auto) 7.8 % 04/10/23 18:52 Eos % (Auto) 3.4 % 04/10/23 18:52 Baso % (Auto) 1.2 % 04/10/23 18:52 Neut # (Auto) 3.53 10^3/uL (1.8-7.7) 04/10/23 18:52 Lymph # (Auto) 4.0 10^3/uL (0.8-4.8) 04/10/23 18:52 [place] # (Auto) 0.7 10^3/uL (0.2-0.9) 04/10/23 18:52 Eos # (Auto) 0.3 10^3/uL (0.0-0.8) 04/10/23 18:52 Baso # (Auto) 0.1 10^3/uL (0.0-0.1) 04/10/23 18:52 Nucleated RBC % (auto) 0 % 04/10/23 18:52 Nucleated RBCs # 0.0 /100WBC 04/10/23 18:52 Sodium 137 mmol/L (136-145) 04/10/23 18:52 Potassium 3.8 mmol/L (3.5-5.1) 04/10/23 18:52 Chloride 101 mmol/L (98-107) 04/10/23 18:52 Carbon Dioxide 26 mmol/L (22-29) 04/10/23 18:52 Anion Gap 13.8 (5-19) 04/10/23 18:52 BUN 11 mg/dL (6-20) 04/10/23 18:52 Creatinine 0.5 mg/dL (0.5-0.9) 04/10/23 18:52 GFR Calculation 134.0 mL/min (90-130) H 04/10/23 18:52 Glucose 101 mg/dL (65-115) 04/10/23 18:52 Calculated Osmolality 284 mOsm/kg (285-295) L 04/10/23 18:52 Calcium 9.6 mg/dL (8.5-10.5) 04/10/23 18:52 Total Bilirubin 0.2 mg/dL (0.15-1.2) 04/10/23 18:52 AST 16 U/L (0-32) 04/10/23 18:52 ALT 12 U/L (0-33) 04/10/23 18:52 Alkaline Phosphatase 91 U/L (35-105) 04/10/23 18:52 Troponin T Baseline < 6 ng/L (0-10) 04/10/23 18:52 Troponin T 120 Minute 6.00 ng/L (0-10) 04/10/23 20:34 Delta Troponin T 0.24632 ABS# (0-10) 04/10/23 20:34 Total Protein 7.0 g/dL (6.6-8.7) 04/10/23 18:52 Albumin 4.4 g/dL (3.5-5.2) 04/10/23 18:52 Globulin 2.6 g/dL (1.3-4.6) 04/10/23 18:52 All radiology interpretation(s) finalized by discharge EKG Data EKG 1: I personally reviewed and interpreted this EKG as follows: EKG interpretation date: 04/10/23 EKG interpretation time: 18:38 Prior EKG tracings: not available for review Interpretation: EKG showed ventricular rate 78 bpm, UT interval 165, QRS duration 86, QTc 397, sinus rhythm, Discharge Plan Discharge Patient Disposition: Home Clinical Impression: Atypical chest pain Condition: Stable Prescriptions: New meloxicam 7.5 mg tablet 7.5 mg PO .Twice daily Qty: 14 0RF No Action hydrocodone-acetaminophen 5-325 mg tablet 1 tab PO Q6H Qty: 20 0RF cyclobenzaprine 10 mg tablet 10 mg PO Q8H Qty: 20 0RF Discharge Orders: Discharge ED (Routine); Ordered 04/10/23 Ordered By: Johan Manzanares Patient Instructions: Noncardiac Chest Pain (ED) Activity Restrictions/Additional Instructions: Your evaluation in the ER did not reveal any acute cardiac cause of your chest pain. Is thought to be noncardiac in nature. Please take all your medicine as prescribed. Please follow-up with your family practice physician within next 7 to 10 days for further evaluation testing. Coding Level of Care Code ED Business And Financial Counsel for Cristobal Pickett
[2023-04-10] MEDS: ketorolac 30 mg/mL INJ IVP (19:12)
[2023-04-10 19:23] LABS: Troponin(5th) Baseline < 6 ng/L (0-10)
[2023-04-10 19:31] LABS: Alanine Aminotransferase 12 U/L (0-33); Albumin Level 4.4 g/dL (3.5-5.2); Alkaline Phosphatase 91 U/L (35-105); Blood Urea Nitrogen 11 mg/dL (6-20); Calcium 9.6 mg/dL (8.5-10.5); Carbon Dioxide 26 mmol/L (22-29); Chloride 101 mmol/L (98-107); Globulin 2.6 g/dL (1.3-4.6); Glucose 101 mg/dL (65-115); Osmolality Calculated 284 mOsm/kg (285-295); Sodium 137 mmol/L (136-145); Total Bilirubin 0.2 mg/dL (0.15-1.2)
[2023-04-10 19:36] LABS: Anion Gap 13.8 (5-19); Aspartate Amino Transferase 16 U/L (0-32); Potassium 3.8 mmol/L (3.5-5.1)
[2023-04-10 20:24] VITALS: BP 99/75; PULSE 60; RESP 22; O2SAT 98
[2023-04-10 20:55] LABS: Troponin 5 2HR Delta 0.00001 ABS# (0-10)
[2023-04-10 21:07] VITALS: BP 129/80; PULSE 82; RESP 26; O2SAT 96
== END 2023-04-10 21:13 | disposition home or self-care (01) ==
PROVIDERS: Emergency Provider Emergency Medicine
DX: R07.89 Other chest pain (principal); Z72.0 Tobacco use
CPT/HCPCS: 36415; 71045; 80053; 84484; 85025; 93005; 96374; 99285; J1885

== ENCOUNTER 2023-07-27 16:01 | Outpatient (CLI) | payer MEDICAID, SELFPAY ==
--- NOTE | 2023-07-27 16:14 | XRR_ITS ---
PROCEDURE INFORMATION: Exam: XR Lumbosacral Spine Exam date and time: 07/27/2023 4:26 PM Age: 42 years old Clinical indication: Low back pain; Additional info: Chronic back pain m54.9 TECHNIQUE: Imaging protocol: Radiologic exam of the lumbosacral spine. Views: 6 or more views. Including flexion and extension views. COMPARISON: CR (PELVIS, ) 01/11/2023 10:41 AM FINDINGS: Bones/joints: No compression deformity of the vertebral bodies. No spondylolisthesis. Mild narrowing of the L4-L5 and L5-S1 discs consistent with mild degenerative disease. No pars defect. Soft tissues: Unremarkable. Intraperitoneal space: Surgical clips in the right aspect of the pelvis. Other findings: No dynamic instability XR/XR lumbar spine 6V w f/e [id number] IMPRESSION: 1. No pars defect, spondylolisthesis or dynamic instability. 2. Mild degenerative of the lower lumbar spine.
--- NOTE | 2023-07-27 16:15 | XRR_ITS ---
PROCEDURE INFORMATION: Exam: XR Thoracic Spine Exam date and time: 07/27/2023 4:26 PM Age: 42 years old Clinical indication: Pain in thoracic spine; Additional info: Chronic back pain m54.9 TECHNIQUE: Imaging protocol: Radiologic exam of the thoracic spine. Views: 3 views. COMPARISON: CR XR lumbar spine 6V w f/e [id number] 07/27/2023 4:26 PM FINDINGS: Bones/joints: Moderate degenerative disease of the lower cervical spine. Mild multilevel degenerative of the thoracic spine. Soft tissues: Unremarkable. XR/XR thoracic spine 3V* [id number] IMPRESSION: No compression deformity or spondylolisthesis. Mild degenerative disease of the thoracic spine.
== END 2023-07-27 16:02 | disposition home or self-care (01) ==
LOC: RAD 16:02
PROVIDERS: Visit Provider Family Medicine
DX: M54.9 Dorsalgia, unspecified (principal)
CPT/HCPCS: 72072; 72114

== ENCOUNTER → 2023-08-29 08:44 | Outpatient (CLI) | payer MEDICAID, SELFPAY ==
--- NOTE | 2023-08-29 08:45 | MM_ITS ---
WS: [id number] VIEWS: MLO and CC views both breasts. 3D digital tomosynthesis is also included in this exam. No priors. Findings: There was no sign of mass, architectural distortion or suspicious calcification in either breast. Asy mmetric density in the upper outer quadrant of the LEFT breast most likely a hamartoma. There are sca ttered areas of fibroglandular density MM/[place] [id number] Impression: BI-RADS: 2-Benign finding. FOLLOW-UP: 1 Year Follow-up This mammogram was also analyzed by the Computer Aided Detection System R2 Imag e Mine Inspector.
== END | disposition home or self-care (01) ==
LOC: RAD 08:43
PROVIDERS: PCP Family Medicine; Visit Provider Family Medicine
DX: Z12.31 Encounter for screening mammogram for malignant neoplasm of breast (principal)
CPT/HCPCS: 77063; 77067

== ENCOUNTER 2023-10-16 07:50 | Emergency (ER) | payer MEDICAID, SELFPAY ==
--- NOTE | 2023-10-16 07:54 | XR_ITS ---
WS: [id number] XR foot LT min 3V* [id number] REASON FOR EXAM: trauma FINDINGS: No acute fracture or dislocation. Mild valgus deformity of the first MCP joint with mild varus deformity of the first tarsal metatarsal joint. Joint spaces of the forefoot, midfoot, and hindfoot are intact and relatively well preserved. Moderate anterior calcaneal enthesophyte. XR/XR foot LT min 3V* [id number] IMPRESSION: No acute abnormality. Mild hallux valgus. Calcaneal enthesophyte.
[2023-10-16 08:06] VITALS: PULSE 73; TEMP 36.6; O2SAT 98; BMI 27.4
--- NOTE | 2023-10-16 08:37 | ED_ITS ---
HPI - Extremity Problem General: Chief complaint: Extremity Injury, Lower Stated complaint: Left fott injury Time Seen by Provider: 10/16/23 07:52 History of Present Illness: 42-year-old female who presents to the e mergency room with complaint of left foot pain. She is carrying a table and dropped it on the dorsum of her left foot she has some mild swelling and bruising she has been able to bear weight this is more sore this morning than when she first did it last evening. No other injuries PFSH ED PFSH: Medical History (Updated 10/16/23 @ 08:45 by Desmond Fung DO) Asthma Surgical History H/O tubal ligation Social History Smoking and tobacco/nicotine status: current every day tobacco/nicotine user Current gender identity: Female Physical Exam Narrative: EXAM NARRATIVE: Examination of the left foot and ankle ankle is without any swelling or abnormality ligaments intact over the dorsal left foot overlying the first second and third metatarsals there are some mild bruising and swelling no deformity dorsalis pedis posterior tibialis pulses are palpable neurovascularly the extremity is intact distally to the toes. No abrasions or lacerations Course Vital Signs: Vital signs: Vital Signs Temperature 97.9 F 10/16/23 08:06 Pulse Rate 72 10/16/23 09:00 Blood Pressure 115/77 10/16/23 09:00 Pulse Oximetry 97 10/16/23 09:00 Oxygen Delivery Me thod Room Air 10/16/23 08:39 MDM - Extremity (Nontraumatic) Medical Decision Making Soft tissue bruising no acute fracture on the x-ray. Discharge home ice elevate anti-inflammatories as needed follow-up with primary care if not improving Lab Data Radiology Impressions Foot X-Ray 10/16/23 07:54 IMPRESSION: No acute abnormality. Mild hallux valgus. Calcaneal enthesophyte. All radiology interpretation(s) finalized by discharge Discharge Plan Discharge Patient Disposition: Home Clinical Impression: Acute pain of left foot Clinical Impression: (Ruled Out): H/O tubal ligation Condition: Stable Prescriptions: New diclofenac sodium 75 mg tablet,delayed release (DR/EC) 75 mg PO Q12H PRN (Reason: pain) Qty: 20 0RF Discontinued meloxicam 7.5 mg tablet 7.5 mg PO .Twice daily Qty: 14 0RF No Action hydrocodone-acetaminophen 5-325 mg tablet 1 tab PO Q6H Qty: 20 0RF cyclobenzaprine 10 mg tablet 10 mg PO Q8H Qty: 20 0RF Discharge Orders: Discharge ED (Routine); Ordered 10/16/23 Ordered By: Desmond Fung Referrals: Ivelisse Fraire DO [Primary Care Provider] - Discharge Diet: Usual diet Discharge Activity: Increase activity as tolerated Patient Instructions: Opioid Safety, Pain Management Activity Restrictions/Additional Instructions: Thank you for choosing [facility] for your healthcare needs today. It is very important that you follow up as instructed or that you return to the Emergency Department should you have concerns or if your condition changes or worsens in any way. You were seen in the emergency room for left foot pain. X-rays did not show any acute fracture. Weightbearing as tolerated you can use diclofenac as needed for pain elevate and ice if symptoms persist or worsen recheck Coding Level of Care Code ED Distribution Transformer Assembler for Cristobal Pickett
[2023-10-16 08:39] VITALS: BP 108/87; PULSE 72; O2SAT 99
[2023-10-16 09:00] VITALS: BP 115/77; PULSE 72; O2SAT 97
== END 2023-10-16 09:01 | disposition home or self-care (01) ==
PROVIDERS: Emergency Provider Family Medicine; PCP Family Medicine
DX: M79.672 Pain in left foot (principal); Z72.0 Tobacco use
CPT/HCPCS: 73630; 99283

== ENCOUNTER 2023-11-11 22:13 | Emergency (ER) | payer MEDICAID, SELFPAY ==
[2023-11-11 22:16] VITALS: BP 130/85; PULSE 105; RESP 17; O2SAT 96; BMI 29.2
--- NOTE | 2023-11-11 22:27 | W.ED.ABDPA2 ---
HPI - Abdominal Pain General: Chief Complaint: Abdominal Pain Stated Complaint: rectal bleeding for a week Time Seen by Provider: 11/11/23 22:24 History of Present Illness: 43-year-old female comes in today for complaints of lower abdominal pain and blood in stool. Patient reports she has had blood in the stool on and off for several months now. Patient has been seen at a health clinic and they have been trying to get her in for colonoscopy. Today patient had some distention in the abdomen and discomfort which prompted her to come to the ER. Patient appears nontoxic. Patient appears in no pain. Patient admits to smoking tobacco and occasional alcohol use. Patient denies any marijuana or methamphetamine use. Patient reports no chronic medication prescription use. Associated Symptoms: Reports hematochezia Related Data Previous Rx's Medication Instructions Recorded cyclobenzaprine 10 mg tablet 10 mg PO Q8H #20 tabs 01/11/23 hydrocodone 5 mg-acetaminophen 325 1 tab PO Q6H pain #20 tabs 01/11/23 mg tablet diclofenac sodium 75 mg 75 mg PO Q12H PRN pain #20 tabs 10/16/23 tablet,delayed release Allergies Allergy/AdvReac Type Severity Reaction Status Date / Time lamotrigine [From Lamictal] Allergy ALGY-Rash Verified 11/11/23 22:19 Review of Systems General: Reports: 10 or more systems reviewed and unremarkable except in HPI and below GI: Reports: hematochezia PFS ED PFSH: Medical History (Updated 11/11/23 @ 23:14 by RAVEN Christine) Asthma Surgical History H/O tubal ligation Social History Smoking and tobacco/nicotine status: current every day tobacco/nicotine user Current gender identity: Female Physical Exam Const: COMMON NORMALS: alert HENMT: COMMON NORMALS: normocephalic HEAD & SCALP: normocephalic Neck/C-Spine: COMMON NORMALS: full ROM Resp: COMMON NORMALS: normal respiratory effort and clear to auscultation bilaterally AUSCULTATION: clear to auscultation bilaterally Cardio: COMMON NORMALS: regular rate RATE: regular rate GI: COMMON NORMALS: Soft to palpation AUSCULTATION: Yes normoactive bowel sounds PALPATION: Yes Soft to palpation and Yes Tenderness to palpation present (GI) (Mild) RECTAL EXAM: visual inspection normal and normal sphincter tone Neuro: SENSORIUM/ORIENTATION: Yes alert Skin: COMMON NORMALS: turgor normal NARRATIVE SKIN EXAM: Skin color pink GENERAL SKIN EXAM: turgor normal Course Vital Signs: Vital signs: Vital Signs Pulse Rate 98 11/11/23 22:46 Respiratory Rate 14 11/11/23 22:46 Blood Pressure 134/106 11/11/23 22:46 Pulse Oximetry 98 11/11/23 22:46 Oxygen Delivery Me thod Room Air 11/11/23 22:46 MDM - Abdominal Pain Medical Decision Making 43-year-old female comes in today for complaints of abdominal bloating and blood in stool. Patient appears no acute distress. Respirations are even lungs are clear to auscultation. Vital signs are normal. Differential diagnosis includes but not limited to GI bleed, internal hemorrhoids, cirrhosis, hematochezia. CBC had a normal blood cell count. CMP was unremarkable. PT and INR and PTT were normal. Patient needs to have a colonoscopy. We will arrange for patient to follow-up with surgeon for colonoscopy and upper endoscopy as warranted. Patient reported understanding of care plan and need for follow-up or return to the ER for worsening symptoms. Lab Data 11/11/23 22:42 11/11/23 22:42 Labs/Radiology: Laboratory Results WBC 10.69 10^3/uL (3.29-11.43) 11/11/23 22:42 RBC 4.62 10^6/uL (3.85-5.65) 11/11/23 22:42 Hgb 14.40 g/dL (11.27-16.99) 11/11/23 22:42 Hct 42.1 % (36-47) 11/11/23 22:42 MCV 91.1 fl (85-98) 11/11/23 22:42 MCH 31.2 pg (27-33) 11/11/23 22:42 MCHC 34.2 g/dL (30-55) 11/11/23 22:42 RDW 13.2 % (12.1-15.1) 11/11/23 22:42 Plt Count 342 10^3/cmm (157-399) 11/11/23 22:42 MPV 9.0 fL (7.4-10.4) 11/11/23 22:42 Neut % (Auto) 53.4 % 11/11/23 22:42 Lymph % (Auto) 35.1 % 11/11/23 22:42 Latimer % (Auto) 8.4 % 11/11/23 22:42 Eos % (Auto) 2.0 % 11/11/23 22:42 Baso % (Auto) 0.8 % 11/11/23 22:42 Neut # (Auto) 5.71 10^3/uL (1.8-7.7) 11/11/23 22:42 Lymph # (Auto) 3.8 10^3/uL (0.8-4.8) 11/11/23 22:42 Latimer # (Auto) 0.9 10^3/uL (0.2-0.9) 11/11/23 22:42 Eos # (Auto) 0.2 10^3/uL (0.0-0.8) 11/11/23 22:42 Baso # (Auto) 0.1 10^3/uL (0.0-0.1) 11/11/23 22:42 Nucleated RBC % (auto) 0 % 11/11/23 22:42 Nucleated RBCs # 0.0 /100WBC 11/11/23 22:42 PT 12.90 SECONDS (12.1-14.9) 11/11/23 22:42 INR 0.94 (0.8-1.2) 11/11/23 22:42 APTT 27.3 SECONDS (23.9-36.7) 11/11/23 22:42 Sodium 137 mmol/L (136-145) 11/11/23 22:42 Potassium 3.4 mmol/L (3.5-5.1) L 11/11/23 22:42 Chloride 99 mmol/L (98-107) 11/11/23 22:42 Carbon Dioxide 20 mmol/L (22-29) L 11/11/23 22:42 Anion Gap 21.4 (5-19) H 11/11/23 22:42 BUN 17 mg/dL (6-20) 11/11/23 22:42 Creatinine 0.7 mg/dL (0.5-0.9) 11/11/23 22:42 GFR Calculation 90.5 mL/min (90-130) 11/11/23 22:42 Glucose 106 mg/dL (65-115) 11/11/23 22:42 Calculated Osmolality 286 mOsm/kg (285-295) 11/11/23 22:42 Calcium 9.3 mg/dL (8.5-10.5) 11/11/23 22:42 Total Bilirubin 0.4 mg/dL (0.15-1.2) 11/11/23 22:42 AST 14 U/L (0-32) 11/11/23 22:42 ALT 11 U/L (0-33) 11/11/23 22:42 Alkaline Phosphatase 105 U/L (35-105) 11/11/23 22:42 Total Protein 7.5 g/dL (6.6-8.7) 11/11/23 22:42 Albumin 4.4 g/dL (3.5-5.2) 11/11/23 22:42 Globulin 3.1 g/dL (1.3-4.6) 11/11/23 22:42 No radiology studies performed this visit Discharge Plan Discharge Patient Disposition: Home Clinical Impression: Hematochezia Condition: Stable Prescriptions: No Action hydrocodone-acetaminophen 5-325 mg tablet 1 tab PO Q6H Qty: 20 0RF cyclobenzaprine 10 mg tablet 10 mg PO Q8H Qty: 20 0RF diclofenac sodium 75 mg tablet,delayed release (DR/EC) 75 mg PO Q12H PRN (Reason: pain) Qty: 20 0RF Discharge Orders: Discharge ED (Routine); Ordered 11/11/23 Ordered By: Narciso Bernabe Discharge Diet: Usual diet Discharge Activity: Increase activity as tolerated Patient Instructions: Melena (ED) Activity Restrictions/Additional Instructions: Activity as tolerated. Drink plenty of water and fluids. Eat a healthy diet with plenty of fiber. Avoid straining with stools. Case management will contact you regarding his follow-up with surgeon for colonoscopy and endoscopy procedures. Return to ER for worsening symptoms such as high fever greater than 100.4, increasing severe pain, inability to hold fluids down, or feeling like you are going to pass out. Coding Level of Care Code ED Splicing Machine Operator Automatic for Cristobal Pickett
[2023-11-11 22:46] VITALS: BP 134/106; PULSE 98; RESP 14; O2SAT 98
[2023-11-11 22:48] LABS: Basophils # 0.1 10^3/uL (0.0-0.1); Basophils % 0.8 %; Eosinophils # 0.2 10^3/uL (0.0-0.8); Hematocrit 42.1 % (36-47); Lymphocytes # 3.8 10^3/uL (0.8-4.8); Lymphocytes % 35.1 %; Mean Corpuscular HGB Conc 34.2 g/dL (30-55); Mean Corpuscular Hemoglobin 31.2 pg (27-33); Mean Corpuscular Volume 91.1 fl (85-98); Monocytes # 0.9 10^3/uL (0.2-0.9); Monocytes % 8.4 %; Neutrophils # 5.71 10^3/uL (1.8-7.7); Neutrophils % 53.4 %; Nucleated Red Blood Cells % 0 %; Platelet Count 342 10^3/cmm (157-399); Red Blood Count 4.62 10^6/uL (3.85-5.65); Red Cell Distribution Width 13.2 % (12.1-15.1); White Blood Count 10.69 10^3/uL (3.29-11.43)
[2023-11-11 23:02] LABS: INR 0.94 (0.8-1.2)
[2023-11-11 23:03] LABS: Partial Thromboplastin Time 27.3 SECONDS (23.9-36.7)
[2023-11-11 23:07] LABS: Alanine Aminotransferase 11 U/L (0-33); Albumin Level 4.4 g/dL (3.5-5.2); Alkaline Phosphatase 105 U/L (35-105); Anion Gap 21.4 (5-19); Aspartate Amino Transferase 14 U/L (0-32); Blood Urea Nitrogen 17 mg/dL (6-20); Calcium 9.3 mg/dL (8.5-10.5); Carbon Dioxide 20 mmol/L (22-29); Chloride 99 mmol/L (98-107); Creatinine Clr Calc Pharmacy 105.9568; Globulin 3.1 g/dL (1.3-4.6); Glomerular Filtration Rate 90.5 mL/min (90-130); Glucose 106 mg/dL (65-115); Osmolality Calculated 286 mOsm/kg (285-295); Potassium 3.4 mmol/L (3.5-5.1); Sodium 137 mmol/L (136-145); Total Bilirubin 0.4 mg/dL (0.15-1.2); Total Protein 7.5 g/dL (6.6-8.7)
[2023-11-11 23:20] VITALS: BP 114/96; PULSE 78; RESP 16; O2SAT 99
[2023-11-11 23:21] VITALS: BP 114/96; PULSE 78; RESP 16; O2SAT 99
--- NOTE | 2023-11-12 07:35 | DCPLANNER ---
messaged gen surg for er f/u
== END 2023-11-11 23:26 | disposition home or self-care (01) ==
PROVIDERS: Emergency Provider Nurse Practitioner Family
DX: K92.1 Melena (principal); Z72.0 Tobacco use
CPT/HCPCS: 36415; 80053; 85025; 85610; 85730; 99283

== ENCOUNTER 2023-12-24 16:05 | Emergency (ER) | payer MEDICAID, SELFPAY ==
--- NOTE | 2023-12-24 16:05 | XRR_ITS ---
PROCEDURE INFORMATION: Exam: XR Right Knee Exam date and time: 12/24/2023 4:42 PM Age: 43 years old Clinical indication: Pain; Knee; Right; Additional info: Injury TECHNIQUE: Imaging protocol: Radiologic exam of the right knee. Views: 3 views. COMPARISON: No relevant prior studies available. FINDINGS: Bones/joints: Normal. Soft tissues: Normal. XR/XR knee RT 3V* [id number] IMPRESSION: No acute findings.
[2023-12-24 16:30] VITALS: BP 123/87; PULSE 86; RESP 18; TEMP 36.8; O2SAT 97; BMI 28.3
--- NOTE | 2023-12-24 16:38 | W.ED.EXTPRO ---
HPI - Extremity Problem General: Chief complaint: Extremity Injury, Lower Stated complaint: R knee pain Time Seen by Provider: 12/24/23 16:08 History of Present Illness: 43-year-old female presents emergency room complaining of several days of right knee pain no precipitating injury that she can recall moderate swelling. Has been compressively worse. No previous injury or surgery. Has become progressively worse to the point where with almost any activity she has difficulty with pain. No falls or other trauma. Related Data Home Medications Medication Instructions Recorded Confirmed albuterol sulfate 90 mcg/actuation inhalation .Q4-6 hours 11/23/23 11/23/23 aerosol inhaler (Ventolin HFA) Previous Rx's Medication Instructions Recorded pantoprazole 40 mg tablet,delayed 40 mg PO BID 6 weeks #84 tabs 11/23/23 release (Protonix) diclofenac sodium 75 mg 75 mg PO Q12H PRN pain #20 tabs 12/24/23 tablet,delayed release Allergies Allergy/AdvReac Type Severity Reaction Status Date / Time lamotrigine [From Lamictal] Allergy ALGY-Rash Verified 12/24/23 16:33 Review of Systems Musc: Reports: joint pain and joint swelling [facility] ED PFSH: Medical History Asthma Surgical History H/O tubal ligation Family History Mother Cancer unknown Grandfather Cancer unknown what kind Social History Smoking and tobacco/nicotine status: current every day tobacco/nicotine user Alcohol intake: current Alcohol intake frequency: holidays/special occasions only Current gender identity: Female Physical Exam Extremity: OTHER: Moderate joint effusion no ligamentous instability or laxity no ulcerations lacerations deformities. Drawer and Kyaw's test are negative however there is somewhat limited due to guarding by the patient. Negative Homans no fullness in the popliteal fossa. No significant swelling of the leg. No signs of cellulitis. Course Vital Signs: Vital signs: Vital Signs Temperature 98.3 F 12/24/23 16:30 Pulse Rate 83 12/24/23 16:44 Respiratory Rate 16 12/24/23 16:44 Blood Pressure 123/87 12/24/23 16:44 Pulse Oximetry 99 12/24/23 16:44 Oxygen Delivery Me thod Room Air 12/24/23 16:44 MDM - Extremity (Nontraumatic) Medical Decision Making Acute right knee pain Limited exam secondary to patient's discomfort currently. Will discharge her home on diclofenac knee immobilizer and crutches nonweightbearing ice as needed set her up for outpatient follow-up with orthopedics. Return if is further problems. XR interpretation done by ED provider, pending radiology final review ED provider radiology interpretation(s): Right knee no acute fractures mild joint effusion normal alignment of the joint patella intact Discharge Plan Discharge Patient Disposition: Home Clinical Impression: Knee pain, right Condition: Stable Prescriptions: New diclofenac sodium 75 mg tablet,delayed release (DR/EC) 75 mg PO Q12H PRN (Reason: pain) Qty: 20 0RF No Action albuterol sulfate [Ventolin HFA] 90 mcg/actuation HFA aerosol inhaler inhalation .Q4-6 hours pantoprazole [Protonix] 40 mg tablet,delayed release (DR/EC) 40 mg PO BID 42 Days Qty: 84 1RF Discharge Orders: Discharge ED (Routine); Ordered 12/24/23 Ordered By: Desmond Fung Discharge Diet: Usual diet Discharge Activity: Increase activity as tolerated Patient Instructions: Opioid Safety, Pain Management Activity Restrictions/Additional Instructions: Thank you for choosing [facility] for your healthcare needs today. It is very important that you follow up as instructed or that you return to the Emergency Department should you have concerns or if your condition changes or worsens in any way. You are seen today for right knee pain. Plain x-ray did not show any acute fractures. We have placed in a knee immobilizer and nonweightbearing on crutches given diclofenac to use as needed for pain case making machine operator will make arrangements for you to follow-up with orthopedics for further evaluation. Coding Level of Care Code ED Curtain Roller Assembler for Cristobal Pickett
[2023-12-24 16:44] VITALS: BP 123/87; PULSE 83; RESP 16; O2SAT 99
[2023-12-24 17:09] VITALS: BP 121/78; PULSE 81; O2SAT 98
--- NOTE | 2023-12-25 08:18 | DCPLANNER ---
Message sent to Ortho for RT knee pain.
== END 2023-12-24 17:10 | disposition home or self-care (01) ==
PROVIDERS: Emergency Provider Family Medicine
DX: M25.561 Pain in right knee (principal); Z72.0 Tobacco use
CPT/HCPCS: 29530; 73562; 99283; E0114

== ENCOUNTER 2023-12-31 10:07 | Day surgery (SDC) | payer MEDICAID, SELFPAY ==
[2023-12-31 10:40] VITALS: BP 130/95; PULSE 78; RESP 18; TEMP 36.3; O2SAT 96; BMI 28.3
[2023-12-31] MEDS: sodium chloride 0.9% 1,000 ML 30 ML IV (10:48)
--- NOTE | 2023-12-31 10:56 | P.ANESASSM_ITS ---
Pre-Anesthetic Assessment Height/Weight: Height 1.65 m Weight 77.111 kg Temp Pulse Resp BP Pulse Ox O2 Del Method 97.4 F L 78 18 130/95 96 Room Air 12/31/23 10:40 12/31/23 10:40 12/31/23 10:40 12/31/23 10:40 12/31/23 10:40 12/31/23 10:40 Preop Diagnosis: Hematochezia, GERD Operation Date: 12/31/23 11:30 Proposed Procedures p EGD / 53456, 39636, G0105, K92.1, K21.9(Not Applicable) - Phuc Case MD s Colonoscopy(Not Applicable) - Phuc Case MD Familial anesthetic complications: awareness during PPBTL. Was Beta Shanice taken within 24 hours: N/A Was Clonidine taken within 24 hours: N/A Last intake: Intake Last Liquid Date 12/30/23 Last Liquid Time 22:00 Last Solid Date 12/29/23 Last Solid Time 19:00 Social Alcohol (few times every 2 weeks.) and Tobacco Marijuana at [address] Submandibular: within normal limits Cervical ROM: within normal limits Mallampati: Class II Dentition: loose (lower front tooth very loose patient mobilized tooth for MEDIA RELATIONS MANAGER, patient educated on risk of dislodging tooth.) Pulmonary Asthma CV/HEM None reported None reported Hepatic None reported GI Gastroesophageal Reflux Disease Metabolic None reported Musc/skel None reported Neuropsych Anxiety and Depression Anesthetic Plan ASA status: 3 Medications/Allergies Home Medications Medication Instructions Recorded Confirmed Last Taken Type albuterol sulfate 90 mcg/actuation 1 inh inhalation .Q4-6 hours PRN 11/23/23 12/31/23 12/29/23 History aerosol inhaler (Ventolin HFA) Shortness Of Breath Or Wheezing diclofenac sodium 75 mg 75 mg PO Q12H PRN pain #20 tabs 12/24/23 12/28/23 12/29/23 Rx tablet,delayed release Allergies Allergy/AdvReac Type Severity Reaction Status Date / Time lamotrigine [From Lamictal] Allergy ALGY-Rash Verified 12/28/23 10:51 Current Medications Generic Name Dose Route Start Last Admin Trade Name Freq PRN Reason Stop Dose Admin Sodium Chloride 1,000 mls @ 30 mls/hr 12/31/23 10:30 12/31/23 10:48 Sodium Chloride 0.9% IV 30 mls/hr .Q24H FARIDEH Administration PFSH Anesthesia Medical History Asthma Surgical History H/O tubal ligation Family History Mother Cancer unknown Grandfather Cancer unknown what kind Social History Smoking and tobacco/nicotine status: current every day tobacco/nicotine user Alcohol intake: current Alcohol intake frequency: holidays/special occasions only Current gender identity: Female Data Anesthesia Cardiac Studies: No Data to Display
--- NOTE | 2023-12-31 11:17 | W.PM.OPSUD ---
Surgery/Procedure H&P Update DATE OF PROCEDURE: December 31, 2023 DATE H&P PERFORMED: 11/23/23 H&P UPDATE INFORMATION: I have reviewed H&P completed within last 30 days, I have examined patient prior to procedure and No changes to prior documentation PREOP DIAGNOSIS: Hematochezia, GERD PLANNED PROCEDURE: Operation Date: 12/31/23 11:30 Proposed Procedures p EGD / 99192, 78189, G0105, K92.1, K21.9(Not Applicable) - Phuc Case MD s Colonoscopy(Not Applicable) - Phuc Case MD
--- NOTE | 2023-12-31 11:42 | W.PM.OPSFHP ---
Same Day Surgery H&P Indication for Procedure/HPI DATE OF PROCEDURE: December 31, 2023 CHIEF COMPLAINT/INDICATIONFOR SURGICAL PROCEDURE: GIB PREOP DIAGNOSIS: Hematochezia, GERD PLANNED PROCEDURE: Operation Date: 12/31/23 11:30 Proposed Procedures p EGD / 22804, 33308, G0105, K92.1, K21.9(Not Applicable) - Phuc Case MD s Colonoscopy(Not Applicable) - Phuc Case MD Medications/Allergies* Home Medications Medication Instructions Recorded Confirmed Type albuterol sulfate 90 mcg/actuation 1 inh inhalation .Q4-6 hours PRN 11/23/23 12/31/23 History aerosol inhaler (Ventolin HFA) Shortness Of Breath Or Wheezing Allergies/Adverse Reactions Allergy/AdvReac Type Severity Reaction Status Date / Time lamotrigine [From Lamictal] Allergy ALGY-Rash Verified 12/28/23 10:51 Current Medications: Generic Name Dose Route Start Last Admin Trade Name Freq PRN Reason Stop Dose Admin Sodium Chloride 1,000 mls @ 30 mls/hr 12/31/23 10:30 12/31/23 10:48 Sodium Chloride 0.9% IV 30 mls/hr .Q24H FARIDEH Administration Pertinent History/Comorbid Conditions* Medical History (Updated 12/24/23 @ 16:59 by Desmond Fung DO) Asthma Surgical History (Updated 08/04/19 @ 20:18 by Norma Johnson) H/O tubal ligation Family History (Updated 11/23/23 @ 08:04 by DISHA Fitzgerald) Cancer Mother unknown Grandfather unknown what kind Social History Smoking and tobacco/nicotine status: current every day tobacco/nicotine user Alcohol intake: current Alcohol intake frequency: holidays/special occasions only Current gender identity: Female Pertinent Exam Findings alert, oriented x 3, clear to auscultation bilaterally, regular rate & rhythm and procedure specific exam findings abdomen soft, nt, nd Recommendations Surgery/Procedure today Other Plans: EGD & colonoscopy today Coding Level of Care Code Acute Code for Chg Fwd Time Spent (min) 30
[2023-12-31 12:27] VITALS: BP 110/75; PULSE 93; RESP 18; TEMP 36.1; O2SAT 88
[2023-12-31 12:38] VITALS: BP 115/74; PULSE 88; RESP 16; O2SAT 96
--- NOTE | 2023-12-31 13:00 | ANE.PACU2 ---
Inpatient post-anesthesia follow up: Airway intact: Yes Vital signs: Temperature 97 F Pulse Rate 88 Respiratory Rate 16 Blood Pressure 115/74 Pulse Oximetry 96 Oxygen Delivery Me thod Room Air Oxygen Flow Rate 4 Fraction of Inspir ed Oxygen Hydration adequate: Yes Nausea and vomiting: No Pain level: 1 Mental status: Baseline
== END 2023-12-31 13:00 | disposition home or self-care (01) ==
PROVIDERS: PCP Family Medicine; Visit Provider Student in an Organized Health Care Education/Training Program
PROC: 0DJ08ZZ Inspection of Upper Intestinal Tract, Via Natural or Artificial Opening Endoscopic (ICD-10-PCS; CPT 43235; principal; 2023-12-31 11:30)
PROC: 0DJD8ZZ Inspection of Lower Intestinal Tract, Via Natural or Artificial Opening Endoscopic (ICD-10-PCS; CPT 45378; 2023-12-31 11:30)
DX: K92.1 Melena (principal); K21.9 Gastro-esophageal reflux disease without esophagitis; J45.909 Unspecified asthma, uncomplicated; F17.200 Nicotine dependence, unspecified, uncomplicated; K29.70 Gastritis, unspecified, without bleeding
CPT/HCPCS: 43239; 45380; 88305; J2704; J7030

== ENCOUNTER → 2024-01-17 08:46 | Outpatient (BNVA) | payer MEDICAID, SELFPAY | PROVIDERS: PCP Family Medicine; Visit Provider Physician Assistant | DX: M25.561 Pain in right knee (principal); M23.303 Other meniscus derangements, unspecified medial meniscus, right knee; M17.11 Unilateral primary osteoarthritis, right knee | CPT/HCPCS: 73560; 73565 ==

== ENCOUNTER 2024-05-15 11:31 | Emergency (ER) | payer MEDICAID, SELFPAY ==
[2024-05-15 12:06] VITALS: BP 111/81; PULSE 82; RESP 20; TEMP 36.7; O2SAT 96; BMI 27.9
[2024-05-15 12:18] VITALS: BP 113/93; PULSE 71; O2SAT 97
[2024-05-15] MEDS: lidocaine 1% 10 ML INJ SUBCUT (12:31)
--- NOTE | 2024-05-15 12:47 | ED_ITS ---
HPI - Skin/Abscess/Foreign Bdy General: Chief complaint: Skin/Abscess/Foreign Body Stated complaint: Abcess on next Time Seen by Provider: 05/15/24 12:16 Source: patient Mode of arrival: ambulatory Limitations: no limitations History of Present Illness: 43-year-old female states she has had an abscess to the right posterior neck over the last few weeks she states she has been on oral antibiotics has seen her PCP but has not had it drained she states it has worsens and hard painful to touch. She rates her pain a 7 out of 10. Denies any fever Associated symptoms: Deny chills, fever(s), nausea or vomiting Related Data Home Medications ?Medication ?Instructions ?Recorded ?Confirmed cephalexin 500 mg capsule 500 mg PO TID 05/15/2405/15 Previous Rx's ?Medication ?Instructions ?Recorded sulfamethoxazole 800 1 tab PO BID 10 days #20 tab s 05/15/24 mg-trimethoprim 160 mg tablet (Bactrim DS) Allergies Allergy/AdvReac Type Severity Reaction Status Date / Time lamotrigine (From Lamictal) Allergy ALGY-Rash Verified 01/17/24 08:55 Review of Systems Const: Denies: fever(s), chills, body aches or change in appetite ENMT: Denies: throat pain or dental pain Card: Denies: chest pain Resp: Denies: dyspnea GI: Denies: abdominal pain, nausea, vomiting or diarrhea Musc: Denies: neck pain or back pain Skin/Breast: Reports: erythema; Denies: rash Neuro: Denies: headache(s) PFS ED PFSH: Medical History Asthma Surgical History H/O tubal ligation Family History Mother Cancer unknown Grandfather Cancer unknown what kind Social History Smoking and tobacco/nicotine status: current every day tobacco/nicotine user Alcohol intake: current Alcohol intake frequency: holidays/special occasions only Current gender identity: Female Physical Exam Const: COMMON NORMALS: no acute distress, patient oriented x3 and healthy appearing HENMT: COMMON NORMALS: normocephalic and atraumatic HEAD & SCALP: normocephalic and atraumatic Neck/C-Spine: COMMON NORMALS: full ROM and supple OTHER: 3 cm abscess to right posterior neck Chest: COMMONS NORMALS: normal inspection of the chest Resp: COMMON NORMALS: normal respiratory effort Cardio: COMMON NORMALS: regular rate, regular rhythm and No murmurs present (Cardio) RATE: regular rate RHYTHM: regular rhythm Extremity: COMMON NORMALS: normal to inspection and full ROM Neuro: COMMON NORMALS: patient oriented x3, moves all extremities and no focal motor deficits Psych: COMMON NORMALS: mental status grossly normal, Normal thought process p resent and cooperative THOUGHT PROCESS: Normal thought process present Skin: COMMON NORMALS: no rashes or lesions noted GENERAL SKIN EXAM: no rashes or lesions noted Procedures Abscess I/D Site: neck (posterior) Side (if applicable): right Local Anesthetic: lidocaine 1% Amount of anesthesia used (mL): 5 Technique: incised with #11 blade Irrigation: No Course Vital Signs: Vital signs: Vital Signs Temperature 98.0 F 05/15/24 12:06 Pulse Rate 71 05/15/24 12:18 Respiratory Rate 20 H 05/15/24 12:06 Blood Pressure 113/93 05/15/24 12:18 Pulse Oximetry 97 05/15/24 12:18 Oxygen Delivery Me thod Room Air 05/15/24 12:18 MDM - Skin/Abscess/Foreign Bdy Medicial Decision Making Abscess noted to right posterior neck did incise and drain we will place her on Bactrim she is to do compresses she is to follow-up with PCP return if w orsening. Medical Records I reviewed the patient's medical records. No radiology studies performed this visit Discharge Plan Discharge Patient Disposition: Home Clinical Impression: Abscess of skin or subcutaneous tissue Condition: Stable Prescriptions: New sulfamethoxazole-trimethoprim [Bactrim DS] 800-160 mg tablet 1 tab PO BID 10 Days Qty: 20 0RF No Action cephalexin 500 mg capsule 500 mg PO TID Discharge Orders: Discharge ED (Routine); Ordered 05/15/24 Ordered By: Marquez Ramos Referrals: Ivelisse Fraire DO [Primary Care Provider] - Discharge Diet: Advance as tolerated Discharge Activity: Resume usual activity Patient Instructions: Abscess (ED) Print Language: Vietnamese Coding Level of Care Code ED Jewel Diameter Gauger for Cristobal Pickett
[2024-05-15 12:51] VITALS: BP 114/94; PULSE 86; O2SAT 98
== END 2024-05-15 12:53 | disposition home or self-care (01) ==
PROVIDERS: Emergency Provider Emergency Medicine; PCP Family Medicine
DX: L02.11 Cutaneous abscess of neck (principal); Z72.0 Tobacco use
CPT/HCPCS: 10060; 99283

== ENCOUNTER 2024-05-22 19:29 | Emergency (ER) | payer MEDICAID, SELFPAY ==
[2024-05-22] VITALS (8 sets, daily range): BP systolic 109–123; BP diastolic 72–87; PULSE 74–95; RESP 16–18; TEMP 36.7; O2SAT 92–98; BMI 28.3
--- NOTE | 2024-05-22 19:34 | ECG_ITS ---
[facility] Test Date: 2024-05-22 Pat Name: Candace Gresham Department: Room: Gender: Female Mri Assistant: : 1980 Requested By: Johan Manzanares Order Number: [id number] Hernandez MD: Javier Dillon M.D. Measurements Intervals [place] Rate: 87 P: 74 MO: 157 QRS: 93 QRSD: 82 T: 69 QT: 348 QTc: 419 Interpretive Statements SINUS RHYTHM WITH SINUS ARRHYTHMIA BORDERLINE RIGHT AXIS DEVIATION [QRS AXIS > 90] MINIMAL ST DEPRESSION [0.025+ mV ST DEPRESSION] Compared to ECG 04/10/2023 18:38:55 ST (T wave) deviation now present Electronically Signed On 05-23-2024 19:04:57 CDT by Javier Dillon M.D. [email or web address] [id number]
--- NOTE | 2024-05-22 19:34 | XRR_ITS ---
PROCEDURE INFORMATION: Exam: XR Chest Exam date and time: 05/22/2024 8:15 PM Age: 43 years old Clinical indication: Pain; Chest pressure; Additional info: Chest pain TECHNIQUE: Imaging protocol: Radiologic exam of the chest. Views: 1 view. COMPARISON: CR (CHEST, ) 04/10/2023 6:44 PM FINDINGS: Lungs: Unremarkable. No consolidation. Pleural spaces: Unremarkable. No pleural effusion. No pneumothorax. Heart/Mediastinum: Unremarkable. No cardiomegaly. Bones/joints: Unremarkable. XR/XR chest 1V portable [id number] IMPRESSION: No acute cardiopulmonary process.
--- NOTE | 2024-05-22 19:35 | ECG_ITS ---
[facility] Date: 2024-05-22 Pat Name: Candace Gresham Department: Room: Gender: Female Outpatient Psychiatrist: : 1980 Requested By: Johan Manzanares Order Number: [id number] David MD: Javier Dillon M.D. Measurements Intervals [place] Rate: 83 P: 78 RI: 172 QRS: 91 QRSD: 79 T: 76 QT: 347 QTc: 410 Interpretive Statements SINUS RHYTHM POSSIBLE RIGHT ATRIAL ENLARGEMENT [0.25mV P-WAVE] BORDERLINE RIGHT AXIS DEVIATION [QRS AXIS > 90] Compared to ECG 05/22/2024 19:34:57 Sinus arrhythmia no longer present ST (T wave) deviation no longer present Electronically Signed On 05-23-2024 19:04:50 CDT by Javier Dillon M.D. [id number] [id number]
[2024-05-22 20:39] LABS: Basophils # 0.1 10^3/uL (0.0-0.1); Basophils % 1.2 %; Eosinophils # 0.3 10^3/uL (0.0-0.8); Hematocrit 43.8 % (36-47); Lymphocytes # 3.3 10^3/uL (0.8-4.8); Lymphocytes % 35.2 %; Mean Corpuscular Hemoglobin 30.7 pg (27-33); Mean Corpuscular Volume 90.1 fl (85-98); Mean Platelet Volume 9.3 fL (7.4-10.4); Monocytes # 0.7 10^3/uL (0.2-0.9); Monocytes % 7.3 %; Neutrophils # 5.02 10^3/uL (1.8-7.7); Neutrophils % 53.1 %; Nucleated Red Blood Cells % 0 %; Platelet Count 341 10^3/cmm (157-399); Red Blood Count 4.86 10^6/uL (3.85-5.65); Red Cell Distribution Width 13.2 % (12.1-15.1); White Blood Count 9.45 10^3/uL (3.29-11.43)
[2024-05-22 21:02] LABS: Alanine Aminotransferase 11 U/L (0-33); Albumin Level 4.5 g/dL (3.5-5.2); Alkaline Phosphatase 115 U/L (35-105); Anion Gap 17.9 (5-19); Aspartate Amino Transferase 13 U/L (0-32); Blood Urea Nitrogen 8 mg/dL (6-20); Calcium 9.7 mg/dL (8.5-10.5); Carbon Dioxide 25 mmol/L (22-29); Chloride 101 mmol/L (98-107); Creatinine Clr Calc Pharmacy 121.5818; Globulin 2.7 g/dL (1.3-4.6); Glomerular Filtration Rate 108.1 mL/min (90-130); Glucose 102 mg/dL (65-115); Osmolality Calculated 289 mOsm/kg (285-295); Potassium 3.9 mmol/L (3.5-5.1); Sodium 140 mmol/L (136-145); Total Bilirubin 0.3 mg/dL (0.15-1.2); Total Protein 7.2 g/dL (6.6-8.7); Troponin(5th) Baseline < 6 ng/L (0-10)
--- NOTE | 2024-05-22 21:15 | ECG_ITS ---
[facility] Test Date: 2024-05-22 Pat Name: Candace Gresham Department: Room: Gender: Female Weight Yardage Checker: : 1980 Requested By: Johan Manzanares Order Number: [id number] David MD: Javier Dillon M.D. Measurements Intervals [place] Rate: 85 P: -18 LA: 177 QRS: -30 QRSD: 85 T: -18 QT: 365 QTc: 435 Interpretive Statements SINUS RHYTHM BORDERLINE LEFT AXIS DEVIATION [QRS AXIS < -20] VOLTAGE CRITERIA FOR LVH [MEETS CRITERIA IN ONE OF: R(aVL), S(V1), R(V5), R(V5/V6)+S(V1)] Compared to ECG 05/22/2024 20:08:31 Left ventricular hypertrophy now present Electronically Signed On 05-23-2024 19:19:40 CDT by Javier Dillon M.D. [id number] [id number]
[2024-05-22] MEDS: methylPREDNISolone sod succ 125 mg/2 mL INJ IVP (21:49)
[2024-05-22] MEDS: ipratropium-albuterol 3 mL Neb INHALATION (22:40)
[2024-05-22 22:48] LABS: Influenza A NEGATIVE (Negative); Influenza B NEGATIVE (Negative); Respiratory Syncytial Virus Ce NEGATIVE (Negative); SARS-CoV-2 PCR NEGATIVE (Negative)
[2024-05-22 23:01] LABS: Troponin 5 2HR Delta 0.00001 ABS# (0-10)
--- NOTE | 2024-05-22 23:13 | ED_ITS ---
HPI - Chest Pain 2 General: Chief Complaint: Chest Pain Stated Complaint: CP SOB Time Seen by Provider: 05/22/24 21:16 History of Present Illness: This patient is a 43-year-old white female who presents to the emergency department complaining of chest pain. She states she has had the pain for 2 days. She has been coughing and does feel somewhat short of breath. She is more short of breath with exertion. She does not have a history of asthma. She does continue to smoke. Associated symptoms: Reports dyspnea Related Data Home Medications ?Medication ?Instructions ?Recorded ?Confirmed cephalexin 500 mg capsule 500 mg PO TID 05/15/2405/15 Previous Rx's ?Medication ?Instructions ?Recorded sulfamethoxazole 800 1 tab PO BID 10 days #20 tab s 05/15/24 mg-trimethoprim 160 mg tablet (Bactrim DS) prednisone 5 mg tablets in a dose See Rx Instructions PO .COMPLEX 05/22/24 pack #21 ea Allergies Allergy/AdvReac Type Severity Reaction Status Date / Time lamotrigine (From Lamictal) Allergy ALGY-Rash Verified 01/17/24 08:55 Review of Systems 2 General: Reports: 10 or more systems reviewed and unremarkable except in HPI and below Card: Reports: chest pain Resp: Reports: dyspnea and non-productive cough PFSH ED 2 PFSH: Medical History Asthma Surgical History H/O tubal ligation Family History Mother Cancer unknown Grandfather Cancer unknown what kind Social History Smoking and tobacco/nicotine status: current every day tobacco/nicotine user Alcohol intake: current Alcohol intake frequency: holidays/special occasions only Current gender identity: Female Physical Exam 2 Const: COMMON NORMALS: no acute distress, patient oriented x3 and no limitations GENERAL APPEARANCE: cooperative and comfortable HENMT: COMMON NORMALS: normocephalic, atraumatic, Normal nasal mucous membranes and turbinates present, moist oral mucous membranes and oropharynx normal HEAD & SCALP: normal to inspection, normocephalic and atraumatic F ARIEL & SINUS: normal facial exam NOSE: Normal nasal mucous membranes and turbinates present Eye: COMMON NORMALS: Equal, round and reactive pupils present, EOMs intact bilaterally and conjunctivae normal GENERAL EYE: appearance normal, both eyes and all related structures CONJUNCTIVA: Yes conjunctivae normal PUPIL: Yes Equal, round and reactive pupils present Neck/C-Spine: COMMON NORMALS: supple and no JVD Chest: COMMONS NORMALS: normal inspection of the chest Resp: COMMON NORMALS: normal respiratory effort AUSCULTATION: wheezes and diminished lung sounds (somewhat) Cardio: COMMON NORMALS: no JVD, regular rate, regular rhythm, No gallops present (Cardio), No murmurs present (Cardio) and No rub (Cardio) RATE: r egular rate RHYTHM: regular rhythm GI: COMMON NORMALS: Normal to inspection, nondistended, normoactive bowel sounds present, Soft to palpation and non-tender AUSCULTATION: Yes normoactive bowel sounds PALPATION: Yes Soft to palpation : COMMON NORMALS: Yes no CVA tenderness BLADDER/KIDNEY EXAM: Yes no CVA tenderness Back/Pelvis: COMMON NORMALS: no CVA tenderness and thoracic and lumbar spine normal to inspection Extremity: COMMON NORMALS: normal to inspection Neuro: COMMON NORMALS: patient oriented x3 and CN's II-XII intact bilaterally Psych: COMMON NORMALS: mental status grossly normal, Normal thought process present and cooperative THOUGHT PROCESS: Normal thought process present Skin: COMMON NORMALS: no rashes or lesions noted, turgor normal and no jaundice GENERAL SKIN EXAM: no rashes or lesions noted and turgor normal Course 2 Vital Signs: Vital signs: Vital Signs Temperature 98.0 F 05/22/24 19:36 Pulse Rate 82 05/22/24 22:43 Respiratory Rate 18 05/22/24 22:43 Blood Pressure 118/87 05/22/24 22:33 Pulse Oximetry 94 05/22/24 22:43 Oxygen Delivery Me thod Room Air 05/22/24 22:43 MDM - Chest Pain Medical Decision Making EKG revealed normal sinus rhythm with no ST segment abnormalities. Chest x-ray did not reveal any infiltrates. CBC and CMP were normal. Troponin was less than 6 with a 2-hour level of 6. She tested negative for influenza, RSV and COVID. We did give her a DuoNeb treatment and 125 mg of Solu-Medrol IV. I do think her symptoms are related to her asthma. I did place her on a prednisone burst and taper. Recommended she use her metered-dose inhaler every 4 hours as needed at home. Stop smoking. Follow-up with primary care physician next week for recheck. She was discharged in stable condition. Lab Data 05/22/24 20:04 05/22/24 20:04 Radiology Impressions Chest X-Ray 05/22/24 19:34 IMPRESSION: No acute cardiopulmonary process. Laboratory Results WBC 9.45 10^3/uL (3.29-11.43) 05/22/24 20:04 RBC 4.86 10^6/uL (3.85-5.65) 05/22/24 20:04 Hgb 14.90 g/dL (11.27-16.99) 05/22/24 20:04 Hct 43.8 % (36-47) 05/22/24 20:04 MCV 90.1 fl (85-98) 05/22/24 20: MCH 30.7 pg (27-33) 05/22/24 20: MCHC 34.0 g/dL (30-55) 05/22/24 20: RDW 13.2 % (12.1-15.1) 05/22/24 20:04 Plt Count 341 10^3/cmm (157-399) 05/22/24 20:04 MPV 9.3 fL (7.4-10.4) 05/22/24 20:04 Neut % (Auto) 53.1 % 05/22/24 20: Lymph % (Auto) 35.2 % 05/22/24 20:04 Coles % (Auto) 7.3 % 05/22/24 20:04 Eos % (Auto) 3.0 % 05/22/24 20:04 Baso % (Auto) 1.2 % 05/22/24 20: Neut # (Auto) 5.02 10^3/uL (1.8-7.7) 05/22/24 20:04 Lymph # (Auto) 3.3 10^3/uL (0.8-4.8) 05/22/24 20:04 Coles # (Auto) 0.7 10^3/uL (0.2-0.9) 05/22/24 20:04 Eos # (Auto) 0.3 10^3/uL (0.0-0.8) 05/22/24 20:04 Baso # (Auto) 0.1 10^3/uL (0.0-0.1) 05/22/24 20:04 Nucleated RBC % (auto) 0 % 05/22/24 20:04 Nucleated RBCs # 0.0 /100WBC 05/22/24 20:04 Sodium 140 mmol/L (136-145) 05/22/24 20:04 Potassium 3.9 mmol/L (3.5-5.1) 05/22/24 20:04 Chloride 101 mmol/L (98-107) 05/22/24 20:04 Carbon Dioxide 25 mmol/L (22-29) 05/22/24 20:04 Anion Gap 17.9 (5-19) 05/22/24 20:04 BUN 8 mg/dL (6-20) 05/22/24 20:04 Creatinine 0.6 mg/dL (0.5-0.9) 05/22/24 20:04 GFR Calculation 108.1 mL/min (90-130) 05/22/24 20:04 Glucose 102 mg/dL (65-115) 05/22/24 20:04 Calculated Osmolality 289 mOsm/kg (285-295) 05/22/24 20:04 Calcium 9.7 mg/dL (8.5-10.5) 05/22/24 20:04 Total Bilirubin 0.3 mg/dL (0.15-1.2) 05/22/24 20:04 AST 13 U/L (0-32) 05/22/24 20: ALT 11 U/L (0-33) 05/22/24 20:04 Alkaline Phosphatase 115 U/L (35-105) H 05/22/24 20:04 Troponin T Baseline < 6 ng/L (0-10) 05/22/24 20:04 Troponin T 120 Minute 6.00 ng/L (0-10) 05/22/24 22:08 Delta Troponin T 0.03297 ABS# (0-10) 05/22/24 22:08 Total Protein 7.2 g/dL (6.6-8.7) 05/22/24 20:04 Albumin 4.5 g/dL (3.5-5.2) 05/22/24 20:04 Globulin 2.7 g/dL (1.3-4.6) 05/22/24 20:04 Influenza A (PCR) Negative (Negative) 05/22/24 22:05 Influenza Type B (PCR) Negative (Negative) 05/22/24 22:05 RSV (PCR) Negative (Negative) 05/22/24 22:05 SARS-CoV-2 (PCR) Negative (Negative) 05/22/24 22:05 All radiology interpretation(s) finalized by discharge Discharge Plan Discharge Patient Disposition: Home Clinical Impression: Asthma Qualifiers: Asthma severity: mild Asthma persistence: intermittent Asthma complication type: with acute exacerbation Qualified Code(s): J45.21 - Mild intermittent asthma with (acute) exacerbation Chest pain Qualifiers: Chest pain type: unspecified Qualified Code(s): R07.9 - Chest pain, unspecified Condition: Stable Prescriptions: New prednisone 5 mg tablets,dose pack See Rx Instructions .ROUTE .COMPLEX Qty: 21 0RF Rx Instructions: prednisone 5 mg: take 8 tablets (40 mg) on Day 1; 7 tablets (35 mg) on Day 2; then decrease by 1 tablet every day until finished No Action cephalexin 500 mg capsule 500 mg PO TID sulfamethoxazole-trimethoprim [Bactrim DS] 800-160 mg tablet 1 tab PO BID 10 Days Qty: 20 0RF Discharge Orders: Discharge ED (Routine); Ordered 05/22/24 Ordered By: Niranjan Leyva Referrals: Ivelisse Fraire DO [Primary Care Provider] - Patient Instructions: Asthma Exacerbation - Adult, Chest Pain (DC) Activity Restrictions/Additional Instructions: Take the prednisone as prescribed. Use your inhaler every 4 hours as needed. Stop smoking. Follow-up with your primary care physician next week for recheck. Print Language: Kazakh Coding Level of Care Code ED Sewer Hand for Cristobal Pickett
== END 2024-05-22 23:30 | disposition home or self-care (01) ==
PROVIDERS: Emergency Medicine; Emergency Provider Emergency Medicine; PCP Family Medicine
DX: J45.21 Mild intermittent asthma with (acute) exacerbation (principal); R07.9 Chest pain, unspecified; Z11.52 Encounter for screening for COVID-19; Z72.0 Tobacco use
CPT/HCPCS: 36415; 71045; 80053; 84484; 85025; 87637; 93005; 94640; 96374; 99285; J2919; J9999

== ENCOUNTER → 2024-06-10 15:46 | Outpatient (BNVA) | payer MEDICAID, SELFPAY | PROVIDERS: PCP Family Medicine; Visit Provider Physician Assistant | DX: M25.561 Pain in right knee (principal); M23.306 Other meniscus derangements, unspecified meniscus, right knee | CPT/HCPCS: 73560; 73565 ==

== ENCOUNTER 2024-06-16 15:33 | Outpatient (CLI) | payer MEDICAID, SELFPAY ==
--- NOTE | 2024-06-16 16:00 | MR_ITS ---
WS: [id number] MRI RIGHT KNEE HISTORY: right knee derangement COMPARISON: Radiographs 06/10/2024 Anterior cruciate ligament: Majority of the ACL fibers are intact. There is central fluid signal within the ACL consistent with an interstitial tear. Posterior cruciate ligament: Intact. Medial collateral ligament: Intact. Posterior lateral corner structures: No posterolateral corner tear. There is a small amount of fluid adjacent to the popliteus tendon. Medial menisci: Intact. Normal signal, size and shape. Lateral meniscus: Intact. Normal signal, size and shape. Extensor mechanism: Small amount of increased T2 signal in the distal quadriceps tendon. No tear. Patellar tendon is intact. Fluid and soft tissue: There is small joint effusion. Small Pearson's cyst. Osseous and articular structures: Patellofemoral compartment: Mild narrowing of the patellofemoral compartment. Mild chondromalacia but no full-thickness cartilage defect. There is subchondral edema in the central superior patella. Medial compartment: No significant narrowing. Cartilage is preserved. Lateral compartment: Minimal narrowing. Cartilage is preserved. There is soft tissue edema superior to the patella and posterior to the distal quadriceps tendon. MR/MR knee RT wo con* [id number] IMPRESSION: 1. Central interstitial tear of the ACL. The anterior and posterior fibers sheryl ear intact otherwise. 2. No meniscal tear. 3. Increased T2 signal in the distal quadriceps tendon. Suggesting a mild spra in. There is also associated edema posterior to the distal quadriceps tendon wi thin the soft tissues. 4. Marrow edema in the central superior patella. 5. Small Pearson's cyst.
== END 2024-06-16 15:34 | disposition home or self-care (01) ==
PROVIDERS: PCP Family Medicine; Visit Provider Physician Assistant
DX: S83.511A Sprain of anterior cruciate ligament of right knee, initial encounter (principal); X58.XXXA Exposure to other specified factors, initial encounter; R93.6 Abnormal findings on diagnostic imaging of limbs; M71.21 Synovial cyst of popliteal space [Baker], right knee; M25.461 Effusion, right knee; M94.261 Chondromalacia, right knee
CPT/HCPCS: 73721

== ENCOUNTER 2024-07-05 13:58 | Emergency (ER) | payer MEDICAID, SELFPAY ==
[2024-07-05 14:06] VITALS: BP 100/69; PULSE 94; RESP 18; TEMP 36.8; O2SAT 95; BMI 28.3
--- NOTE | 2024-07-05 14:14 | XRR_ITS ---
PROCEDURE INFORMATION: Exam: XR Right Ribs with PA Chest Exam date and time: 07/05/2024 2:39 PM Age: 43 years old Clinical indication: Painful respiration; PT C/O back pain x3 days, PT states she has been coughing x3 weeks and states she has coughed so hard that her back hurts. PT states her back pain is more on the right side. PT denies chest pain. ; Additional info: Cough, right rib pain TECHNIQUE: Imaging protocol: Radiologic exam of the right ribs with PA chest. Views: 3 views COMPARISON: CR (CHEST, ) 05/22/2024 8:15 PM FINDINGS: Lungs: Unremarkable. No consolidation. Pleural spaces: Unremarkable. No pleural effusion. No pneumothorax. Heart/Mediastinum: Unremarkable. No cardiomegaly. Bones/joints: Unremarkable. XR/XR ribs RT mn 3V w CXR1V [id number] IMPRESSION: No acute cardiopulmonary abnormality. No displaced acute rib fracture. Recommend correlation with point tenderness and follow-up imaging as clinically indicated.
--- NOTE | 2024-07-05 14:15 | W.ED.BACK ---
Documented by User: RAVEN Christine 07/05/24 15:17 HPI - Back Pain/Injury General: Chief Complaint: Back Pain/Injury Stated Complaint: cough, back pain Time Seen by Provider: 07/05/24 14:06 History of Present Illness: 43-year-old female comes in today for complaints of right side rib pain and persistent cough. Patient was seen at the end of May and was diagnosed with asthma at that time and was given some steroids and an inhaler. Patient reports improvement of symptoms but continues to have cough. Patient reports she is coughed so much now her right ribs are hurting. Patient denies any falls or injuries. Patient appears nontoxic. Related Data Home Medications ?Medication ?Instructions ?Recorded ?Confirmed pseudoephedrine HCl 30 mg tablet 30 mg PO Q6H 07/02/24 07/05/24 albuterol sulfate 90 mcg/actuation See Rx Instructions .Route .COMPLEX 07/05/24 07/05/24 aerosol inhaler (Ventolin HFA) prednisone 5 mg tablet 5 mg PO QID 07/05/24 07/05/24 Previous Rx's ?Medication ?Instructions ?Recorded right hinged knee brace #1 ea 07/02/24 benzonatate 100 mg capsule 100 mg PO TID PRN cough #15 caps 07/05/24 celecoxib 200 mg capsule 200 mg PO BID #20 caps 07/05/24 methocarbamol 750 mg tablet 750 mg PO Q6H PRN muscle pain #20 07/05/24 tabs Allergies Allergy/AdvReac Type Severity Reaction Status Date / Time lamotrigine (From Lamictal) Allergy ALGY-Rash Verified 07/02/24 08:19 Review of Systems General: Reports: 10 or more systems reviewed and unremarkable except in HPI and below Resp: Reports: non-productive cough and pain on inspiration PFSH ED PFSH: Medical History Asthma Surgical History H/O tubal ligation Family History Mother Cancer unknown Grandfather Cancer unknown what kind Social History Smoking and tobacco/nicotine status: current every day tobacco/nicotine user Alcohol intake: current Alcohol intake frequency: holidays/special occasions only Current gender identity: Female Physical Exam Const: COMMON NORMALS: alert HENMT: COMMON NORMALS: normocephalic HEAD & SCALP: normocephalic Neck/C-Spine: COMMON NORMALS: full ROM Chest: COMMONS NORMALS: normal inspection of the chest and normal palpation of the breasts CHEST: Yes tenderness rib (right lateral) BREAST/AXILLA PALPATION: Yes normal palpation of the breasts Resp: COMMON NORMALS: clear to auscultation bilaterally EFFORT & INSPECTION: Yes able to speak in complete sentences AUSCULTATION: clear to auscultation bilaterally Cardio: COMMON NORMALS: regular rhythm RHYTHM: regular rhythm GI: COMMON NORMALS: non-tender Back/Pelvis: COMMON NORMALS: thoracic and lumbar spine normal to inspection Extremity: COMMON NORMALS: full ROM Neuro: SENSORIUM/ORIENTATION: Yes alert Psych: COMMON NORMALS: normal affect Skin: COMMON NORMALS: no wounds Course Vital Signs: Vital signs: Vital Signs Temperature 98.3 F 07/05/24 14:06 Pulse Rate 88 07/05/24 15:21 Respiratory Rate 18 07/05/24 14:06 Blood Pressure 141/71 07/05/24 15:21 Pulse Oximetry 99 07/05/24 15:21 Oxygen Delivery Me thod Room Air 07/05/24 14:06 MDM - Back Pain/Injury Medical Decision Making 43-year-old female comes in today for complaints of right chest wall pain and tenderness to palpation of the ribs. Patient appears nontoxic. Patient appears in no acute distress. Lungs have good air movement throughout. Patient is tender to the lateral chest wall on the right side. No crepitus or subcu emphysema is noted. Differential diagnosis includes costochondritis, rib contusion, pleurisy, pneumonia. Right-sided rib films with a AP chest noted no pneumonia or fractures of the ribs. Reviewed exam with patient with recommendation for treatment and follow-up. Patient reported understanding agreed to plan. Labs Radiology Impressions Ribs X-Ray 07/05/24 14:14 IMPRESSION: No acute cardiopulmonary abnormality. No displaced acute rib fracture. Recommend correlation with point tenderness and follow-up imaging as clinically indicated. All radiology interpretation(s) finalized by discharge Discharge Plan Discharge Patient Disposition: Home Clinical Impression: Cough in adult, Costal chondritis Condition: Stable Prescriptions: New benzonatate 100 mg capsule 100 mg PO TID PRN (Reason: cough) Qty: 15 0RF celecoxib 200 mg capsule 200 mg PO BID Qty: 20 0RF Rx Instructions: for pain and inflammation methocarbamol 750 mg tablet 750 mg PO Q6H PRN (Reason: muscle pain) Qty: 20 0RF No Action pseudoephedrine HCl 30 mg tablet 30 mg PO Q6H (DME) right hinged knee brace See Rx Instructions .Route .MEDSUPPLY Qty: 1 0RF Rx Instructions: As directed prednisone 5 mg tablet 5 mg PO QID albuterol sulfate [Ventolin HFA] 90 mcg/actuation HFA aerosol inhaler See Rx Instructions .ROUTE .COMPLEX Rx Instructions: INHALE 2 PUFFS BY MOUTH EVERY 4 TO 6 HOURS NEEDED FOR WHEEZING OR COUGH Discharge Orders: Discharge ED (Routine); Ordered 07/05/24 Ordered By: Narciso Bernabe Referrals: Ivelisse Fraire DO [Primary Care Provider] - Discharge Diet: Usual diet Discharge Activity: Increase activity as tolerated Patient Instructions: Musculoskeletal Pain (ED) Activity Restrictions/Additional Instructions: Drink plenty of water and fluids. Use celecoxib to help with pain and inflammation. Use benzonatate Perles for coughing cessation. Use methocarbamol for further pain relief. Methocarbamol may make you sleepy so you should not drive or operate equipment while taking. Follow-up with primary care in 3 to 5 days for recheck. Return to ED for worsening shortness of breath or high fever. Print Language: Togolese Coding Level of Care Code ED Wireless Cellular Technician for [employer] Documented by User: Desmond Fung DO 07/05/24 17:17 HPI - Back Pain/Injury General: Chief Complaint: Back Pain/Injury Stated Complaint: cough, back pain Time Seen by Provider: 07/05/24 14:06 Related Data Home Medications ?Medication ?Instructions ?Recorded ?Confirmed pseudoephedrine HCl 30 mg tablet 30 mg PO Q6H 07/02/24 07/05/24 albuterol sulfate 90 mcg/actuation See Rx Instructions .Route .COMPLEX 07/05/24 07/05/24 aerosol inhaler (Ventolin HFA) prednisone 5 mg tablet 5 mg PO QID 07/05/24 07/05/24 Previous Rx's ?Medication ?Instructions ?Recorded right hinged knee brace #1 ea 07/02/24 benzonatate 100 mg capsule 100 mg PO TID PRN cough #15 caps 07/05/24 celecoxib 200 mg capsule 200 mg PO BID #20 caps 07/05/24 methocarbamol 750 mg tablet 750 mg PO Q6H PRN muscle pain #20 07/05/24 tabs Allergies Allergy/AdvReac Type Severity Reaction Status Date / Time lamotrigine (From Lamictal) Allergy ALGY-Rash Verified 07/02/24 08:19 [facility] ED PFSH: Medical History Asthma Surgical History H/O tubal ligation Family History Mother Cancer unknown Grandfather Cancer unknown what kind Social History Smoking and tobacco/nicotine status: current every day tobacco/nicotine user Alcohol intake: current Alcohol intake frequency: holidays/special occasions only Current gender identity: Female Course Vital Signs: Vital signs: Vital Signs Temperature 98.3 F 07/05/24 14:06 Pulse Rate 88 07/05/24 15:21 Respiratory Rate 18 07/05/24 14:06 Blood Pressure 141/71 07/05/24 15:21 Pulse Oximetry 99 07/05/24 15:21 Oxygen Delivery Me thod Room Air 07/05/24 14:06 MDM - Back Pain/Injury Medical Decision Making 43-year-old female comes in today for complaints of right chest wall pain and tenderness to palpation of the ribs. Patient appears nontoxic. Patient appears in no acute distress. Lungs have good air movement throughout. Patient is tender to the lateral chest wall on the right side. No crepitus or subcu emphysema is noted. Differential diagnosis includes costochondritis, rib contusion, pleurisy, pneumonia. Right-sided rib films with a AP chest noted no pneumonia or fractures of the ribs. Reviewed exam with patient with recommendation for treatment and follow-up. Patient reported understanding agreed to plan. Chart reviewed and patient discussed with midlevel. Agree with assessment and plan. Labs Radiology Impressions Ribs X-Ray 07/05/24 14:14 IMPRESSION: No acute cardiopulmonary abnormality. No displaced acute rib fracture. Recommend correlation with point tenderness and follow-up imaging as clinically indicated. Discharge Plan Discharge Patient Disposition: Home Clinical Impression: Cough in adult, Costal chondritis Condition: Stable Prescriptions: New benzonatate 100 mg capsule 100 mg PO TID PRN (Reason: cough) Qty: 15 0RF celecoxib 200 mg capsule 200 mg PO BID Qty: 20 0RF Rx Instructions: for pain and inflammation methocarbamol 750 mg tablet 750 mg PO Q6H PRN (Reason: muscle pain) Qty: 20 0RF No Action pseudoephedrine HCl 30 mg tablet 30 mg PO Q6H (DME) right hinged knee brace See Rx Instructions .Route .MEDSUPPLY Qty: 1 0RF Rx Instructions: As directed prednisone 5 mg tablet 5 mg PO QID albuterol sulfate [Ventolin HFA] 90 mcg/actuation HFA aerosol inhaler See Rx Instructions .ROUTE .COMPLEX Rx Instructions: INHALE 2 PUFFS BY MOUTH EVERY 4 TO 6 HOURS NEEDED FOR WHEEZING OR COUGH Discharge Orders: Discharge ED (Routine); Ordered 07/05/24 Ordered By: Narciso Bernabe Referrals: Ivelisse Fraire DO [Primary Care Provider] - Discharge Diet: Usual diet Discharge Activity: Increase activity as tolerated Patient Instructions: Musculoskeletal Pain (ED) Activity Restrictions/Additional Instructions: Drink plenty of water and fluids. Use celecoxib to help with pain and inflammation. Use benzonatate Perles for coughing cessation. Use methocarbamol for further pain relief. Methocarbamol may make you sleepy so you should not drive or operate equipment while taking. Follow-up with primary care in 3 to 5 days for recheck. Return to ED for worsening shortness of breath or high fever. Print Language: Togolese Coding Level of Care Code ED Wireless Cellular Technician for Cristobal Pickett
[2024-07-05 15:21] VITALS: BP 141/71; PULSE 88; O2SAT 99
== END 2024-07-05 15:22 | disposition home or self-care (01) ==
PROVIDERS: Emergency Provider Nurse Practitioner Family; PCP Family Medicine
DX: R05.9 Cough, unspecified (principal); M94.0 Chondrocostal junction syndrome [Tietze]; Z72.0 Tobacco use
CPT/HCPCS: 71101; 99283

== ENCOUNTER → 2024-08-26 15:14 | Outpatient (BNVA) | payer MEDICAID, SELFPAY | PROVIDERS: PCP Family Medicine; Visit Provider Orthopaedic Surgery | DX: M54.9 Dorsalgia, unspecified (principal); M54.6 Pain in thoracic spine; G89.29 Other chronic pain | CPT/HCPCS: 72072 ==

== ENCOUNTER → 2024-11-25 08:47 | Outpatient (BNVA) | payer MEDICAID, SELFPAY | PROVIDERS: PCP Family Medicine; Visit Provider Orthopaedic Surgery | DX: M54.9 Dorsalgia, unspecified (principal); M54.6 Pain in thoracic spine | CPT/HCPCS: 72072 ==

== ENCOUNTER 2025-02-13 13:18 | Outpatient (CLI) | payer MEDICAID, SELFPAY ==
--- NOTE | 2025-02-13 13:23 | MM_ITS ---
WS: [id number] BILATERAL 3D TOMOSYNTHESIS DIGITAL SCREENING MAMMOGRAPHY WITH CAD CLINICAL INFORMATION: SCREENING HISTORY: Screening mammogram. No current complaints. COMPARISON: 2023 TECHNIQUE: Bilateral CC and MLO views. FINDINGS: Scattered fibroglandular densities bilaterally. New asymmetric density lower inner LEFT breast measuring 6 mm. Recommend LEFT breast diagnostic mammography and ultrasound if persistent. Unremarkable RIGHT breast. MM/MM scr BI tomosynthesis [id number] IMPRESSION: DENSITY: There are scattered areas of fibroglandular density. BI-RADS: 0 - Incomplete: Need additional imaging evaluation. FOLLOW UP: Need Additional Imaging Recommend LEFT breast diagnostic mammography and ultrasound if persistent.
== END 2025-02-13 13:19 | disposition home or self-care (01) ==
LOC: RAD 13:19
PROVIDERS: PCP Family Medicine; Visit Provider Family Medicine
DX: Z12.31 Encounter for screening mammogram for malignant neoplasm of breast (principal); R92.323 Mammographic fibroglandular density, bilateral breasts; N64.89 Other specified disorders of breast
CPT/HCPCS: 77063; 77067

== ENCOUNTER 2025-03-09 14:22 | Outpatient (CLI) | payer MEDICAID, SELFPAY ==
--- NOTE | 2025-03-09 14:28 | MM_ITS ---
WS: [id number] LEFT 3D TOMOSYNTHESIS DIGITAL MAMMOGRAPHY WITH CAD CLINICAL INFORMATION: ABNORMAL MAMMO HISTORY: Additional views COMPARISON: 02/13/2025 TECHNIQUE: 3 views of the left breast were obtained. FINDINGS: Scattered fibroglandular densities of the left breast. Again seen is the 4 to 5 mm asymmetric density retroareolar 2 cm from the nipple ULTRASOUND BREAST LEFT TECHNIQUE: Ultrasound left breast focused area of concern. CLINICAL INFORMATION: ABNORMAL MAMMO FINDINGS: Ultrasound LEFT breast retroareolar. Incidental ductal ectasia. No suspicious cystic or solid lesions. No findings to target for biopsy. Recommend return to annual screening mammography. MM/MM diag LT tomosynthesis [id number] IMPRESSION: DENSITY: There are scattered areas of fibroglandular density. BI-RADS: 2 - Benign. FOLLOW UP: 1 Year Follow-up Recommend return to annual screening mammography.
== END 2025-03-09 14:23 | disposition home or self-care (01) ==
LOC: RAD 14:23
PROVIDERS: PCP Family Medicine; Visit Provider Family Medicine
DX: R92.8 Other abnormal and inconclusive findings on diagnostic imaging of breast (principal); R92.322 Mammographic fibroglandular density, left breast; N60.42 Mammary duct ectasia of left breast
CPT/HCPCS: 76642; 77061; 77063